=== PATIENT | male | born 1955 | race Caucasian/White ===

== ENCOUNTER 2024-06-01 18:13 | Inpatient (IN) ==
--- NOTE | 2024-06-01 19:16 | Emergency Department Note ---
Impression & Plan CHI (closed head injury), Contusion of face, Altered mental status ED Provider Note ED Provider Note NAME: BRADEN MCNULTY AGE:69 SEX: Male : 1955 ARRIVES VIA: Private vehicle INFORMANT: Brother ED PROVIDER(s): Jacque Birmingham DO CHIEF COMPLAINT: Concern for head injury, increased confusion HPI: This is a 69-year-old male brought in by his brother due to concern for increased confusion and obvious head/facial trauma. Patient cannot provide any adequate history here stating he does have bruises of his face but states it does not hurt. He denies falls or injuries. He will go off on tangents talking about trying to find his phone and then about laying in bed. Patient does have a prior history of mild cognitive impairment, brother at bedside tries to help with history. Patient denies any medication changes. He denies any use of anticoagulation. Brother states neighbors contacted him due to concern for abnormal behavior and increased confusion. Unknown last known well. PAST MEDICAL HISTORY:See Below PAST SURGICAL HISTORY:See Below FAMILY HISTORY:See Below SOCIAL HISTORY:See Below HOME MEDICATIONS:See Below ALLERGIES:See Below VITALS:See Below PHYSICAL EXAMINATION: GENERAL: alert, well appearing, well nourished, no distress, non-toxic HEAD: Obvious facial contusions noted to the left periorbital region and left zygomatic arch, dried blood noted to vertex and superior occipital region of the head, no obvious deformity to the skull, no bellamy signs, no raccoon eyes EYE EXAM: normal conjunctiva, PERRL and EOM's grossly intact OROPHARYNX: no exudate, no erythema, lips, buccal mucosa, and tongue normal and mucous membranes are moist NECK: supple, no nuchal rigidity, no adenopathy, non-tender, FROM LUNGS: Clear to auscultation. Normal chest wall mechanics, no w/r/r HEART: no murmurs, S1 normal and S2 normal CHEST WALL: no crepitus, no tenderness with palpation ABDOMEN: abdomen soft, non-tender, normo-active bowel sounds, no masses, no rebound or guarding. BACK: Back is symmetrical on inspection and there is no deformity, no midline tenderness, no CVA tenderness. No evidence of trauma or deformity. SKIN: no rashes, petechiae, orbruising UPPER EXTREMITIES: upper extremities are grossly normal. FROM, nml pulses b/l. No evidence of trauma or deformity. LOWER EXTREMITIES: No pitting edema. FROM, nml pulses b/l. No evidence of trauma or deformity. NEURO EXAM: Confused, cranial nerves II-XII grossly intact, normal speech, no facial droop,nogross weakness of arms, no gross weakness of legs. Gross sensation intact. No ataxia. Vital Signs: reviewed and remarkable Differential Diagnosis: CHI, ICH, CVA, fracture, ligamentous injury, spinal cord injury, subluxation, dislocation, as well as others were considered MEDICAL DECISION MAKING: This is a 69 yo male who presents to the ER with brother at bedside due to confusion and obvious trauma with unknown recent injuries/fall. Labs drawn and sent, IV established, EKG and xrays performed and interpreted at bedside, and patient placed on telemetry. He was sent for CT's additionally due to obvious facial trauma which patient is not able to explain. Patient confused and tangential at bedside. He could follow simple commands. He denied falls/injury however neightbors contacted brother due to concern as well. Labs and imaging reassuring. We discussed ddx. Brother does state he has a prior hx of etoh abuse. Brother concerned given confusion, obvious trauma, and patient lives alone. We discussed all results. Brother in agreement with plan for additional inpatient evaluation and mgmt. Case discussed with the hospitalist team for addtional evaluation and mgmt. Consultation(s): 2124: Discussed with Dr. Dana monsalve. He states no SDH. 2329: Discussed with Dr. Dowd, [facility] hospitalist team, for additional evaluation and management. ER Treatment Provided: See below 2250: Patient's brother updated again at bedside. In agreement with plan for additional inpatient evaluation. He states patient was scheduled to see neurology as an outpatient tomorrow. Diagnostics Interpreted By Me: -ECG: Normal sinus at 60, normal axis, normal intervals, no acute ST/T wave changes -Cardiac Monitoring: An order was placed for continuous cardiac monitoring. The monitor shows a rate of 66 with normal sinus rhythm. -Laboratory studies: As stated above and show below. -Imaging studies: X-ray Chest: A single view study of the chest was reviewed and was negative for cardiomegaly, focal infiltrate, effusion, pulmonary edema, or wide mediastinum. No rib fracture, no pneumothorax. X-ray pelvis: No obvious fracture or dislocation. Triage Nursing Note Reviewed Prior/Outside Records Reviewed Critical Care: Critical care of 39 min performed to assess and manage high likelihood of life- threatening AMS and trauma, involving labs and imaging performed with assessment to evaluate AMS and trauma diagnosis with frequent reassessment. This time includes bedside time, treatment discussions with patient/family/consultants, documentation time and excludes procedure time. Past Med/Surg History Problem List (Updated 06/02/24 @ 09:54 by Juan Dawn MD) Encephalopathy Hypertension Hypokalemia Elevated troponin History of alcohol abuse Altered mental status (Acute) Contusion of face (Acute) CHI (closed head injury) (Acute) Insomnia Fatigue Mild cognitive impairment Rash Obstructive sleep apnea Hypogonadism male Fatigue Pituitary adenoma Hypothyroidism Major neurocognitive disorder Social History Smoking Status: Never smoker Hx Alcohol Use: Yes Hx Substance Use: No Preferred Language: [place] Communication Ability: Impaired Social Media Marketing Analyst Required: No Beliefs That Will Affect Care: None Current Living Situation: Alone Feels Safe at Home: Yes Assistive Devices: CPAP, Glasses and Hearing Aid - Bilateral Allergies Allergies Allergy/AdvReac Type Severity Reaction Status Date / Time morphine Allergy Unknown Verified 05/20/24 14:45 Home Meds Home Medications Medication Instructions Recorded Confirmed latanoprost 0.005 % eye drops 1 drp ophthalmic (eye) HS 01/19/22 06/01/24 pantoprazole 40 mg tablet,delayed 40 mg PO DAILYBB 01/19/22 06/01/24 release omega 4-puj-vpk-fish oil 60 mg-90 1 cap PO BID 10/06/22 06/01/24 mg-500 mg capsule (Fish Oil) quetiapine 300 mg tablet (Seroquel) 150 mg PO HS 04/21/23 06/01/24 chlorthalidone 25 mg tablet 25 mg PO QAM 12/01/23 06/01/24 azelastine 137 mcg (0.1 %) nasal 2 spray intranasal BID 12/14/23 06/01/24 spray zolpidem 10 mg tablet 10 mg PO HS 05/20/24 06/01/24 atorvastatin 20 mg tablet 20 mg PO HS 06/01/24 06/01/24 fluticasone propionate 50 2 spray intranasal DAILY 06/01/24 06/01/24 mcg/actuation nasal spray,suspension ipratropium bromide 42 mcg (0.06 2 spray intranasal TID PRN 06/01/24 06/01/24 %) nasal spray Allergic Symptoms levothyroxine 50 mcg tablet 50 mcg PO DAILYBB 06/01/24 06/01/24 losartan 50 mg tablet 50 mg PO HS 06/01/24 06/01/24 trazodone 100 mg tablet 200 mg PO HS 06/01/24 06/01/24 Previous Rx's Medication Instructions Recorded syringe with needle 3 mL 25 x 5/8" #50 ea 04/21/23 (BD Eclipse Luer-Alba) modafinil 100 mg tablet 100 mg PO DAILY #30 tabs 05/16/24 Results & Data (ED) Vital Signs Vital Signs - 24 hr 06/01/24 18:32 06/01/24 22:00 Temperature 36.8 C Temperature Source Temporal Artery Scan Pulse Rate 69 Pulse Rate [Finger] 63 Pulse Rhythm [Finger] Regular Pulse Strength [Finger] Normal Respiratory Rate 18 20 Respiratory Effort / Characteristics Non-Labored Spontaneous Non-Labored Spontaneous Respiratory Depth Normal Normal Respiratory Pattern Regular Blood Pressure 142/81 H Blood Pressure [Right Arm] 136/75 Blood Pressure Mean 101 Blood Pressure Mean [Right Arm] 95 Blood Pressure Position Sitting Blood Pressure Position [Right Arm] Lying Pulse Oximetry 97 97 Oxygen Delivery Method Room Air Room Air Sepsis Recent Fever Within 48 Hours No Sepsis New/Unexplained Change in Mental Status No Sepsis Action Taken by Nursing No Action Required Laboratory Data 06/01/24 19:08 06/01/24 19:08 Lab Results 06/01/24 06/01/24 Range/Units 19:08 22:00 WBC 11.29 H (4.8-10.8) K/ul RBC 4.73 (4.70-6.10) M/uL Hgb 14.6 (14.0-18.0) g/dl Hct 40.0 L (42.0-52.0) % MCV 84.6 (80.0-100.0) fL MCH 30.9 (25.0-34.0) pg MCHC 36.5 H (32.0-36.0) g/dL RDW Std Deviation 38.9 (36.4-46.3) fL RDW Coeff of Elsie 12.6 (11.5-14.5) % Plt Count 288 (130-400) K/uL MPV 9.5 (9.4-12.4) fL Immature Gran % (Auto) 0.2 % Neut % (Auto) 71.0 % Lymph % (Auto) 18.2 % [place] % (Auto) 10.0 % Eos % (Auto) 0.3 % Baso % (Auto) 0.3 % Neut # (Auto) 8.02 H (1.40-6.50) K/uL Lymph # (Auto) 2.06 (1.20-3.40) K/uL [place] # (Auto) 1.13 H (0.11-0.59) K/uL Eos # (Auto) 0.03 (0.00-0.50) K/uL Baso # (Auto) 0.03 (0.00-0.20) K/uL Immature Gran # (Auto) 0.02 (0.01-0.20) K/uL ESR 15 (0-20) mm/hr PT 11.0 (9.0-12.0) Seconds INR 1.0 (0.9-1.1) Sodium 135 L (136-145) mmol/L Potassium 3.0 L (3.5-5.1) mmol/L Chloride 94 L (98-107) mmol/L Carbon Dioxide 32 (21-32) mmol/L Anion Gap 9 (3-11) BUN 19 (6-23) mg/dl Creatinine 1.01 (0.6-1.4) mg/dl Est Cr Clr Drug Dosing 65.8 ml/min Est GFR ( Amer) 87.6 ml/min Est GFR (Non-Af Amer) 75.5 ml/min BUN/Creatinine Ratio 18.8 (10-20) Glucose 115 H (70-99(Fasting)) mg/dl Calcium 10.2 (8.6-10.3) mg/dl Magnesium 2.3 (1.7-2.4) mg/dl Total Bilirubin 1.5 H (0.2-1.0) mg/dl AST 78 H (13-39) U/L ALT 34 (7-52) U/L Alkaline Phosphatase 59 (34-104) U/L Troponin I High Sens 66.8 H* (0-20) pg/ml Total Protein 7.5 (6.0-8.3) gm/dl Albumin 4.6 (3.4-5.0) gm/dl Globulin 2.9 (2.5-4.0) gm/dl Albumin/Globulin Ratio 1.6 (0.9-2) Lipase 10 L (11-82) U/L Vitamin B12 521 (180-914) pg/ml Folate > 22.30 (>5.38) ng/ml TSH 0.394 (0.300-4.500) uIu/ml Urine Color Yellow Urine Appearance Clear (Clear) Urine pH 6.5 (4.5-7.5) Ur Specific [place] 1.017 (1.000-1.030) Urine Protein Trace H (Negative) Urine Glucose (UA) Negative (Negative) Urine Ketones Trace H (Negative) Urine Blood Negative (Negative) Urine Nitrite Negative (Negative) Urine Bilirubin Negative (Negative) Urine Urobilinogen Negative (Negative) Ur Leukocyte Esterase Negative (Negative) Urine WBC (Auto) 0-5 (0-5) /hpf Urine RBC (Auto) 6-10 H (0-2) /hpf U Hyaline Cast (Auto) 0-2 (0-2) /lpf U Epithel Cells (Auto) 0-2 (0-2) /hpf Urine Bacteria (Auto) None Seen (None Seen) Ethyl Alcohol mg/dL < 10.0 (<10.0) mg/dl Lyme Disease Screen Positive H (Negative) Lyme Tier 2 IgG Confirm Positive H (Negative) Lyme Tier 2 IgM Confirm Negative (Negative) Administered Medications Atorvastatin Calcium (Atorvastatin 40 Mg Tab) 40 mg PO HS LACEY Stop: 07/02/24 20:59 Last Admin: 06/02/24 21:22 Dose: 40 mg Documented By: RHONA Azelastine HCl (Azelastine Hcl 0.1% Nasal 200 Sprays/27,400 Mcg Btl) 2 sprays JOSE BID LACEY Stop: 07/02/24 08:59 Last Admin: 06/03/24 07:24 Dose: 2 sprays Documented By: Admin: 06/02/24 21:23 Dose: 2 sprays Documented By: Admin: 06/02/24 08:14 Dose: 2 sprays Documented By: Fish Oil ([place]-3 (Purified Fish Oil) 1 Gm Cap) 1 gm PO BID LACEY Stop: 07/02/24 08:59 Last Admin: 06/03/24 07:23 Dose: 1 gm Documented By: Admin: 06/02/24 21:22 Dose: 1 gm Documented By: Admin: 06/02/24 08:15 Dose: 1 gm Documented By: Fluticasone Propionate (Fluticasone Propionate Na Spr 16 Gm Btl) 2 sprays JOSE DAILY LACEY Stop: 07/02/24 08:59 Last Admin: 06/03/24 07:24 Dose: 2 sprays Documented By: Admin: 06/02/24 08:14 Dose: 2 sprays Documented By: Thiamine HCl 100 mg/ Syringe 10 mls @ 2 mls/[facility] [place] Stop: 07/02/24 08:59 Last Admin: 06/03/24 07:24 Dose: 2 mls/min Documented By: Admin: 06/02/24 08:16 Dose: 2 mls/min Documented By: Folic Acid 1 mg/ Syringe 10 mls @ 5 mls/min IV QAM LACEY Stop: 07/02/24 08:59 Last Admin: 06/03/24 07:24 Dose: 5 mls/min Documented By: Admin: 06/02/24 08:15 Dose: 5 mls/min Documented By: Latanoprost (Latanoprost 0.005% Op Soln 2.5 Ml Btl) 1 drops OP HS LACEY Stop: 07/02/24 20:59 Last Admin: 06/02/24 21:32 Dose: 1 drops Documented By: RHONA Levothyroxine Sodium (Levothyroxine Sodium 50 Mcg Tablet) 50 mcg PO DAILYBB LACEY Stop: 07/02/24 06:29 Last Admin: 06/03/24 05:42 Dose: 50 mcg Documented By: Admin: 06/02/24 06:07 Dose: 50 mcg Documented By: ANAY Losartan Potassium (Losartan Potassium 50 Mg Tab) 50 mg PO HS LACEY Stop: 07/02/24 20:59 Last Admin: 06/02/24 21:22 Dose: 50 mg Documented By: RHONA Pantoprazole Sodium (Pantoprazole 40 Mg Tab) 40 mg PO DAILYBB LACEY Stop: 07/02/24 06:29 Last Admin: 06/03/24 05:42 Dose: 40 mg Documented By: Admin: 06/02/24 06:07 Dose: 40 mg Documented By: ANAY Quetiapine Fumarate (Quetiapine Fumarate 25 Mg Tablet) 50 mg PO [facility] Stop: 07/02/24 20:59 Last Admin: 06/02/24 21:23 Dose: 50 mg Documented By: RHONA Trazodone HCl (Trazodone Hcl 100 Mg Tab) 200 mg PO LACEY Stop: 07/02/24 20:59 Last Admin: 06/02/24 21:22 Dose: 200 mg Documented By: RHONA Discontinued Medications Sodium Chloride (Nss) 1,000 mls @ 250 mls/hr IV .Q4H LACEY Stop: 07/01/24 18:59 Last Admin: 06/02/24 03:46 Dose: Not Given Documented By: Infusion: 06/02/24 01:36 Dose: Infused Documented By: Infusion: 06/02/24 01:31 Dose: Infused Documented By: Admin: 06/01/24 20:20 Dose: 250 mls/hr Documented By: NEWTON Thiamine HCl 100 mg/ Syringe 10 mls @ 2 mls/min IV NOW STA Stop: 06/01/24 21:32 Last Admin: 06/01/24 22:10 Dose: 2 mls/min Documented By: NEWTON Thiamine HCl 400 mg/ Sodium (Chloride) 54 mls @ 210 mls/hr IV NOW STA Stop: 06/02/24 00:19 Last Infusion: 06/02/24 01:33 Dose: Infused Documented By: Admin: 06/02/24 01:07 Dose: 210 mls/hr Documented By: NEWTON Folic Acid 1 mg/ Syringe 10 mls @ 5 mls/min IV NOW STA Stop: 06/02/24 00:05 Last Admin: 06/02/24 01:08 Dose: 5 mls/min Documented By: NEWTON Potassium Chloride/Sodium Chloride (Normal Saline W/20 Meq Kcl) 20 meq in 1,000 mls @ 100 mls/hr IV .Q10H LACEY Stop: 06/02/24 19:44 Last Infusion: 06/03/24 02:39 Dose: Infused Documented By: Admin: 06/02/24 14:19 Dose: 100 mls/hr Documented By: Infusion: 06/02/24 11:07 Dose: Infused Documented By: Admin: 06/02/24 01:07 Dose: 100 mls/hr Documented By: ASIA Imaging Data Radiologist's Impression: Cervical Spine CT 06/01/24 19:00 Exam(s): CT C SPINE EXAM: CT Cervical Spine Without Intravenous Contrast CLINICAL HISTORY: Reason for exam: trauma. TECHNIQUE: Axial computed tomography images of the cervical spine without intravenous contrast. CTDI is 26.96 mGy and DLP is 745.15 mGy-cm. Automated exposure control was utilized for the study. A dose lowering technique was utilized adhering to the principles of ALARA. COMPARISON: No relevant prior studies available. FINDINGS: Vertebrae: Status post anterior fusion of C4, C5 and C6 with compression plate and screws in place. No evidence of surgical hardware complication. No acute fracture. Discs/spinal canal/neural foramina: No acute findings. No spinal canal stenosis. Soft tissues: Unremarkable. IMPRESSION: No evidence of acute cervical spine pathology. Electronically signed by: Ayla Cortez MD 06/01/24 21:[address] 06/01/24 19:00 Exam(s): CT HEAD Without Contrast EXAM: CT Head Without Intravenous Contrast CLINICAL HISTORY: Reason for exam: trauma. TECHNIQUE: Axial computed tomography images of the head/brain without intravenous contrast. CTDI is 34.62 mGy and DLP is 624.41 mGy-cm. Automated exposure control was utilized for the study. A dose lowering technique was utilized adhering to the principles of ALARA. COMPARISON: Prior brain MRI from May 20, 2023. FINDINGS: Study is limited secondary to motion artifact. Brain: Unremarkable. No hemorrhage. No significant white matter disease. No edema. Ventricles: Unremarkable. No ventriculomegaly. Bones/joints: Unremarkable. No acute fracture. Soft tissues: Unremarkable. Sinuses: Unremarkable as visualized. No acute sinusitis. Mastoid air cells: Unremarkable as visualized. No mastoid effusion. IMPRESSION: No evidence of acute intracranial pathology. Electronically signed by: Ayla Cortez MD 06/01/24 21:[address] 06/01/24 19:01 Exam(s): CT FACIAL Without Contrast EXAM: CT Head and Maxillofacial Without Intravenous Contrast CLINICAL HISTORY: Reason for exam: trauma. TECHNIQUE: Axial computed tomography images of the head/brain and face without intravenous contrast. CTDI is 34.62 mGy and DLP is 624.41 mGy-cm. Automated exposure control was utilized for the study. A dose lowering technique was utilized adhering to the principles of ALARA. COMPARISON: No relevant prior studies available. FINDINGS: This study is suboptimal secondary to motion artifact. Brain: Unremarkable. No hemorrhage. No significant white matter disease. No edema. Ventricles: Unremarkable. No ventriculomegaly. Bones/joints: No acute fracture. Soft tissues: Unremarkable. Sinuses: Chronic maxillary and ethmoid sinusitis. No acute sinusitis. Mastoid air cells: Unremarkable as visualized. No mastoid effusion. Orbits: Unremarkable as visualized. IMPRESSION: No evidence of acute facial bone pathology. Electronically signed by: Ayla Cortez MD 06/01/24 21:10 PM Discharge Plan Visit Data Chief Complaint: Head Injury, Minor Stated Complaint: FALL, FACE AND HEAD ED Provider: Jacque Birmingham Discharge Problem: CHI (closed head injury), Contusion of face, Altered mental status Patient Disposition: Admitted As Inpatient Discharge Instructions Interventions: ED Discharge Assessment Last Done: 06/02/24 02:18
[2024-06-01 19:30] LABS: Basophils # (auto) 0.03 K/uL (0.00-0.20); Basophils % (auto) 0.3 %; Eosinophils # (auto) 0.03 K/uL (0.00-0.50); Eosinophils % (auto) 0.3 %; Hemoglobin 14.6 g/dl (14.0-18.0); Immature Granulocytes # (auto) 0.02 K/uL (0.01-0.20); Immature Granulocytes % (auto) 0.2 %; Lymphocytes # (auto) 2.06 K/uL (1.20-3.40); Lymphocytes % (auto) 18.2 %; Mean Corpuscular Hemoglobin 30.9 pg (25.0-34.0); Mean Corpuscular Hgb Conc 36.5 g/dL (32.0-36.0); Mean Corpuscular Volume 84.6 fL (80.0-100.0); Mean Platelet Volume 9.5 fL (9.4-12.4); Monocytes # (auto) 1.13 K/uL (0.11-0.59); Neutrophils # (auto) 8.02 K/uL (1.40-6.50); Platelet Count 288 K/uL (130-400); RDW Coefficient of Variation 12.6 % (11.5-14.5); RDW Standard Deviation 38.9 fL (36.4-46.3); Red Blood Count 4.73 M/uL (4.70-6.10); White Blood Count 11.29 K/ul (4.8-10.8)
[2024-06-01 19:46] LABS: Albumin Globulin Ratio 1.6 (0.9-2); Albumin Level 4.6 gm/dl (3.4-5.0); BUN Creatinine Ratio 18.8 (10-20); Bilirubin,Total 1.5 mg/dl (0.2-1.0); Calcium 10.2 mg/dl (8.6-10.3); Creatinine Clr Calc Pharmacy 65.8 ml/min; Est GFR (African American) 87.6 ml/min; Est GFR (Non-African American) 75.5 ml/min; Globulin 2.9 gm/dl (2.5-4.0); Magnesium 2.3 mg/dl (1.7-2.4); Total Protein 7.5 gm/dl (6.0-8.3)
[2024-06-01 20:01] LABS: Thyroid Stimulating Hormone 0.394 uIu/ml (0.300-4.500)
[2024-06-01 20:15] LABS: Troponin I High Sensitivity 66.8 pg/ml (0-20)
[2024-06-01] MEDS: SODIUM CHLORIDE 0.9% 1,000 ML IV SCH (20:20)
--- NOTE | 2024-06-01 21:04 | CT Scan Report ---
Exam(s): CT HEAD Without Contrast EXAM: CT Head Without Intravenous Contrast CLINICAL HISTORY: Reason for exam: trauma. TECHNIQUE: Axial computed tomography images of the head/brain without intravenous contrast. CTDI is 34.62 mGy and DLP is 624.41 mGy-cm. Automated exposure control was utilized for the study. A dose lowering technique was utilized adhering to the principles of ALARA. COMPARISON: Prior brain MRI from May 20, 2023. FINDINGS: Study is limited secondary to motion artifact. Brain: Unremarkable. No hemorrhage. No significant white matter disease. No edema. Ventricles: Unremarkable. No ventriculomegaly. Bones/joints: Unremarkable. No acute fracture. Soft tissues: Unremarkable. Sinuses: Unremarkable as visualized. No acute sinusitis. Mastoid air cells: Unremarkable as visualized. No mastoid effusion. IMPRESSION: No evidence of acute intracranial pathology. Electronically signed by: Ayla Cortez MD 06/01/24 21:04 PM
--- NOTE | 2024-06-01 21:07 | CT Scan Report ---
Exam(s): CT C SPINE EXAM: CT Cervical Spine Without Intravenous Contrast CLINICAL HISTORY: Reason for exam: trauma. TECHNIQUE: Axial computed tomography images of the cervical spine without intravenous contrast. CTDI is 26.96 mGy and DLP is 745.15 mGy-cm. Automated exposure control was utilized for the study. A dose lowering technique was utilized adhering to the principles of ALARA. COMPARISON: No relevant prior studies available. FINDINGS: Vertebrae: Status post anterior fusion of C4, C5 and C6 with compression plate and screws in place. No evidence of surgical hardware complication. No acute fracture. Discs/spinal canal/neural foramina: No acute findings. No spinal canal stenosis. Soft tissues: Unremarkable. IMPRESSION: No evidence of acute cervical spine pathology. Electronically signed by: Ayla Cortez MD 06/01/24 21:06 PM
--- NOTE | 2024-06-01 21:11 | CT Scan Report ---
Exam(s): CT FACIAL Without Contrast EXAM: CT Head and Maxillofacial Without Intravenous Contrast CLINICAL HISTORY: Reason for exam: trauma. TECHNIQUE: Axial computed tomography images of the head/brain and face without intravenous contrast. CTDI is 34.62 mGy and DLP is 624.41 mGy-cm. Automated exposure control was utilized for the study. A dose lowering technique was utilized adhering to the principles of ALARA. COMPARISON: No relevant prior studies available. FINDINGS: This study is suboptimal secondary to motion artifact. Brain: Unremarkable. No hemorrhage. No significant white matter disease. No edema. Ventricles: Unremarkable. No ventriculomegaly. Bones/joints: No acute fracture. Soft tissues: Unremarkable. Sinuses: Chronic maxillary and ethmoid sinusitis. No acute sinusitis. Mastoid air cells: Unremarkable as visualized. No mastoid effusion. Orbits: Unremarkable as visualized. IMPRESSION: No evidence of acute facial bone pathology. Electronically signed by: Ayla Cortez MD 06/01/24 21:10 PM
[2024-06-01] MEDS: THIAMINE HCL 100 MG in SYRINGE 9 ML IV STA (22:10)
[2024-06-01 22:30] LABS: Appearance Urine Clear (Clear); Bacteria Urine Automated None Seen (None Seen); Bilirubin Urine Negative (Negative); Blood Urine Negative (Negative); Cast Urine Automated 0-2 /lpf (0-2); Color Urine Yellow; Epithelial Cell Urine Auto 0-2 /hpf (0-2); Glucose Urine UA Negative (Negative); Ketones Urine Trace (Negative); Leukocyte Esterase Urine Negative (Negative); Nitrite Urine Negative (Negative); Protein Urine Trace (Negative); Specific Gravity Urine 1.017 (1.000-1.030); Urobilinogen Urine Negative (Negative); WBC Urine Automated 0-5 /hpf (0-5); pH Urine 6.5 (4.5-7.5)
--- NOTE | 2024-06-02 00:04 | History & Physical Report ---
Date of Service June 02, 2024 Assessment & Plan (1) Altered mental status: (2) Contusion of face: (3) CHI (closed head injury): (4) Major neurocognitive disorder: (5) Hypothyroidism: (6) Obstructive sleep apnea: (7) History of alcohol abuse: (8) Elevated troponin: (9) Hypokalemia: (10) Hypertension: Plan Altered mental status/history of neurocognitive disorder/history of alcohol abuse- Patient has no recollection of how his wallet, glasses and other personal facts were outside found by his neighbors, who notified his brother. CT scan head negative CT scan cervical spine negative CT scan face negative Chest x-ray negative Pelvis x-ray negative MRI brain is negative Further admission for metabolic workup Question whether patient may have Warnicke's encephalopathy as an underlying process for his neurocognitive disorder For now we will hold modafinil, and zolpidem Continue trazodone at decreased dose of 100 mg at bedtime, and continue quetiapine at 150 mg at bedtime Will consult neurology Dr. Dawn, whom the patient has an outpatient appointment with for new patient evaluation later on in the day on 06/02 Order vitamin B12 and folate levels Order ESR, TAMIKA, tickborne studies Order EEG Elevated troponin/hypertension- Troponin 66.8 upon admission, with follow-up laboratories ordered and pending EKG without acute changes The patient will be admitted to telemetry for serial cardiac enzymes, serial EKG's, cardiac rhythm monitoring and a 2-D echocardiogram with Dopplers. History of alcohol abuse/probable Warnicke's encephalopathy- Give a total of thiamine 500 mg IV now, then 100 mg daily Give folic acid 1 mg IV now NSS + KCl 20 mill equivalents at 100 mL/h x 2 L Hypokalemia- Potassium 3.0 Placed on IV fluids as noted above, recheck laboratories in a.m. History of Present Illness Chief Complaint: The patient is brought into the emergency department by his brother, due to the patient's increased confusion, head and facial trauma, the patient's lack of memory for any recent events, and neighbor reports that the patient's glasses, wallet and other possessions were outside on the ground, without patient having any recollection of what happened. When asked why he has bruises on his face, he reports that it was from lying down on his face for too long. His brother reports that he has had some developing memory issues over the past weeks to months, however, this today is a more acute departure and worsening. The brother reports that the patient's PCP has been trying to adjust his medications, however, the patient had been referred to neurology, Dr. Dawn, and actually has an appointment with them on 06/02. Primary Care Provider: Dalton Golden The patient is a 69-year-old male with a past medical history including mild cognitive impairment, LJ, male hypogonadism, pituitary adenoma, hypothyroidism, major neurocognitive disorder, hyperlipidemia, hypertension, chronic rhinitis, anxiety and insomnia. The patient presents as noted above. He is not able to contribute to his HPI or review of systems, due to an acute worsening of his chronic neurocognitive disorder. Allergies Allergy/AdvReac Type Severity Reaction Status Date / Time morphine Allergy Unknown Verified 05/20/24 14:45 Home Medications Medication Instructions Recorded Confirmed Type latanoprost 0.005 % eye drops 1 drp ophthalmic (eye) HS 01/19/22 06/01/24 History pantoprazole 40 mg tablet,delayed 40 mg PO DAILYBB 01/19/22 06/01/24 History release omega 1-ura-gyl-fish oil 60 mg-90 1 cap PO BID 10/06/22 06/01/24 History mg-500 mg capsule (Fish Oil) quetiapine 300 mg tablet (Seroquel) 150 mg PO HS 04/21/23 06/01/24 History syringe with needle 3 mL 25 x 5/8" #50 ea 04/21/23 06/01/24 Rx (BD Eclipse Luer-Alba) chlorthalidone 25 mg tablet 25 mg PO QAM 12/01/23 06/01/24 History azelastine 137 mcg (0.1 %) nasal 2 spray intranasal BID 12/14/23 06/01/24 History spray modafinil 100 mg tablet 100 mg PO DAILY #30 tabs 05/16/24 06/01/24 Rx zolpidem 10 mg tablet 10 mg PO HS 05/20/24 06/01/24 History atorvastatin 20 mg tablet 20 mg PO HS 06/01/24 06/01/24 History fluticasone propionate 50 2 spray intranasal DAILY 06/01/24 06/01/24 History mcg/actuation nasal spray,suspension ipratropium bromide 42 mcg (0.06 2 spray intranasal TID PRN 06/01/24 06/01/24 History %) nasal spray Allergic Symptoms levothyroxine 50 mcg tablet 50 mcg PO DAILYBB 06/01/24 06/01/24 History losartan 50 mg tablet 50 mg PO HS 06/01/24 06/01/24 History trazodone 100 mg tablet 200 mg PO HS 06/01/24 06/01/24 History Past Med/Surg History Problem List (Updated 06/02/24 @ 05:26 by Bala Dowd MD) Hypertension Hypokalemia Elevated troponin History of alcohol abuse Altered mental status (Acute) Contusion of face (Acute) CHI (closed head injury) (Acute) Insomnia Fatigue Mild cognitive impairment Rash Obstructive sleep apnea Hypogonadism male Fatigue Pituitary adenoma Hypothyroidism Major neurocognitive disorder Social History Smoking Status: Never smoker Hx Alcohol Use: Yes Hx Substance Use: No Preferred Language: Kenyan Communication Ability: Impaired Wood Gouger Required: No Beliefs That Will Affect Care: None Current Living Situation: Alone Feels Safe at Home: Yes Safety Concerns: Feels Safe At This Time Assistive Devices: Glasses and Hearing Aid - Bilateral Review of Systems Review of Systems: As noted, the patient is not able to contribute significantly to his HPI or ROS due to an acute worsening of his chronic neurocognitive disorder, and information is supplied by the patient's brother, who is with him in the emergency department Physical Exam Physical Exam: The patient is awake, responds to questions with inappropriate answers due to confusion, well developed and well nourished, multiple facial bruises to the lips cheeks and forehead. Otherwise in no acute distress. HEENT--PERRL, EOMI, multiple facial bruises as noted Neck--supple. No JVD. No bruits. Thyroid normal, trachea midline, no adenopathy. Heart--normal S1 and S2. No murmurs, rubs or gallops. Lungs--clear bilaterally, no respiratory distress, no accessory muscle use. Abdomen--normal bowel sounds and soft. Nontender. Nondistended, no hernias or masses, no organomegaly. Extremities--No edema. Dermatologic--normal except for facial bruising is noted Neurologic--cranial nerves II through XII grossly intact. Rheumatologic--normal range of motion. Psychiatric--confusion Results & Data Results & Data Vital Signs (Past 12 Hours) Vital Signs Temp Pulse Pulse Resp BP BP Pulse Ox 06/01/24 22:00 63 20 136/75 97 06/01/24 18:32 36.8 C 69 18 142/81 H 97 O2 Del Method 06/01/24 22:00 Room Air 06/01/24 18:32 Room Air Laboratory Results Laboratory Results WBC 11.29 K/ul (4.8-10.8) H 06/01/24 19:08 RBC 4.73 M/uL (4.70-6.10) 06/01/24 19:08 Hgb 14.6 g/dl (14.0-18.0) 06/01/24 19:08 Hct 40.0 % (42.0-52.0) L 06/01/24 19:08 MCV 84.6 fL (80.0-100.0) 06/01/24 19:08 MCH 30.9 pg (25.0-34.0) 06/01/24 19:08 MCHC 36.5 g/dL (32.0-36.0) H 06/01/24 19:08 RDW Std Deviation 38.9 fL (36.4-46.3) 06/01/24 19:08 RDW Coeff of Elsie 12.6 % (11.5-14.5) 06/01/24 19:08 Plt Count 288 K/uL (130-400) 06/01/24 19:08 MPV 9.5 fL (9.4-12.4) 06/01/24 19:08 Immature Gran % (Auto) 0.2 % 06/01/24 19:08 Neut % (Auto) 71.0 % 06/01/24 19:08 Lymph % (Auto) 18.2 % 06/01/24 19:08 [place] % (Auto) 10.0 % 06/01/24 19:08 Eos % (Auto) 0.3 % 06/01/24 19:08 Baso % (Auto) 0.3 % 06/01/24 19:08 Neut # (Auto) 8.02 K/uL (1.40-6.50) H 06/01/24 19:08 Lymph # (Auto) 2.06 K/uL (1.20-3.40) 06/01/24 19:08 [place] # (Auto) 1.13 K/uL (0.11-0.59) H 06/01/24 19:08 Eos # (Auto) 0.03 K/uL (0.00-0.50) 06/01/24 19:08 Baso # (Auto) 0.03 K/uL (0.00-0.20) 06/01/24 19:08 Immature Gran # (Auto) 0.02 K/uL (0.01-0.20) 06/01/24 19:08 ESR 15 mm/hr (0-20) 06/01/24 19:08 PT 11.0 Seconds (9.0-12.0) 06/01/24 19:08 INR 1.0 (0.9-1.1) 06/01/24 19:08 Sodium 135 mmol/L (136-145) L 06/01/24 19:08 Potassium 3.0 mmol/L (3.5-5.1) L 06/01/24 19:08 Chloride 94 mmol/L (98-107) L 06/01/24 19:08 Carbon Dioxide 32 mmol/L (21-32) 06/01/24 19:08 Anion Gap 9 (3-11) 06/01/24 19:08 BUN 19 mg/dl (6-23) 06/01/24 19:08 Creatinine 1.01 mg/dl (0.6-1.4) 06/01/24 19:08 Est Cr Clr Drug Dosing 65.8 ml/min 06/01/24 19:08 Est GFR ( Amer) 87.6 ml/min 06/01/24 19:08 Est GFR (Non-Af Amer) 75.5 ml/min 06/01/24 19:08 BUN/Creatinine Ratio 18.8 (10-20) 06/01/24 19:08 Glucose 115 mg/dl (70-99(Fasting)) H 06/01/24 19:08 Calcium 10.2 mg/dl (8.6-10.3) 06/01/24 19:08 Magnesium 2.3 mg/dl (1.7-2.4) 06/01/24 19:08 Total Bilirubin 1.5 mg/dl (0.2-1.0) H 06/01/24 19:08 AST 78 U/L (13-39) H 06/01/24 19:08 ALT 34 U/L (7-52) 06/01/24 19:08 Alkaline Phosphatase 59 U/L (34-104) 06/01/24 19:08 Troponin I High Sens 61.5 pg/ml (0-20) H* 06/02/24 00:25 Total Protein 7.5 gm/dl (6.0-8.3) 06/01/24 19:08 Albumin 4.6 gm/dl (3.4-5.0) 06/01/24 19:08 Globulin 2.9 gm/dl (2.5-4.0) 06/01/24 19:08 Albumin/Globulin Ratio 1.6 (0.9-2) 06/01/24 19:08 Triglycerides 62 mg/dl (0-150) 06/02/24 00:25 Cholesterol 126 mg/dl (0-200) 06/02/24 00:25 LDL Cholesterol, Calc 56 mg/dl 06/02/24 00:25 VLDL Cholesterol, Calc 12 mg/dl (0-30) 06/02/24 00:25 HDL Cholesterol 58 mg/dl 06/02/24 00:25 Cholesterol/HDL Ratio 2.2 (0-5) 06/02/24 00:25 Lipase 10 U/L (11-82) L 06/01/24 19:08 Vitamin B12 521 pg/ml (180-914) 06/01/24 19:08 Folate > 22.30 ng/ml (>5.38) 06/01/24 19:08 TSH 0.394 uIu/ml (0.300-4.500) 06/01/24 19:08 Urine Color Yellow 06/01/24 22:00 Urine Appearance Clear (Clear) 06/01/24 22:00 Urine pH 6.5 (4.5-7.5) 06/01/24 22:00 Ur Specific [place] 1.017 (1.000-1.030) 06/01/24 22:00 Urine Protein Trace (Negative) H 06/01/24 22:00 Urine Glucose (UA) Negative (Negative) 06/01/24 22:00 Urine Ketones Trace (Negative) H 06/01/24 22:00 Urine Blood Negative (Negative) 06/01/24 22:00 Urine Nitrite Negative (Negative) 06/01/24 22:00 Urine Bilirubin Negative (Negative) 06/01/24 22:00 Urine Urobilinogen Negative (Negative) 06/01/24 22:00 Ur Leukocyte Esterase Negative (Negative) 06/01/24 22:00 Urine WBC (Auto) 0-5 /hpf (0-5) 06/01/24 22:00 Urine RBC (Auto) 6-10 /hpf (0-2) H 06/01/24 22:00 U Hyaline Cast (Auto) 0-2 /lpf (0-2) 06/01/24 22:00 U Epithel Cells (Auto) 0-2 /hpf (0-2) 06/01/24 22:00 Urine Bacteria (Auto) None Seen (None Seen) 06/01/24 22:00 Ethyl Alcohol mg/dL < 10.0 mg/dl (<10.0) 06/01/24 19:08 Anaplasma Smear See Comment 06/02/24 00:25 Babesia Smear See Comment 06/02/24 00:25 Lyme Disease Screen Positive (Negative) H 06/01/24 19:08 Lyme Tier 2 IgG Confirm Positive (Negative) H 06/01/24 19:08 Lyme Tier 2 IgM Confirm Negative (Negative) 06/01/24 19:[address] 06/01/24 19:00 Exam(s): CT C SPINE EXAM: CT Cervical Spine Without Intravenous Contrast CLINICAL HISTORY: Reason for exam: trauma. TECHNIQUE: Axial computed tomography images of the cervical spine without intravenous contrast. CTDI is 26.96 mGy and DLP is 745.15 mGy-cm. Automated exposure control was utilized for the study. A dose lowering technique was utilized adhering to the principles of ALARA. COMPARISON: No relevant prior studies available. FINDINGS: Vertebrae: Status post anterior fusion of C4, C5 and C6 with compression plate and screws in place. No evidence of surgical hardware complication. No acute fracture. Discs/spinal canal/neural foramina: No acute findings. No spinal canal stenosis. Soft tissues: Unremarkable. IMPRESSION: No evidence of acute cervical spine pathology. Electronically signed by: Ayla Cortez MD 06/01/24 21:[address] 06/01/24 19:00 Exam(s): CT HEAD Without Contrast EXAM: CT Head Without Intravenous Contrast CLINICAL HISTORY: Reason for exam: trauma. TECHNIQUE: Axial computed tomography images of the head/brain without intravenous contrast. CTDI is 34.62 mGy and DLP is 624.41 mGy-cm. Automated exposure control was utilized for the study. A dose lowering technique was utilized adhering to the principles of ALARA. COMPARISON: Prior brain MRI from May 20, 2023. FINDINGS: Study is limited secondary to motion artifact. Brain: Unremarkable. No hemorrhage. No significant white matter disease. No edema. Ventricles: Unremarkable. No ventriculomegaly. Bones/joints: Unremarkable. No acute fracture. Soft tissues: Unremarkable. Sinuses: Unremarkable as visualized. No acute sinusitis. Mastoid air cells: Unremarkable as visualized. No mastoid effusion. IMPRESSION: No evidence of acute intracranial pathology. Electronically signed by: Ayla Cortez MD 06/01/24 21:[address] 06/01/24 19:01 Exam(s): CT FACIAL Without Contrast EXAM: CT Head and Maxillofacial Without Intravenous Contrast CLINICAL HISTORY: Reason for exam: trauma. TECHNIQUE: Axial computed tomography images of the head/brain and face without intravenous contrast. CTDI is 34.62 mGy and DLP is 624.41 mGy-cm. Automated exposure control was utilized for the study. A dose lowering technique was utilized adhering to the principles of ALARA. COMPARISON: No relevant prior studies available. FINDINGS: This study is suboptimal secondary to motion artifact. Brain: Unremarkable. No hemorrhage. No significant white matter disease. No edema. Ventricles: Unremarkable. No ventriculomegaly. Bones/joints: No acute fracture. Soft tissues: Unremarkable. Sinuses: Chronic maxillary and ethmoid sinusitis. No acute sinusitis. Mastoid air cells: Unremarkable as visualized. No mastoid effusion. Orbits: Unremarkable as visualized. IMPRESSION: No evidence of acute facial bone pathology. Electronically signed by: Ayla Cortez MD 06/01/24 21:10 PM Brain MRI 06/02/24 00:17 Exam(s): MRI HEAD Without Contrast EXAM: MR Head Without Intravenous Contrast CLINICAL HISTORY: Reason for exam: confusion. TECHNIQUE: Magnetic resonance images of the head/brain without intravenous contrast in multiple planes. COMPARISON: Prior head CT from June 01, 2024. FINDINGS: Brain: Unremarkable. No mass. No hemorrhage. No acute infarct. The flow voids at the base of the brain are intact. Ventricles: Unremarkable. No ventriculomegaly. Bones/joints: Unremarkable. No acute fracture. Sinuses: Chronic maxillary, ethmoid and right frontal sinusitis. No acute sinusitis. Mastoid air cells: Unremarkable as visualized. No mastoid effusion. Orbits: Bilateral lens replacements. IMPRESSION: Negative MRI of the brain. Electronically signed by: Ayla Cortez MD 06/02/24 02:30 AM Code Status & VTE Plan Code Status Full code VTE Prophylaxis Plan VTE Prophylaxis will be ordered: Yes PG Care Time/CCT Total # of Minutes Spent Total Time Spent with Patient: Total time spent is greater than 50% in coordination of care (as documented) at patient's floor/unit and/or counseling patient: Coding Level of Care Code 30884 INT INP/OBS CARE 3/75MIN Diagnoses Altered mental status R41.82 Contusion of face S00.83XA CHI (closed head injury) S09.90XA Major neurocognitive disorder F03.90 Other specified hypothyroidism E03.8 Hypothyroidism type: other Obstructive sleep apnea G47.33 History of alcohol abuse F10.11 Elevated troponin R79.89 Hypokalemia E87.6 Hypertension I10 (5) Hypothyroidism Hypothyroidism type: other Qualified Code(s): E03.8 - Other specified hypothyroidism
[2024-06-02 00:53] LABS: Chol HDL Ratio 2.2 (0-5)
[2024-06-02 01:07] LABS: Folate (Folic Acid),Ser orPlas > 22.30 ng/ml (>5.38)
[2024-06-02] MEDS: NSS + 20MEQ KCL 20 MEQ/1,000 ML BAG IV SCH (01:07)
[2024-06-02] MEDS: THIAMINE HCL 400 MG in SODIUM CHLORIDE 0.9% 50 ML IV STA (01:07)
[2024-06-02 01:08] LABS: Vitamin B12 521 pg/ml (180-914)
[2024-06-02] MEDS: FOLIC ACID 1 MG in SYRINGE 9.8 ML IV STA (01:08)
[2024-06-02 01:09] LABS: Lyme Screen Rflx Confirmation Positive (Negative)
[2024-06-02 01:13] LABS: Troponin I High Sensitivity 61.5 pg/ml (0-20)
[2024-06-02 01:44] LABS: Lyme Ab IgM 2nd Tier Confirm Negative (Negative)
[2024-06-02] MEDS ORDERED: LORazepam 2 MG/1 ML VIAL IV PRN ×3 (02:18)
[2024-06-02] MEDS ORDERED: Ativan IV Alcohol Withdrawal--Active Protocol IV PRN (02:18)
--- NOTE | 2024-06-02 02:31 | Magnetic Resonance Report ---
Exam(s): MRI HEAD Without Contrast EXAM: MR Head Without Intravenous Contrast CLINICAL HISTORY: Reason for exam: confusion. TECHNIQUE: Magnetic resonance images of the head/brain without intravenous contrast in multiple planes. COMPARISON: Prior head CT from June 01, 2024. FINDINGS: Brain: Unremarkable. No mass. No hemorrhage. No acute infarct. The flow voids at the base of the brain are intact. Ventricles: Unremarkable. No ventriculomegaly. Bones/joints: Unremarkable. No acute fracture. Sinuses: Chronic maxillary, ethmoid and right frontal sinusitis. No acute sinusitis. Mastoid air cells: Unremarkable as visualized. No mastoid effusion. Orbits: Bilateral lens replacements. IMPRESSION: Negative MRI of the brain. Electronically signed by: Ayla Cortez MD 06/02/24 02:30 AM
[2024-06-02 02:34] LABS: Lyme Ab IgG 2nd Tier Confirm Positive (Negative)
--- OUTSIDE RECORDS SUMMARY | 2024-06-02 04:19 | External Medical Summary | Continuity of Care Document ---
Author Name Unknown Organization [place] [id number] Address [address] [place] [id number] Care Team Providers Care [employer] Worker Name Role Phone Golden Dalton Primary Care Physician [phone] [id number] Date(s): 05/26/24 - 05/26/24 [facility] [place] [id number] [address] [place] [id number] Encounter Diagnosis SLAC (scapholunate advanced collapse) wrist(Discharge Diagnosis) - 05/26/24 Discharge Disposition: Home or Self Care Attending Physician: MD Lee Kenneth F Referring Physician: MD Devon, Leno Ribeiro Allergies, Adverse Reactions, Alerts Substance Criticality Severity Reaction Reaction Severity Status morphine Unknown Active Immunizations Given and Recorded Vaccine Date Status Refusal Reason zoster vaccine, inactivated 12/09/23 Recorded zoster vaccine, inactivated 12/09/23 Recorded zoster vaccine, inactivated 10/05/23 Recorded SARS-CoV-2 (COVID-19) mRNA-1273 vaccine 07/14/23 R ecorded influenza virus vaccine, inactivated 07/14/23 Roberth rded Medications azelastine 137 mcg/inh (0.1%) nasal spray Start: 04/29/24 3:01:00 PM EDT, 2 spray, intranasal, bid, Disp# 1 each, Refills: 3, PRN: as needed for allergy symptoms, [id number] Start Date: 04/29/24 Status: Ordered chlorthalidone 25 mg oral tablet Start: 05/20/24 5:17:00 PM EDT, 1 tab, PO, qAM, Disp# 30 tab, Refills: 4, [id number] Start Date: 05/20/24 Status: Ordered Depo-Testosterone 100 mg/mL intramuscular solution Start: 08/06/23 9:54:00 AM EST, See Instructions, 0.8ml every 10 days Start Date: 08/06/23 Status: Ordered Efudex 2% topical solution Start: 08/06/23 10:01:00 AM EST, 1 appl, topical, bid, Disp# 10 mL, Refills: 1, To scalp BID for 4 weeks, Pharmacy: [facility] 1640 Start Date: 08/06/23 Status: Ordered Fish Oil Softgel 1000mg Lemon Flv 180+70 TAKE 2 CAPSULES BY MOUTH TWICE DAILY Start Date: 06/05/22 Status: Ordered fluticasone 50 mcg/inh nasal spray Start: 04/29/24 3:02:00 PM EDT, 2 spray, each nostril, Daily, Disp# 16 g, Refills: 3, Pharmacy: [facility] Start Date: 04/29/24 Status: Ordered ipratropium 42 mcg/inh (0.06%) nasal spray Start: 04/29/24 3:02:00 PM EDT, 2 spray, each nostril, tid, Disp# 1 each, Refills: 1, in each nostril, PRN: as needed for allergy symptoms, Pharmacy: [facility] 1640 Start Date: 04/29/24 Status: Ordered latanoprost 0.005% ophthalmic solution USE 1 DROP IN BOTH EYES AT BEDTIME Start Date: 06/05/22 Status: Ordered levothyroxine 50 mcg (0.05 mg) oral tablet Start: 06/05/22 1:20:00 PM EDT, 1 tab, PO, Daily Start Date: 06/05/22 Status: Ordered Lipitor 20 mg oral tablet Start: 05/04/24 7:58:00 AM EDT, 1 tab, PO, qhs, Disp# 30 tab, Refills: 3, Pharmacy: [facility] [id number] Start Date: 05/04/24 Stop Date: 09/01/24 Status: Ordered losartan 50 mg oral tablet Start: 04/11/24 12:51:00 PM EDT, 1 tab, PO, Daily, Disp# 90 tab, Refills: 0, Pharmacy: [facility] 1640 Start Date: 04/11/24 Status: Ordered pantoprazole 40 mg oral delayed release tablet Start: 04/22/24 4:34:00 PM EDT, 1 tab, PO, Daily, Disp# 90 tab, Refills: 0, Pharmacy: [facility] 1640 Start Date: 04/22/24 Status: Ordered ProAir HFA 90 mcg/inh inhalation aerosol Start: 05/13/24 8:26:00 AM EDT, 2 puff, inhaled, qid, Disp# 1 each, Note to Pharmacy: or equivalent medicine at a cheaper [facility], PRN: as needed for wheezing and cough, Pharmacy: [facility] 1639 Start Date: 05/13/24 Status: Ordered Proventil HFA 90 mcg/inh MDI Start: 05/17/24 7:59:00 AM EDT, 2 puff, inhaled, qid, Disp# 1 each, May switch to another form of same dose albuterol if this one is not covered by insurance, PRN: as needed for wheezing, Pharmacy: [place] [id number] Start Date: 05/17/24 Status: Ordered QUEtiapine 300 mg oral tablet Start: 04/29/24 8:32:00 AM EDT Start Date: 04/29/24 Status: Ordered Sentry Senior 500 mcg-300 mcg-250 mcg tablet TAKE 1 TABLET BY MOUTH ONCE DAILY Start Date: 06/05/22 Status: Ordered Singulair 10 mg oral tablet Start: 04/29/24 2:52:00 PM EDT, 1 tab, PO, qPM, Disp# 30 tab, Refills: 2, Pharmacy: [facility] 1639 Start Date: 04/29/24 Stop Date: 07/28/24 Status: Ordered tolnaftate 1% topical solution Start: 06/10/23 1:23:00 PM EDT, 1 appl, topical, bid, Disp# 30 mL, Refills: 1, To involved nails nightly, Pharmacy: [facility] 1639 Start Date: 06/10/23 Status: Ordered traZODone 50 mg oral tablet Start: 06/05/22 1:20:00 PM EDT, 1 tab, PO, qhs Start Date: 06/05/22 Status: Ordered Ventolin HFA 90 mcg/inh inhalation aerosol Start: 05/17/24 11:56:00 AM EDT, 2 puff, inhaled, qid, Disp# 1 each, as needed for cough, Pharmacy: [facility] 1640 Start Date: 05/17/24 Status: Ordered Vitamin B1 100 mg oral tablet TAKE 1 TABLET BY MOUTH ONCE DAILY Start Date: 06/05/22 Status: Ordered zolpidem 10 mg oral tablet Start: 04/29/24 8:32:00 AM EDT Start Date: 04/29/24 Status: Ordered Mental Status 05/26/24 Barriers to Learning one year None evide nt Mandatory Health Literacy Documentation Yes Health Literacy Communication Barriers N ever Primary Language Mongolian Problem List Condition Confirmation Course Effective Dates Status H ealth Status Informant Loss of memory Confirmed Active Glaucoma high risk Confirmed Active BPH (benign prostatic hyperplasia) Confirmed Active Sinusitis, chronic Confirmed Active Cough Confirmed Active Dementia with behavioral disturbance Confirmed Active Epidermoid cyst Confirmed Active Fatigue Confirmed Active Folliculitis Confirmed Active Chronic GERD Confirmed Active History of actinic keratoses Confirmed Active H/O alcohol abuse Confirmed Active HLD (hyperlipidemia) Confirmed Active HTN (hypertension) Confirmed Active Testosterone deficiency Confirmed Active Hypothyroid Confirmed Active IFG (impaired fasting glucose) Confirmed Active Urine frequency Confirmed Active Elevated LFTs Confirmed Active Loss of smell Confirmed Active MDD (major depressive disorder) Confirmed Active Anxiety and depression Confirmed Active Actinic keratoses Confirmed Active LJ (obstructive sleep apnea) Confirmed Active Onychomycosis Confirmed Active Left wrist pain Confirmed Active Pincer nail deformity Confirmed Active Colon polyps Confirmed Active Seborrheic keratoses Confirmed Active SCC (squamous cell carcinoma) Confirmed Active Leg swelling Confirmed Active TFCC (triangular fibrocartilage complex) tear Confirmed Active Diagnosis Diagnosis Type Effective Dates Health Status Cl inical Service Informant SLAC (scapholunate advanced collapse) wrist Discharge Diagnosis 05/26/24 Procedures Procedure Date Related Diagnosis Body Site Status Colonoscopy 1 04/14/23 Completed X-ray of left foot 2 08/24/20 Comp leted Plain X-ray of left shoulder 3 08/03/20 Completed Colonoscopy 4 09/27/19 Completed Colonoscopy 5 55 Completed History of cataract Compl eted History of knee surgery C ompleted None Completed Plain X-ray of left shoulder 6 Completed Tonsillectomy Completed 1Impression: The rectum, sigmoid colon, descending colon, splenic flexure, transverse colon, hepaticflexure, ascending colon, cecum and recto-sigmoid colon are normal. No specimens collected. Repeat: 5 years 2Impression: No acute bony abnormality 3Impression: No acute fracture 4Impression: Diverticulosis in the sigmoid colon and in the descending colon. One 6 mm polyp in the cecum, removed with a hot biopsy forceos. Resected and retrieved. One 14 mm polyp at the hepatic flexure, removed with a hot snare. Resected and retrieved. Erythematous mucosa in the ascending colon. Biopsied. 5Impression: The rectum, sigmoid colon, descending colon, splenic flexure, transverse colon, hepaticflexure, ascending colon, cecum and recto-sigmoid colon are normal. 6Impression: No acute fracture. Social History Social History Type Response Smoking Status Never smoked cigaret kirsten Sex Sex Representation Male (finding) Ortho Outpt Note * MD Rosa, Shelton Glez: PERFORM Event Display: Ortho Outpt Note Authored Date: [id number] Name:BRADEN MCNULTY Patient Number:[id number] :1955 Date of Service:05/26/2024 This patient is a 71-qrdp-tkwqkpb-hand-dominant male with several month history of left wrist pain. He recalls no specific trauma. Symptoms are relativelyintermittent. He has tried steroid injectionsand brace wear as well as activity modifications. Current range of motion is approximately 50% wrist extension compared to the opposite wrist. He has full wrist flexion. He has tenderness over the dorsalradial aspect of his wrist with soft tissuefullness. He has a positive Wyatt shift test. He has negative Tinel to percussion over the transverse carpal ligament. His hand is otherwise neurovascular intact. Plain film radiographs demonstrate scapholunate advanced collapse stageI-II. With widening of the scapholunate interval and forward flexion of the scaphoid. These findings were discussed with the patient. We discussedoperative and nonoperative management for scapholunate advanced collapse. At this point we will like to try formal hand therapy. We can discuss different types of splint wear,activity modification, potential for additional steroid injections. We did discuss potential surgical options should his symptoms advanced. At this point we are favoring scaphoidectomy and 4 corner fusion versus proximal row carpectomy. He will follow-up with me for further discussion if his symptoms warrant. Electronic Signature on File Electronically Reviewed/Signed by: Shelton Lee MD Author Signature Dt/Tm:05/26/2024 04:54 PM Division of Orthopaedics KFT Patient Care team information Care Team Personnel Name: MD Chico, Dalton Position: Physician - Family Med Member Role: Primary Care Provider Address: [address] Care Team Related Persons Name: ASHLY MCNULTY
[2024-06-02] MEDS: LEVOTHYROXINE SODIUM 50 MCG TABLET PO SCH (06:07)
[2024-06-02] MEDS: PANTOprazole 40 MG TAB PO SCH (06:07)
--- NOTE | 2024-06-02 07:10 | XRay Report ---
XR chest 1V portable HISTORY: 69 years-old Male trauma acute chest trauma COMPARISON: 04/29/2024 TECHNIQUE: AP view of the chest FINDINGS: Lung volumes are normal. Lungs are clear. There is no pneumothorax or pleural effusion. Cardiac size is normal. Mediastinal contours are normal. There is no evidence for pulmonary edema. IMPRESSION: No acute cardiopulmonary findings. ACT 112: Negative or not required by law. The above report was generated using voice recognition software. It may contain grammatical, syntax o r spelling errors. Electronically signed by: Kingsley Murphy M.D. 06/02/2024 7:08 AM
--- NOTE | 2024-06-02 07:23 | XRay Report ---
XR pelvis 1-2V routine CLINICAL HISTORY: Trauma. COMPARISON: None FINDINGS: Sacroiliac joints and symphysis pubis are intact. There are no fractures within the pelvis or hips. There are no osseous lesions. IMPRESSION: No fractures within the pelvis or hips. ACT 112: Negative or not required by law. Electronically signed by: Carlos Jansen M.D. 06/02/2024 7:21 AM
[2024-06-02] MEDS: FLUTICASONE PROPIONATE NA SPR 16 GM BTL NAE SCH (08:14)
[2024-06-02] MEDS: AZELASTINE HCL 0.1% NASAL 200 SPRAYS/27,400 MCG BTL NAE SCH (08:14)
[2024-06-02] MEDS: OMEGA-3 (PURIFIED FISH OIL) 1 GM CAP PO SCH (08:15)
[2024-06-02] MEDS: FOLIC ACID 1 MG in SYRINGE 9.8 ML IV SCH (08:15)
[2024-06-02] MEDS: THIAMINE HCL 100 MG in SYRINGE 9 ML IV SCH (08:16)
[2024-06-02 09:15] LABS: Estimated Average Glucose 120 mg/dl; Hemoglobin A1C 5.8 % (4.5-5.6)
--- NOTE | 2024-06-02 09:54 | Neurology Consultation ---
Date of Consultation June 02, 2024 Assessment & Plan (1) Encephalopathy: History of Present Illness Attending Physician: Musa Grey MD History of Present Illness pt this morning alert and cooperative. able to answer question well. had EEG, showing diffuse slowing episodically but no seizure activities. pt is known to me as outpt as i have seen him few months ago as new pt in neurology clinic. His brother who lives a block away from him came this morning and I talked his brother about this other prior hx and pt has long hx of being in/out of [facility] for paranoid and anxiety/depression and HI/SI. Pt is followed by Dr. Nichole (psychiatrist) who start him on ambien last month for his insomnia. pt also on seroquel 150 mg at night and trazodone 200mg at night. pt lives along and pt is apparently managing his med and his brother is not involved with his med. it is questionable wether or not pt is actually taking the med as directed or taking it too much. pt has known long hx of alcohol abuse and apparently dx with Alcohol dementia few years ago when he was hospitalized at [facility]. Pt has been driving but now his brother took away his dodson. Pt denies drinking but no way to confirm this and his brother reports he has in the past seen him drink few beer/wine. admission HPI: The patient is brought into the emergency department by his brother, due to the patient's increased confusion, head and facial trauma, the patient's lack of memory for any recent events, and neighbor reports that the patient's glasses, wallet and other possessions were outside on the ground, without patient having any recollection of what happened. When asked why he has bruises on his face, he reports that it was from lying down on his face for too long. His brother reports that he has had some developing memory issues over the past weeks to months, however, this today is a more acute departure and worsening. The brother reports that the patient's PCP has been trying to adjust his medications, however, the patient had been referred to neurology, Dr. Dawn, and actually has an appointment with them on 06/02. Primary Care Provider: Dalton Golden The patient is a 69-year-old male with a past medical history including mild cognitive impairment, LJ, male hypogonadism, pituitary adenoma, hypothyroidism, major neurocognitive disorder, hyperlipidemia, hypertension, chronic rhinitis, anxiety and insomnia. The patient presents as noted above. He is not able to contribute to his HPI or review of systems, due to an acute worsening of his chronic neurocognitive disorder. Allergies Allergy/AdvReac Type Severity Reaction Status Date / Time morphine Allergy Unknown Verified 05/20/24 14:45 Home Medications Medication Instructions Recorded Confirmed Type latanoprost 0.005 % eye drops 1 drp ophthalmic (eye) HS 01/19/22 06/01/24 History pantoprazole 40 mg tablet,delayed 40 mg PO DAILYBB 01/19/22 06/01/24 History release omega 3-rnk-spd-fish oil 60 mg-90 1 cap PO BID 10/06/22 06/01/24 History mg-500 mg capsule (Fish Oil) quetiapine 300 mg tablet (Seroquel) 150 mg PO HS 04/21/23 06/01/24 History syringe with needle 3 mL 25 x 5/8" #50 ea 04/21/23 06/01/24 Rx (BD Eclipse Luer-Alba) chlorthalidone 25 mg tablet 25 mg PO QAM 12/01/23 06/01/24 History azelastine 137 mcg (0.1 %) nasal 2 spray intranasal BID 12/14/23 06/01/24 History spray modafinil 100 mg tablet 100 mg PO DAILY #30 tabs 05/16/24 06/01/24 Rx zolpidem 10 mg tablet 10 mg PO HS 05/20/24 06/01/24 History atorvastatin 20 mg tablet 20 mg PO HS 06/01/24 06/01/24 History fluticasone propionate 50 2 spray intranasal DAILY 06/01/24 06/01/24 History mcg/actuation nasal spray,suspension ipratropium bromide 42 mcg (0.06 2 spray intranasal TID PRN 06/01/24 06/01/24 History %) nasal spray Allergic Symptoms levothyroxine 50 mcg tablet 50 mcg PO DAILYBB 06/01/24 06/01/24 History losartan 50 mg tablet 50 mg PO HS 06/01/24 06/01/24 History trazodone 100 mg tablet 200 mg PO HS 06/01/24 06/01/24 History Patient History Social History Smoking Status: Never smoker Hx Alcohol Use: Yes Hx Substance Use: No Preferred Language: Amharic Communication Ability: Impaired Sprinkler Helper Required: No Beliefs That Will Affect Care: None Current Living Situation: Alone Feels Safe at Home: Yes Safety Concerns: Feels Safe At This Time Assistive Devices: Glasses and Hearing Aid - Bilateral Exam (Neuro) Physical Exam: HEENT: normocephalic grossly Neuro: Mental: Alert but confused, not sure of month, knew 2023. not sure of the name of hospital. he knew his address and knew [facility]. , fluent speech with parapharasic errors and word finding difficulty, normal comprehension, no apraxia CN: PERRL, Full EOM, symmetric face, midline T/U/P, grossly full ROM neck Motor: No abnormal movements, normal tone, 5/5 t/o bilaterally Sens: intact to touch b/l grossly Coord: mild FNF dysmetria b/l upper limbs DTR: 2+ sym b/l Gait: intact grossly with some difficulty with tandem gait. Impression: 69 yo male with acute confusion likely due to several factors including metabolic disorder, med side effect (too much sedative meds), worsening of his Alcohol dementia with clinical appearance of having Wernicke's encephalopathy. His EEG showing diffuse slowing episodically suggestive of encephalopathy process. His psychiatric disorders likely contributing also. Also concern for if he is drinking again on/off and poor nutrition and med management. MRI brain unremarkable. Recommendations: -agree with thiamine supplement consider psych consult for his med management. consider reducing his seroquel to 50mg at night. correct electrolyte imbalance plenty of IV/oral hydration consider ordering carboydrate-deficient transferrin level for prior alcohol use. avoid using anticholinergic and antidopaminergic meds nutritional support care occupational therapy consult will follow again Chart reviewed I have spent more than 50% educating patient about potential diagnosis and neurological evaluation and coordinating care with patient's treatment team. Total time spent (including chart review and coordination of care): 60 min (this includes chart review). Results & Data Vital Signs (Past 12 Hours) Vital Signs Pulse Pulse Pulse Resp BP Pulse Ox Pulse Ox 06/02/24 07:22 74 06/02/24 07:00 76 17 137/73 94 06/02/24 06:00 66 19 127/78 97 06/02/24 04:22 62 16 109/59 L 93 06/02/24 02:43 63 06/02/24 02:35 56 L 20 126/75 98 06/02/24 02:18 94 06/01/24 22:00 63 20 136/75 97 O2 Del Method O2 Del Method 06/02/24 07:22 06/02/24 07:00 Room Air 06/02/24 06:00 Room Air 06/02/24 04:22 Room Air 06/02/24 02:43 06/02/24 02:35 Room Air 06/02/24 02:18 Room Air 06/01/24 22:00 Room Air PG Care Time/CCT Total # of Minutes Spent Total Time Spent with Patient: Total time spent is greater than 50% in coordination of care (as documented) at patient's floor/unit and/or counseling patient: Coding Level of Care Code 57158 IN/OBS CONSULT LVL 4,60M Diagnoses Wernicke encephalopathy E51.2 Encephalopathy type: Wernicke's (1) Encephalopathy Encephalopathy type: Wernicke's Qualified Code(s): E51.2 - Wernicke's encephalopathy
--- NOTE | 2024-06-02 11:20 | Electroencephalogram ---
EEG Procedure Note Date of Service June 02, 2024 Start / End Times Start Time: 843 End Time: 903 Referring Physician dianna wilson History confusion Home Medication List Medication Instructions Recorded Confirmed Type latanoprost 0.005 % eye drops 1 drp ophthalmic (eye) HS 01/19/22 06/01/24 History pantoprazole 40 mg tablet,delayed 40 mg PO DAILYBB 01/19/22 06/01/24 History release omega 7-dmx-ryo-fish oil 60 mg-90 1 cap PO BID 10/06/22 06/01/24 History mg-500 mg capsule (Fish Oil) quetiapine 300 mg tablet (Seroquel) 150 mg PO HS 04/21/23 06/01/24 History syringe with needle 3 mL 25 x 5/8" #50 ea 04/21/23 06/01/24 Rx (BD Eclipse Luer-Alba) chlorthalidone 25 mg tablet 25 mg PO QAM 12/01/23 06/01/24 History azelastine 137 mcg (0.1 %) nasal 2 spray intranasal BID 12/14/23 06/01/24 History spray modafinil 100 mg tablet 100 mg PO DAILY #30 tabs 05/16/24 06/01/24 Rx zolpidem 10 mg tablet 10 mg PO HS 05/20/24 06/01/24 History atorvastatin 20 mg tablet 20 mg PO HS 06/01/24 06/01/24 History fluticasone propionate 50 2 spray intranasal DAILY 06/01/24 06/01/24 History mcg/actuation nasal spray,suspension ipratropium bromide 42 mcg (0.06 2 spray intranasal TID PRN 06/01/24 06/01/24 History %) nasal spray Allergic Symptoms levothyroxine 50 mcg tablet 50 mcg PO DAILYBB 06/01/24 06/01/24 History losartan 50 mg tablet 50 mg PO HS 06/01/24 06/01/24 History trazodone 100 mg tablet 200 mg PO HS 06/01/24 06/01/24 History Inpatient Medication List Azelastine HCl (Azelastine Hcl 0.1% Nasal 200 Sprays/27,400 Mcg Btl) 2 sprays JOSE BID [facility] Stop: 07/02/24 08:59 Last Admin: 06/02/24 08:14 Dose: 2 sprays Documented By: MSG Fish Oil (Bison-3 (Purified Fish Oil) 1 Gm Cap) 1 gm PO BID LACEY Stop: 07/02/24 08:59 Last Admin: 06/02/24 08:15 Dose: 1 gm Documented By: Fluticasone Propionate (Fluticasone Propionate Na Spr 16 Gm Btl) 2 sprays JOSE DAILY [facility] Stop: 07/02/24 08:59 Last Admin: 06/02/24 08:14 Dose: 2 sprays Documented By: Potassium Chloride/Sodium Chloride (Normal Saline W/20 Meq Kcl) 20 meq in 1,000 mls @ 100 mls/hr IV .Q10H [facility] Stop: 06/02/24 19:44 Last Admin: 06/02/24 01:07 Dose: 100 mls/hr Documented By: NEWTON Thiamine HCl 100 mg/ Syringe 10 mls @ 2 [facility] Stop: 07/02/24 08:59 Last Admin: 06/02/24 08:16 Dose: 2 mls/min Documented By: Folic Acid 1 mg/ Syringe 10 mls @ 5 mls/min IV QAM [facility] Stop: 07/02/24 08:59 Last Admin: 06/02/24 08:15 Dose: 5 mls/min Documented By: Levothyroxine Sodium (Levothyroxine Sodium 50 Mcg Tablet) 50 mcg PO DAILYBB [facility] Stop: 07/02/24 06:29 Last Admin: 06/02/24 06:07 Dose: 50 mcg Documented By: ANAY Pantoprazole Sodium (Pantoprazole 40 Mg Tab) 40 mg PO DAILYBB [facility] Stop: 07/02/24 06:29 Last Admin: 06/02/24 06:07 Dose: 40 mg Documented By: ANAY Discontinued Medications Sodium Chloride (Nss) 1,000 mls @ 250 mls/hr IV .Q4H [facility] Stop: 07/01/24 18:59 Last Admin: 06/02/24 03:46 Dose: Not Given Documented By: Infusion: 06/02/24 01:36 Dose: Infused Documented By: Infusion: 06/02/24 01:31 Dose: Infused Documented By: Admin: 06/01/24 20:20 Dose: 250 mls/hr Documented By: NEWTON Thiamine HCl 100 mg/ Syringe 10 mls @ 2 mls/min IV NOW STA Stop: 06/01/24 21:32 Last Admin: 06/01/24 22:10 Dose: 2 mls/min Documented By: NEWTON Thiamine HCl 400 mg/ Sodium (Chloride) 54 mls @ 210 mls/hr IV NOW STA Stop: 06/02/24 00:19 Last Infusion: 06/02/24 01:33 Dose: Infused Documented By: Admin: 06/02/24 01:07 Dose: 210 mls/hr Documented By: NEWTON Folic Acid 1 mg/ Syringe 10 mls @ 5 mls/min IV NOW STA Stop: 06/02/24 00:05 Last Admin: 06/02/24 01:08 Dose: 5 mls/min Documented By: NEWTON Description This is a 21 electrode EEG with a single channel dedicated to limited EKG. The electrodes were placed in accordance with the International 10-20 system. Interpretation This is a 21 electrode EEG with a single channel dedicated to limited EKG. The electrodes were placed in accordance with the International 10-20 system. There is a posterior dominant rhythm of 6-8 Hz which is symmetrically distributed and attenuates with eye opening. There is a normal anterior to posterior organization. Photic stimulation: unremarkable Hyperventilation performed: ___ unremarkable; _x_ not performed. There is no focal slowing. No epileptiform abnormalities. Sleep stage: _x_ not achieved, ___drowsy state, ___ Stage II, ___ REM stage achieved. Interpretation Abnormal awake EEG due to episodic brief slowing consistent with encephalopathy diffuse cortical dysfunction. [facility] EEG Procedure Codes Indication for Procedure (1) Encephalopathy: Neurology Neurology: [id number] EEG include record awake & drowsy
--- NOTE | 2024-06-02 12:26 | XCELERA ---
[id number]
--- NOTE | 2024-06-02 14:27 | Electrocardiogram Report ---
Test Reason : Blood Pressure : */* mmHG Vent. Rate : 60 BPM Atrial Rate : 60 BPM P-R Int : 114 ms QRS Dur : 110 ms QT Int : 478 ms P-R-T Axes : 51 27 33 degrees QTcB Int : 478 ms Normal sinus rhythm Normal ECG When compared with ECG of 21-Jan-2022 10:06, QT has lengthened Confirmed by Thanh Garcia ([id number]) on 06/02/2024 2:27:28 PM Referred By: REFERRED SELF Confirmed By: Thanh Garcia
--- NOTE | 2024-06-02 16:33 | Hospitalist Progress Note ---
Date of Service June 02, 2024 Assessment & Plan (1) Altered mental status: Plan: Patient present with encephalopathy of undetermined significance, and imaging for cranial and vascular abnormalities are negative as well as imaging for concern for infectious disease are negative. Patient has had his medications of modafinil as zoLipidem held remains on trazodone and quetiapine at bedtime neurology consult Dr. Dawn recommends dosing reductions Pt with history of memory loss and mental illness, has been in [facility] unit as inpt in the past, will need Psychiatry eval and determination of copentency (2) Elevated troponin: Plan: Elevated troponin without significant trend we will assume this is demand ischemia at this time. No acute EKG changes on presentation Echocardiogram on presentation showed normal LV size and function no regional wall motion abnormalities no significant valvular abnormalities Troponins are 66-61-55-56. (3) History of alcohol abuse: Plan: Patient history of alcohol abuse with his placement risk for Warnicke's encephalopathy. He was given thiamine after banana bag in the emergency department. No acute signs of alcohol withdrawal at the present time (4) Obstructive sleep apnea: Plan: Patient follows with sleep clinic for which she takes his modafinil continue CPAP at night Typically 8 cm of water Plan Altered mental status/history of neurocognitive disorder/history of alcohol abuse- Patient has no recollection of how his wallet, glasses and other personal facts were outside found by his neighbors, who notified his brother. Reportedly patient has a POLST form on file and request to be DNR Hypokalemia- Potassium 3.0 Placed on IV fluids as noted above, recheck laboratories in a.m. Admission and Anticipated Discharge Date Admission Date: June 02, 2024 Subjective pt was seen in the ER, very forgetful but notes that he is, no focal complaints or issues no chest pain or shortness of breath Physical Exam Physical Exam: Pleasant and cooperative forgetful cardiac is regular lungs clear oriented x 1, non focal neurol exam Results & Data Results & Data Vital Signs (Past 12 Hours) Vital Signs Temp Pulse Pulse Pulse Resp BP Pulse Ox 06/02/24 14:56 97.7 F 88 20 162/89 H 98 06/02/24 12:41 61 97 06/02/24 10:48 71 17 128/81 94 06/02/24 07:22 74 06/02/24 07:00 76 17 137/73 94 06/02/24 06:00 66 19 127/78 97 O2 Del Method 06/02/24 14:56 Room Air 06/02/24 12:41 Room Air 06/02/24 10:48 Room Air 06/02/24 07:22 06/02/24 07:00 Room Air 06/02/24 06:00 Room Air Laboratory Results reviewed labs PG Care Time/CCT Total # of Minutes Spent Total Time Spent with Patient: Total time spent is greater than 50% in coordination of care (as documented) at patient's floor/unit and/or counseling patient: Coding Level of Care Code None Diagnoses Altered mental status R41.82 Elevated troponin R79.89 History of alcohol abuse F10.11 Obstructive sleep apnea G47.33
[2024-06-02] MEDS ORDERED: QUEtiapine FUMARATE 100 MG TABLET PO SCH (21:00)
[2024-06-02] MEDS: ATORVASTATIN 40 MG TAB PO SCH (21:22)
[2024-06-02] MEDS: traZODone HCL 100 MG TAB PO SCH (21:22)
[2024-06-02] MEDS: LOSARTAN POTASSIUM 50 MG TAB PO SCH (21:22)
[2024-06-02] MEDS: QUEtiapine FUMARATE 25 MG TABLET PO SCH (21:23)
[2024-06-02] MEDS: LATANOPROST 0.005% OP SOLN 2.5 ML BTL OP SCH (21:32)
--- NOTE | 2024-06-03 08:39 | Hospitalist Progress Note ---
Date of Service June 03, 2024 Assessment & Plan (1) Altered mental status: Plan: Patient present with encephalopathy of undetermined significance, and imaging for cranial and vascular abnormalities are negative as well as imaging for concern for infectious disease are negative. Patient has had his medications of modafinil as zoLipidem held remains on trazodone and quetiapine at bedtime neurology consult Dr. Dawn recommends dosing reductions Pt with history of memory loss and mental illness, has been in [facility] unit as inpt in the past, Psychiatry eval:At this time, in my opinion patient does not have decision making capacity to determine appropriate placement upon discharge given his acute confused state, poor orientation and inability to engage in discussion regarding placement. He would benefit from placement in a higher level of care. Concussion with unknown loss of consciousness (2) Elevated troponin: Plan: Elevated troponin without significant trend we will assume this is demand ischemia at this time. No acute EKG changes on presentation Echocardiogram on presentation showed normal LV size and function no regional wall motion abnormalities no significant valvular abnormalities Troponins are 66-61-55-56. (3) History of alcohol abuse: Plan: Patient history of alcohol abuse with his placement risk for Warnicke's encephalopathy. He was given thiamine after banana bag in the emergency department. No acute signs of alcohol withdrawal at the present time (4) Obstructive sleep apnea: Plan: Patient follows with sleep clinic for which she takes his modafinil continue CPAP at night Typically 8 cm of water Plan Altered mental status/history of neurocognitive disorder/history of alcohol abuse- Patient has no recollection of how his wallet, glasses and other personal facts were outside found by his neighbors, who notified his brother. Reportedly patient has a POLST form on file and request to be DNR Hypokalemia- replete Admission and Anticipated Discharge Date Admission Date: June 02, 2024 Subjective very forgetful but notes where he is, no focal complaints or issues accompanied by his bother no chest pain or shortness of breath Physical Exam 2 Physical Exam: Pleasant and cooperative, very forgetful and tangential cardiac is regular lungs clear oriented x 1, non focal neurol exam Results & Data Results & Data Vital Signs (Past 12 Hours) Vital Signs Temp Pulse Pulse Resp BP Pulse Ox O2 Del Method 06/03/24 08:10 97.5 F L 66 18 148/75 H 95 Room Air 09/13/24 08:07 79 06/03/24 07:55 Room Air 06/03/24 03:08 97.5 F L 55 L 18 153/72 H 96 Room Air 06/03/24 02:01 06/03/24 00:26 69 06/02/24 23:25 97.7 F 66 18 147/70 H 97 Room Air 06/02/24 23:00 73 24 95 06/02/24 21:53 Room Air O2 Del Method FiO2 06/03/24 08:10 06/03/24 08:07 06/03/24 07:55 06/03/24 03:08 06/03/24 02:01 Room Air 06/03/24 00:26 06/02/24 23:25 06/02/24 23:00 21 06/02/24 21:53 PG Care Time/CCT Total # of Minutes Spent Total Time Spent with Patient: Total time spent is greater than 50% in coordination of care (as documented) at patient's floor/unit and/or counseling patient: Coding Level of Care Code 66887 SUB INP/OBS CARE 2/35MIN Diagnoses Altered mental status R41.82 Elevated troponin R79.89 History of alcohol abuse F10.11 Obstructive sleep apnea G47.33
--- NOTE | 2024-06-03 09:56 | Neurology Progress Note ---
Date of Service June 03, 2024 Assessment & Plan (1) Wernickes encephalopathy: (2) Alcoholic dementia: Admission and Anticipated Discharge Date Admission Date: June 02, 2024 Subjective pt this morning alert but still confused and paranoid. pt with tangential thoughts and writing down on paper with odd statements. appears to be manic at times. Results & Data Vital Signs (Past 12 Hours) Vital Signs Temp Pulse Pulse Resp BP Pulse Ox O2 Del Method 06/03/24 08:10 36.4 C L 66 18 148/75 H 95 Room Air 06/03/24 08:07 79 06/03/24 07:55 Room Air 06/03/24 03:08 36.4 C L 55 L 18 153/72 H 96 Room Air 06/03/24 02:01 06/03/24 00:26 69 06/02/24 23:25 36.5 C 66 18 147/70 H 97 Room Air 06/02/24 23:00 73 24 95 06/02/24 21:53 Room Air O2 Del Method FiO2 06/03/24 08:10 06/03/24 08:07 06/03/24 07:55 06/03/24 03:08 06/03/24 02:01 Room Air 06/03/24 00:26 06/02/24 23:25 06/02/24 23:00 21 06/02/24 21:53 Exam (Neuro) Physical Exam: Neuro: Mental: Alert but confused, not sure of month, knew 2023. not sure of the name of hospital. he knew his address and knew President Chemo. , fluent speech with parapharasic errors and word finding difficulty, normal comprehension, pt keeping talking about tangential ideas and writing on a paper odd things and manic like behaviors. CN: PERRL, Full EOM, symmetric face, Motor: No abnormal movements, normal tone, 5/5 t/o bilaterally Impression: 69 yo male with acute confusion likely due to several factors including metabolic disorder, med side effect (too much sedative meds), worsening of his Alcohol dementia with clinical appearance of having Wernicke's encephalopathy. His EEG showing diffuse slowing episodically suggestive of encephalopathy process. His psychiatric disorders likely contributing also. Also concern for if he is drinking again on/off and poor nutrition and med management. MRI brain unremarkable. His behavior now showing more psychiatric manic like writing and mood. Recommendations: -continue thiamine supplement psych consult for potential other psychiatric diagnosis, e.g. schizoaffective disorder. plenty of IV/oral hydration avoid using anticholinergic and antidopaminergic meds continue supportive and nutritional care. he will need watermelon inspector placement and not safe to be by himself at home. no driving. Chart reviewed I have spent more than 50% educating patient about potential diagnosis and neurological evaluation and coordinating care with patient's treatment team. Total time spent (including chart review and coordination of care): 35 min (this includes chart review). PG Care Time/CCT Total # of Minutes Spent Total Time Spent with Patient: Total time spent is greater than 50% in coordination of care (as documented) at patient's floor/unit and/or counseling patient: Coding Level of Care Code 00174 SUB INP/OBS CARE 2/35MIN Diagnoses Wernickes encephalopathy E51.2 Moderate dementia associated with alcoholism, with other behavioral disturbance F10.27 Dementia severity: moderate Dementia behavioral or psychological symptom: with other behavioral disturbance (2) Alcoholic dementia Dementia severity: moderate Dementia behavioral or psychological symptom: with other behavioral disturbance Qualified Code(s): F10.27 - Alcohol dependence with alcohol-induced persisting dementia
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
[2024-06-03 16:42] LABS: BUN Creatinine Ratio 20.2 (10-20); Calcium 9.4 mg/dl (8.6-10.3); Creatinine Clr Calc Pharmacy 79.1 ml/min; Est GFR (African American) 103.5 ml/min; Est GFR (Non-African American) 89.3 ml/min; Magnesium 1.9 mg/dl (1.7-2.4); Potassium 3.5 mmol/L (3.5-5.1)
[2024-06-03] MEDS: POTASSIUM CHLORIDE / WTR 10 MEQ/100 ML PLCT IV SCH (23:06)
[2024-06-03] MEDS: MAGNESIUM SULFATE / D5W 1 GM/100 ML BAG IV ONE (23:06)
[2024-06-04] MEDS: FOLIC ACID 1 MG TAB PO SCH (07:16)
[2024-06-04] MEDS: THIAMINE HCL 100 MG TAB PO SCH (07:16)
[2024-06-04 08:25] LABS: BUN Creatinine Ratio 15.5 (10-20); Calcium 9.7 mg/dl (8.6-10.3); Creatinine Clr Calc Pharmacy 68.5 ml/min; Est GFR (African American) 91.9 ml/min; Est GFR (Non-African American) 79.3 ml/min; Magnesium 2.2 mg/dl (1.7-2.4); Potassium 3.8 mmol/L (3.5-5.1)
[2024-06-04 08:53] LABS: Anti Nuclear Antibody Screen NEGATIVE (NEGATIVE)
--- NOTE | 2024-06-04 09:33 | Neurology Progress Note ---
Date of Service June 04, 2024 Assessment & Plan (1) Wernickes encephalopathy: Admission and Anticipated Discharge Date Admission Date: June 02, 2024 Subjective pt this morning very much more calm and oriented and coherent. pt sitting in chair and able to tell me his list of questions. he knew my name soon as i walked in. Results & Data Vital Signs (Past 12 Hours) Vital Signs Temp Pulse Pulse Resp BP Pulse Ox O2 Del Method 06/04/24 08:10 36.6 C 65 20 135/82 96 Room Air 06/04/24 07:22 06/04/24 01:29 Room Air 06/04/24 01:08 85 06/03/24 23:46 36.5 C 84 17 131/78 94 Room Air O2 Del Method 06/04/24 08:10 06/04/24 07:22 Room Air 06/04/24 01:29 06/04/24 01:08 06/03/24 23:46 Exam (Neuro) Physical Exam: Neuro: Mental: Alert, knew the city and month. knew 2023. he knew his address and knew President Chemo. , fluent speech . normal comprehension, pt had list of question to ask to his doctors and asking appropriate medical questions. CN: PERRL, Full EOM, symmetric face, Motor: No abnormal movements, normal tone, 5/5 t/o bilaterally coor: intact Impression: 69 yo male with acute confusion likely due to several factors including metabolic disorder, med side effect (too much sedative meds), worsening of his Alcohol dementia with clinical appearance of having Wernicke's encephalopathy. His EEG showing diffuse slowing episodically suggestive of encephalopathy process. His psychiatric disorders likely contributing also. Also concern for if he is drinking again on/off and poor nutrition and med management. MRI brain unremarkable. He is showing much improved cognition. It appears his Wernicke's encephalopathy is improving and his alcohol dementia much stable since he has been sleeping well. Recommendations: psychiatry seen pt, no other new psychiatric diagnosis given at this point. plenty of hydration avoid using anticholinergic and antidopaminergic meds continue supportive and nutritional care. he will need extermination inspector placement and not safe to be by himself at home. no driving. not much else to add this point. he can have routine f/u with me when discharged. call again if new question. Chart reviewed I have spent more than 50% educating patient about potential diagnosis and neurological evaluation and coordinating care with patient's treatment team. Total time spent (including chart review and coordination of care): 35 min (this includes chart review). PG Care Time/CCT Total # of Minutes Spent Total Time Spent with Patient: Total time spent is greater than 50% in coordination of care (as documented) at patient's floor/unit and/or counseling patient: Coding Level of Care Code 53834 SUB INP/OBS CARE 2/35MIN Diagnoses Wernickes encephalopathy E51.2
--- NOTE | 2024-06-04 14:37 | Hospitalist Progress Note ---
Date of Service June 04, 2024 Assessment & Plan (1) Altered mental status: Plan: Patient present with encephalopathy of undetermined significance, and imaging for cranial and vascular abnormalities are negative as well as imaging for concern for infectious disease are negative. Patient has had his medications of modafinil as zoLipidem held remains on trazodone and quetiapine at bedtime neurology consult Dr. Dawn recommends dosing reductions Pt with history of memory loss and mental illness, has been in [facility] unit as inpt in the past, Psychiatry eval:At this time, in my opinion patient does not have decision making capacity to determine appropriate placement upon discharge given his acute confused state, poor orientation and inability to engage in discussion regarding placement. He would benefit from placement in a higher level of care. Concussion with unknown loss of consciousness (2) Elevated troponin: Plan: Elevated troponin without significant trend we will assume this is demand ischemia at this time. No acute EKG changes on presentation Echocardiogram on presentation showed normal LV size and function no regional wall motion abnormalities no significant valvular abnormalities Troponins are 66-61-55-56. (3) History of alcohol abuse: Plan: Patient history of alcohol abuse with his placement risk for Warnicke's encephalopathy. He was given thiamine after banana bag in the emergency department. No acute signs of alcohol withdrawal at the present time (4) Obstructive sleep apnea: Plan: Patient follows with sleep clinic for which she takes his modafinil continue CPAP at night Typically 8 cm of water Plan Altered mental status/history of neurocognitive disorder/history of alcohol abuse- Patient has no recollection of how his wallet, glasses and other personal facts were outside found by his neighbors, who notified his brother. Reportedly patient has a POLST form on file and request to be DNR Hypokalemia- replete Admission and Anticipated Discharge Date Admission Date: June 02, 2024 Subjective pt this morning very much more calm and oriented, continues with a list of questions. at times with pressured speech, at times needing redirecrted, cannot connect the dots so to speak when asking more complex abstract questions such as what did you do in [place] before you retired, he goes to speak of other jobs but never directly answers that question Physical Exam Physical Exam: Pleasant and cooperative, very forgetful and tangential cardiac is regular lungs clear oriented x 1, non focal neurol exam Results & Data Results & Data Vital Signs (Past 12 Hours) Vital Signs Temp Pulse Resp BP Pulse Ox O2 Del Method O2 Del Method 06/04/24 08:10 97.9 F 65 20 135/82 96 Room Air 06/04/24 07:22 Room Air Laboratory Results reviewed chemistry 7 reviewed magnesium PG Care Time/CCT Total # of Minutes Spent Total Time Spent with Patient: Total time spent is greater than 50% in coordination of care (as documented) at patient's floor/unit and/or counseling patient: Coding Level of Care Code 31207 SUB INP/OBS CARE 2/35MIN Diagnoses Altered mental status R41.82 Elevated troponin R79.89 History of alcohol abuse F10.11 Obstructive sleep apnea G47.33
[2024-06-05 08:57] LABS: Babesia microti DNA Not Detected (Not Detected)
[2024-06-05] MEDS: ACETAMINOPHEN 325 MG TAB PO PRN (09:02)
--- NOTE | 2024-06-05 13:22 | Psychiatric Progress Note ---
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 Psychiatry consulted for evaluation and decision making capacity about placement. Diagnostically appears delirium is improving, no evidence for acute nimo, suspect previous symptoms were aspect of hyperactive delirium. Denies any other psychiatric symptoms at this time, suspect there may be continue to be some fluctuations in orientation and/or behaviors as delirium resolves. Given unclear cause of delirium recommend not restarting zolpidem nor modafinil on discharge given concern that these could worsen confusion and increase susceptibility to recurrent hyperactive delirium. Overall, I spent a total of 45 minutes with this case including review of chart records, review of labwork, direct evaluation of the patient at bedside, counseling the patient, discussion of the patient with the Nurse and with the hospitalist provider, discussion with the psychiatric liason during clinical rounds and documentation in the electronic health record. 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 Psychiatry consulted for evaluation and decision making capacity about placement. Chief Complaint "I'm trying to get a shower". Subjective Subjective Patient was seen & assessed and interval progress reviewed. Today Star is A&O x4, reports his focus this morning is on taking a shower, observed appropriately asking for towels from the RN. Tells me he feels much better after his "mental crisis" that lead to his hospitalization. Describes his mental crisis as "I had no clue what I was doing, I wasn't aware of my surroundings". States he only had this happen once before when he lived in [place]. Denies any alcohol use since the "eclipse" in December and denies any other recent substance use. Reports some finger pain this morning which he attributes to his blood pressure being too low, chronic issues with insomnia and lack of taste since having COVID-19 but otherwise denies any other concerns. Physical Exam Psychiatric Orientation: alert, oriented x 3 and cooperative Apperance: appropriately dressed and appropriately groomed Eye Contact: good eye contact Motor Behavior: steady gait and station Speech: normal rate/rhythm/volume of speech Affect: euthymic affect Mood: no depressed mood, no anxious mood and no irritable mood Thought Process: goal directed thought process Thought Content: reality based without delusions Suicidal Thoughts: denies suicidal thoughts Homicidal Thoughts: denies homicidal thoughts Hallucinations: no auditory hallucinations and no visual hallucinations Insight: + limited insight Judgment: + limited judgement Vital Signs (Past 24 Hours) Last Vital Signs Temp 36.7 C 06/05/24 07:44 Pulse 86 06/05/24 07:44 Resp 16 06/05/24 07:44 BP 99/62 L 06/05/24 07:44 Pulse Ox 99 06/05/24 07:44 O2 Del Method Room Air 06/05/24 07:44 FiO2 21 06/02/24 23:00 Results & Data ([facility]) Laboratory Results Laboratory Results - last 24 hr 06/02/24 00:25 Babesia microti DNA PCR Not Detected Current Inpatient Medications Current Inpatient Medications: Current Inpatient Medications Acetaminophen (Acetaminophen 325 Mg Tab) 650 mg PO Q4H PRN PRN Reason: Pain or Fever Stop: 07/02/24 02:17 Last Admin: 06/05/24 09:02 Dose: 650 mg Atorvastatin Calcium (Atorvastatin 40 Mg Tab) 40 mg PO HS LACEY Stop: 07/02/24 20:59 Last Admin: 06/04/24 20:33 Dose: 40 mg Azelastine HCl (Azelastine Hcl 0.1% Nasal 200 Sprays/27,400 Mcg Btl) 2 sprays JOSE BID LACEY Stop: 07/02/24 08:59 Last Admin: 06/05/24 09:05 Dose: 2 sprays Fish Oil ([place]-3 (Purified Fish Oil) 1 Gm Cap) 1 gm PO BID LACEY Stop: 07/02/24 08:59 Last Admin: 06/05/24 09:04 Dose: 1 gm Fluticasone Propionate (Fluticasone Propionate Na Spr 16 Gm Btl) 2 sprays JOSE DAILY [facility] Stop: 07/02/24 08:59 Last Admin: 06/05/24 09:05 Dose: 2 sprays Folic Acid ([facility] 1 Mg Tab) [facility]; Protocol Stop: 07/04/24 08:59 Last Admin: 06/05/24 09:04 Dose: 1 mg Latanoprost (Latanoprost 0.005% Op Soln 2.5 Ml Btl) [address] [facility] Stop: 07/02/24 20:59 Last Admin: 06/04/24 20:30 Dose: 1 drops Levothyroxine Sodium (Levothyroxine Sodium 50 Mcg Tablet) 50 mcg [facility] Stop: 07/02/24 06:29 Last Admin: 06/05/24 05:29 Dose: 50 mcg Lorazepam (Lorazepam 2 Mg/1 Ml Vial) 1 mg IV UD PRN; Protocol PRN Reason: EtOH Withdrawal AWSS Score 6,7 Stop: 07/02/24 02:17 Lorazepam (Lorazepam 2 Mg/1 Ml Vial) 2 mg IV UD PRN; Protocol PRN Reason: EtOH Withdrawal AWSS Score 8,9 Stop: 07/02/24 02:17 Lorazepam (Lorazepam 2 Mg/1 Ml Vial) 3 mg IV ONCE PRN; Protocol PRN Reason: EtOH Withdrawal AWSS Score 10+ Losartan Potassium (Losartan Potassium 50 Mg Tab) [address] [facility] Stop: 07/02/24 20:59 Last Admin: 06/04/24 20:33 Dose: 50 mg Naphazoline HCl/Pheniramine Maleate (Naphazolin/Pheniramin Oph Soln 15 Ml Btl) 2 drops OP Q4H PRN PRN Reason: eye irritation Stop: 07/05/24 10:26 Pantoprazole Sodium (Pantoprazole 40 Mg Tab) 40 mg [facility] Stop: 07/02/24 06:29 Last Admin: 06/05/24 05:29 Dose: 40 mg Quetiapine Fumarate (Quetiapine Fumarate 25 Mg Tablet) [address] [facility] Stop: 07/02/24 20:59 Last Admin: 06/04/24 20:32 Dose: 50 mg Thiamine HCl (Thiamine Hcl 100 Mg Tab) [facility] [place]; Protocol Stop: 07/04/24 08:59 Last Admin: 06/05/24 09:04 Dose: 100 mg Trazodone HCl (Trazodone Hcl 100 Mg Tab) 200 mg PO HS LACEY Stop: 07/02/24 20:59 Last Admin: 06/04/24 20:31 Dose: 200 mg (2) Alcoholic dementia Dementia behavioral or psychological symptom: with other behavioral disturbance Dementia severity: moderate Qualified Code(s): F10.27 - Alcohol dependence with alcohol-induced persisting dementia
--- NOTE | 2024-06-05 16:25 | Hospitalist Progress Note ---
Date of Service June 05, 2024 Assessment & Plan (1) Altered mental status: Plan: Patient present with encephalopathy of undetermined significance, and imaging for cranial and vascular abnormalities are negative as well as imaging for concern for infectious disease are negative. Patient has had his medications of modafinil as zoLipidem held -psychiatry feels should not restart remains on trazodone and quetiapine at bedtime neurology consult Dr. Dawn recommends dosing reductions Pt with history of memory loss and mental illness, has been in [facility] unit as inpt in the past, Psychiatry eval:At this time, in my opinion patient does not have decision making capacity to determine appropriate placement upon discharge given his acute confused state, poor orientation and inability to engage in discussion regarding placement. He would benefit from placement in a higher level of care. Concussion with unknown loss of consciousness (2) Elevated troponin: Plan: Elevated troponin without significant trend we will assume this is demand ischemia at this time. No acute EKG changes on presentation Echocardiogram on presentation showed normal LV size and function no regional wall motion abnormalities no significant valvular abnormalities Troponins are 66-61-55-56. (3) History of alcohol abuse: Plan: Patient history of alcohol abuse with his placement risk for Warnicke's encephalopathy. He was given thiamine after banana bag in the emergency department. No acute signs of alcohol withdrawal at the present time (4) Obstructive sleep apnea: Plan: Patient follows with sleep clinic for which she takes his modafinil continue CPAP at night Typically 8 cm of water Plan Altered mental status/history of neurocognitive disorder/history of alcohol abuse- Patient has no recollection of how his wallet, glasses and other personal facts were outside found by his neighbors, who notified his brother. Reportedly patient has a POLST form on file and request to be DNR Hypokalemia- replete brother wants to try to have in home care givers and will look for case management advice Admission and Anticipated Discharge Date Admission Date: June 02, 2024 Subjective pt this morning very much more calm and oriented, continues with a list of questions. at times with pressured speech, at times needing redirecrted, cannot connect the dots so to speak when asking more complex abstract questions Brother corroborates that he has had difficult issues with keeping his medicines coordinated at home Physical Exam Physical Exam: Pleasant and cooperative, very forgetful and tangential cardiac is regular lungs clear oriented x 1, non focal neurol exam Results & Data Results & Data Vital Signs (Past 12 Hours) Vital Signs Temp Pulse Resp BP Pulse Ox O2 Del Method 06/05/24 15:02 97.7 F 75 16 132/88 100 Room Air 06/05/24 07:44 98.1 F 86 16 99/62 L 99 Room Air PG Care Time/CCT Total # of Minutes Spent Total Time Spent with Patient: Total time spent is greater than 50% in coordination of care (as documented) at patient's floor/unit and/or counseling patient: Coding Level of Care Code 44789 SUB INP/OBS CARE 2/35MIN Diagnoses Altered mental status R41.82 Elevated troponin R79.89 History of alcohol abuse F10.11 Obstructive sleep apnea G47.33
[2024-06-06 06:21] LABS: Hematocrit (blood only) 41.2 % (42.0-52.0); Hemoglobin 14.2 g/dl (14.0-18.0); Mean Corpuscular Hemoglobin 30.9 pg (25.0-34.0); Mean Corpuscular Hgb Conc 34.5 g/dL (32.0-36.0); Mean Corpuscular Volume 89.8 fL (80.0-100.0); Mean Platelet Volume 9.7 fL (9.4-12.4); Platelet Count 261 K/uL (130-400); RDW Coefficient of Variation 13.1 % (11.5-14.5); RDW Standard Deviation 42.8 fL (36.4-46.3); Red Blood Count 4.59 M/uL (4.70-6.10); White Blood Count 8.23 K/ul (4.8-10.8)
[2024-06-06 06:34] LABS: BUN Creatinine Ratio 23.6 (10-20); Calcium 9.8 mg/dl (8.6-10.3); Creatinine Clr Calc Pharmacy 62.7 ml/min; Est GFR (African American) 82.6 ml/min; Est GFR (Non-African American) 71.3 ml/min
[2024-06-06] MEDS: TESTOSTERONE CYPIONATE IM 200 MG/ML VIAL IM ONE (11:40)
--- NOTE | 2024-06-06 15:28 | Hospitalist Progress Note ---
Date of Service June 06, 2024 Assessment & Plan (1) Altered mental status: Plan: Patient present with encephalopathy of undetermined significance, and imaging for cranial and vascular abnormalities are negative as well as imaging for concern for infectious disease are negative. Patient has had his medications of modafinil as zoLipidem held -psychiatry feels should not restart remains on trazodone and quetiapine at bedtime neurology consult Dr. Dawn recommends dosing reductions Pt with history of memory loss and mental illness, has been in [facility] unit as inpt in the past, Psychiatry eval:At this time, in my opinion patient does not have decision making capacity to determine appropriate placement upon discharge given his acute confused state, poor orientation and inability to engage in discussion regarding placement. He would benefit from placement in a higher level of care. Concussion with unknown loss of consciousness (2) Elevated troponin: Plan: Elevated troponin without significant trend we will assume this is demand ischemia at this time. No acute EKG changes on presentation Echocardiogram on presentation showed normal LV size and function no regional wall motion abnormalities no significant valvular abnormalities Troponins are 66-61-55-56. (3) History of alcohol abuse: Plan: Patient history of alcohol abuse with his placement risk for Warnicke's encephalopathy. He was given thiamine after banana bag in the emergency department. No acute signs of alcohol withdrawal at the present time (4) Obstructive sleep apnea: Plan: Patient follows with sleep clinic for which she takes his modafinil continue CPAP at night Typically 8 cm of water Plan Altered mental status/history of neurocognitive disorder/history of alcohol abuse- Patient has no recollection of how his wallet, glasses and other personal facts were outside found by his neighbors, who notified his brother. Reportedly patient has a POLST form on file and request to be DNR Hypokalemia- replete ask for testosterone injections, usually has 80 mg a day brother wants to try to have in home care givers and will look for case management advice Admission and Anticipated Discharge Date Admission Date: June 02, 2024 Subjective pt this morning very much more calm and oriented, continues with a list of questions. at times with pressured speech, at times needing redirecrted, cannot connect the dots so to speak when asking more complex abstract questions Brother corroborates that he has had difficult issues with keeping his medicines coordinated at home Physical Exam Physical Exam: Pleasant and cooperative, very forgetful and tangential cardiac is regular lungs clear oriented x 1, non focal neurol exam Results & Data Results & Data Vital Signs (Past 12 Hours) Vital Signs Temp Pulse Resp BP Pulse Ox O2 Del Method 06/06/24 15:13 97.7 F 72 16 137/74 100 Room Air 06/06/24 08:38 97.3 F L 72 16 107/61 100 Room Air PG Care Time/CCT Total # of Minutes Spent Total Time Spent with Patient: Total time spent is greater than 50% in coordination of care (as documented) at patient's floor/unit and/or counseling patient: Coding Level of Care Code 93759 SUB INP/OBS CARE 2/35MIN Diagnoses Altered mental status R41.82 Elevated troponin R79.89 History of alcohol abuse F10.11 Obstructive sleep apnea G47.33
--- NOTE | 2024-06-07 15:21 | Hospitalist Progress Note ---
Date of Service June 07, 2024 Assessment & Plan (1) Altered mental status: Plan: Patient present with encephalopathy of undetermined significance with suspicion for Warnicke's encephalopathy and alcoholic dementia, and imaging for cranial and vascular abnormalities are negative as well as imaging for concern for infectious disease are negative. Patient has had his medications of modafinil as zoLipidem held -psychiatry feels should not restart Psychiatry has recommended continuing trazodone 200 mg p.o. nightly, quetiapine 50 mg nightly and to discontinue modafinil and Zolpidem Neurology Dr. Dawn saw the patient: Recommended avoiding using anticholinergic and antidopaminergic medications, continue supportive nutritional care, no driving and as per neurology he will need long-term placement as neurology does not feel he is safe to be by himself at home. As per neurology, EEG showing diffuse slowing episodically suggestive of encephalopathy process. (2) Elevated troponin: Plan: Elevated troponin without significant trend we will assume this is demand ischemia at this time. No acute EKG changes on presentation Echocardiogram on presentation showed normal LV size and function no regional wall motion abnormalities no significant valvular abnormalities Troponins are 66-61-55-56. (3) History of alcohol abuse: Plan: Patient history of alcohol abuse with his placement risk for Wernicke's encephalopathy. He was given thiamine after banana bag in the emergency department. No acute signs of alcohol withdrawal at the present time (4) Obstructive sleep apnea: Plan: Continue CPAP at bedtime Plan I spoke with patient's brother Hamilton ([phone]): Initially brother was planning on taking patient home with help from neighbors for 24-hour care but now brother feels that patient will not be safe at home and would like placement for him. And he is going to reach out to case management to discuss this Admission and Anticipated Discharge Date Admission Date: June 02, 2024 Subjective Patient seen and examined Ambulating without any issues Denies any headache, dizziness, chest pain, shortness of breath, nausea, vomiting, diarrhea, abdominal pain Review of Systems Review of Systems: As per HPI Physical Exam Physical Exam: General: No acute distress, speaking in full sentences Psych: Awake and oriented to place and person HEENT: Anicteric sclera, moist oral mucosa CVS: Regular rate and rhythm Lungs: Bilateral air entry, no wheezing noted Abdomen: Soft, nontender, no rebound, no guarding Ext: No lower extremity edema, no calf tenderness Neuro: No focal motor deficits noted Results & Data Results & Data Vital Signs (Past 12 Hours) Vital Signs Temp Pulse Resp BP Pulse Ox O2 Del Method 06/07/24 14:53 36.6 C 78 18 134/84 97 Room Air 06/07/24 07:01 36.5 C 81 18 108/70 97 Room Air PG Care Time/CCT Total # of Minutes Spent Total Time Spent with Patient: Total time spent is greater than 50% in coordination of care (as documented) at patient's floor/unit and/or counseling patient: Coding Level of Care Code 46925 SUB INP/OBS CARE 2/35MIN Diagnoses Altered mental status R41.82 Elevated troponin R79.89 History of alcohol abuse F10.11 Obstructive sleep apnea G47.33
[2024-06-07] MEDS: LOSARTAN POTASSIUM 25 MG TAB PO SCH (21:22)
[2024-06-08] MEDS: OLANZapine ZYDIS 5 MG ORALLY DIS. TAB PO STA (09:39)
--- NOTE | 2024-06-08 09:42 | Hospitalist Progress Note ---
Date of Service June 08, 2024 Assessment & Plan (1) Encephalopathy: (2) Alcoholic dementia: (3) History of alcohol abuse: (4) Hypertension: (5) Elevated troponin: (6) Hypothyroidism: (7) Obstructive sleep apnea: Plan 69-year-old male with past medical history of hypertension, hypothyroidism, cognitive impairment, LJ close brought to the ED by his brother for worsening confusion, head trauma and facial trauma. Patient's neighbor found patient's glasses, wallet and other possessions on the ground and patient had no recollection or memory of these events. #Acute encephalopathy #Suspected Wernicke's encephalopathy #Alcohol related dementia #History of alcohol use disorder Neurology and psychiatry saw the patient Neurology thinks patient has Wernicke's encephalopathy in setting of alcohol dementia TSH is 0.394 B12 is 521 As per neurology, patient does not have decision-making capacity I spoke with psychiatry today as patient was agitated: They will also evaluate patient for capacity and preliminary have asked to increase Seroquel to 150 mg p.o. nightly As per psychiatry recommendations, use Seroquel 25 mg p.o. twice daily as needed for anxiety/agitation and if patient has a behavioral emergency to use olanzapine 2.5 mg ODT or IM Neurology (Dr. Juan Dawn) has recommended avoiding using anticholinergic and antidopaminergic medications and to continue supportive nutritional care. As per neurology, he will need long-term placement and is not safe to be by himself at home and have advised against driving Neurology has recommended patient follow-up with them as outpatient with Dr. Juan Dawn Await psychiatry recommendations #Essential hypertension #Elevated troponin #Hyperlipidemia Elevated troponin suspected to be from demand ischemia with no chest pain or EKG changes on presentation Echocardiogram showed normal LV size and function and no regional wall motion abnormalities, no significant valvular abnormalities Continue losartan 50 mg p.o. nightly Continue atorvastatin Monitor vital signs #Hypothyroidism TSH is 0.394 Continue levothyroxine 50 mcg p.o. 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 As per nursing staff he has been tearful last night and again this morning Review of Systems Review of Systems: As per HPI Physical Exam 2 Physical Exam: General: Upset and agitated Psych: Awake and visibly agitated HEENT: Anicteric sclera, moist oral mucosa CVS: Regular rate and rhythm Lungs: Bilateral air entry, no wheezing noted Abdomen: Soft, nontender, no rebound, no guarding Ext: No lower extremity edema, no calf tenderness Results & Data Results & Data Vital Signs (Past 12 Hours) Vital Signs Temp Pulse Resp BP Pulse Ox O2 Del Method 06/08/24 08:05 36.8 C 106 H 20 158/79 H 99 Room Air PG Care Time/CCT Total # of Minutes Spent Total Time Spent with Patient: Total time spent is greater than 50% in coordination of care (as documented) at patient's floor/unit and/or counseling patient: Coding Level of Care Code 14786 SUB INP/OBS CARE 2MIN Diagnoses Wernicke encephalopathy E51.2 Encephalopathy type: Wernicke's Moderate dementia associated with alcoholism, with other behavioral disturbance F10.27 Dementia severity: moderate Dementia behavioral or psychological symptom: with other behavioral dist urbance History of alcohol abuse F10.11 Hypertension I10 Elevated troponin R79.89 Other specified hypothyroidism E03.8 Hypothyroidism type: other Obstructive sleep apnea G47.33 (1) Encephalopathy Encephalopathy type: Wernicke's Qualified Code(s): E51.2 - Wernicke's encephalopathy (2) Alcoholic dementia Dementia severity: moderate Dementia behavioral or psychological symptom: with other behavioral disturbance Qualified Code(s): F10.27 - Alcohol dependence with alcohol-induced persisting dementia (6) Hypothyroidism Hypothyroidism type: other Qualified Code(s): E03.8 - Other specified hypothyroidism
--- NOTE | 2024-06-08 14:15 | Psychiatric Progress Note ---
Date of Service June 08, 2024 Impression / Recommendations Impression 69 y/o man with h/o suspected alcohol induced dementia, alcohol dependence, LJ, HTN, Hypothyroidism presents with AMS in the context of recent fall and facial contusion. Psychiatry consulted for evaluation and decision making capacity about placement. Diagnostically clinical course notable for acute worsening today, could represent waxing and waning course of delirium vs lewy body type dementia vs alcohol-induced dementia vs highly atypical bipolar affective disorder (unlikely given symptom improvement over the weekend and dramatic and sudden change). Given poor sleep and increased irritability today, recommend increase of scheduled Seroquel and additional po prn options for when Star expresses increased anxiety and distress. Given unclear cause of symptoms and possible delirium recommend not restarting zolpidem nor modafinil. Will reattempt decision making capacity evaluation. Neurology feels he requires placement in a secure memory facility. Overall, I spent a total of 35 minutes with this case including review of chart records, review of labwork, discussion of the patient with the Nurse and with the hospitalist provider, review of collateral information from the family, discussion with the psychiatric liason during clinical rounds and documentation in the electronic health record. (1) Delirium: (2) Alcoholic dementia: (3) History of alcohol abuse: (4) Elevated troponin: (5) Obstructive sleep apnea: Plan -Continue Trazodone 200mg HS -Consider increase Quetiapine to 150mg HS -Can utilize Seroquel 25 mg BID po prn for anxiety/agitation -Discontinue prior to admission Zolpidem (has been held since admission) -Discontinue prior to admission Modafinil (has been held since admission) -Resume CPAP therapy -For acute behavioral emergency would use: Olanzapine 2.5mg ODT OR IM BID PRN for agitation (DO NOT exceed 10mg per 24 hours, check EKG if IM dose required, NEVER co-administer with IM or IV benzodiazepine). 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 Psychiatry consulted for evaluation and decision making capacity about placement. Subjective Subjective Patient was seen & assessed and interval progress reviewed. Overnight he was aw tk and ordering things on his computer and with extreme tearfulness at times and later becoming increasingly paranoid. Per RN this morning he was becoming irritable and making demands to speak with various providers and people and yelling at times. He recieved prn olanzapine ODT with limited benefit. Attempted to see Star but he was in the shower. His brother was present in the hallway and provided some collateral noting that initially they had planned to have Star return to his home with additional in- home support but on Thursday his confusion and behaviors worsened again and now they feel unable to manage him independently at home. He was sending threatening messages to acquaintances using his computer and focused on getting to see his dog. His brother who has POA, is looking into half-way facility options/secure memory units with case management. Physical Exam Vital Signs (Past 24 Hours) Last Vital Signs Temp 36.8 C 06/08/24 08:05 Pulse 106 H 06/08/24 08:05 Resp 20 06/08/24 08:05 BP 158/79 H 06/08/24 08:05 Pulse Ox 99 06/08/24 08:05 O2 Del Method Room Air 06/08/24 08:05 FiO2 21 06/02/24 23:00 Results & Data ([facility]) Current Inpatient Medications Current Inpatient Medications: Current Inpatient Medications Acetaminophen (Acetaminophen 325 Mg Tab) 650 mg PO Q4H PRN PRN Reason: Pain or Fever Stop: 07/02/24 02:17 Last Admin: 06/07/24 06:33 Dose: 650 mg Atorvastatin Calcium (Atorvastatin 40 Mg Tab) 40 mg PO HS LACEY Stop: 07/02/24 20:59 Last Admin: 06/07/24 21:23 Dose: 40 mg Azelastine HCl (Azelastine Hcl 0.1% Nasal 200 Sprays/27,400 Mcg Btl) 2 sprays JOSE BID LACEY Stop: 07/02/24 08:59 Last Admin: 06/08/24 08:34 Dose: 2 sprays Fish Oil ([place]-3 (Purified Fish Oil) 1 Gm Cap) 1 gm PO BID LACEY Stop: 07/02/24 08:59 Last Admin: 06/08/24 08:35 Dose: 1 gm Fluticasone Propionate (Fluticasone Propionate Na Spr 16 Gm Btl) 2 sprays JOSE DAILY LACEY Stop: 07/02/24 08:59 Last Admin: 06/08/24 08:35 Dose: 2 sprays Folic Acid (Folic Acid 1 Mg Tab) 1 mg PO [facility]; Protocol Stop: 07/04/24 08:59 Last Admin: 06/08/24 08:35 Dose: 1 mg Latanoprost (Latanoprost 0.005% Op Soln 2.5 Ml Btl) 1 drops OP [facility] Stop: 07/02/24 20:59 Last Admin: 06/07/24 21:24 Dose: 1 drops Levothyroxine Sodium (Levothyroxine Sodium 50 Mcg Tablet) [facility] Stop: 07/02/24 06:29 Last Admin: 06/08/24 06:12 Dose: 50 mcg Losartan Potassium (Losartan Potassium 25 Mg Tab) 25 mg PO [facility] Stop: 07/07/24 20:59 Last Admin: 06/07/24 21:22 Dose: 25 mg Naphazoline HCl/Pheniramine Maleate (Naphazolin/Pheniramin Oph Soln 15 Ml Btl) 2 drops OP Q4H PRN PRN Reason: eye irritation Stop: 07/05/24 10:26 Pantoprazole Sodium (Pantoprazole 40 Mg Tab) [facility] Stop: 07/02/24 06:29 Last Admin: 06/08/24 06:12 Dose: 40 mg Quetiapine Fumarate (Quetiapine Fumarate 25 Mg Tablet) 50 mg PO [facility] Stop: 07/02/24 20:59 Last Admin: 06/07/24 21:23 Dose: 50 mg Thiamine HCl (Thiamine Hcl 100 Mg Tab) 100 mg PO [facility]; Protocol Stop: 07/04/24 08:59 Last Admin: 06/08/24 08:36 Dose: 100 mg Trazodone HCl (Trazodone Hcl 100 Mg Tab) 200 mg PO [facility] Stop: 07/02/24 20:59 Last Admin: 06/07/24 21:23 Dose: 200 mg (2) Alcoholic dementia Dementia behavioral or psychological symptom: with other behavioral disturbance Dementia severity: moderate Qualified Code(s): F10.27 - Alcohol dependence with alcohol-induced persisting dementia
[2024-06-08] MEDS: QUEtiapine FUMARATE 25 MG TABLET PO SCH (22:12)
[2024-06-08] MEDS: LOSARTAN POTASSIUM 50 MG TAB PO SCH (22:13)
[2024-06-09] MEDS: NAPHAZOLIN/PHENIRAMIN OPH SOLN 15 ML BTL OP PRN (08:57)
--- NOTE | 2024-06-09 09:42 | Hospitalist Progress Note ---
Date of Service June 09, 2024 Assessment & Plan (1) Encephalopathy: (2) Alcoholic dementia: (3) History of alcohol abuse: (4) Hypertension: (5) Elevated troponin: (6) Hypothyroidism: (7) Obstructive sleep apnea: Plan 69-year-old male with past medical history of hypertension, hypothyroidism, cognitive impairment, LJ close brought to the ED by his brother for worsening confusion, head trauma and facial trauma. Patient's neighbor found patient's glasses, wallet and other possessions on the ground and patient had no recollection or memory of these events. #Acute encephalopathy #Suspected Wernicke's encephalopathy #Alcohol related dementia #History of alcohol use disorder Neurology and psychiatry saw the patient Neurology thinks patient has Wernicke's encephalopathy in setting of alcohol dementia TSH is 0.394 B12 is 521 As per neurology, patient does not have decision-making capacity Psychiatry recommendations reviewed Psychiatry is planning on doing a competency evaluation today As per psychiatry recommendations, Seroquel increased to 150 mg p.o. nightly yesterday As per psychiatry recommendations, use Seroquel 25 mg p.o. twice daily as needed for anxiety/agitation and if patient has a behavioral emergency to use olanzapine 2.5 mg ODT or IM Neurology (Dr. Juan Dawn) has recommended avoiding using anticholinergic and antidopaminergic medications and to continue supportive nutritional care. As per neurology, he will need long-term placement and is not safe to be by himself at home and have advised against driving Neurology has recommended patient follow-up with them as outpatient with Dr. Juan Dawn Check EKG for QTc monitoring Await psychiatry recommendations #Essential hypertension #Elevated troponin #Hyperlipidemia Elevated troponin suspected to be from demand ischemia with no chest pain or EKG changes on presentation Echocardiogram showed normal LV size and function and no regional wall motion abnormalities, no significant valvular abnormalities Continue losartan 50 mg p.o. nightly Continue atorvastatin Monitor vital signs #Hypothyroidism TSH is 0.394 Continue levothyroxine 50 mcg p.o. 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 Patient's brother Hamilton([phone]) updated on the phone Admission and Anticipated Discharge Date Admission Date: June 02, 2024 Subjective Patient seen and examined in room He is cooperative He has been going off on a tangent about going to the [employer] He is complaining of constipation, states last bowel movement 3 days ago Patient does report poor oral hydration and is acknowledging that he is not drinking enough fluids and is willing to try to increase his fluid intake orally He denies any chest pain or shortness of breath Review of Systems Review of Systems: As per HPI Physical Exam Physical Exam: General: Cooperative Psych: Awake and oriented to place and person HEENT: Anicteric sclera, moist oral mucosa CVS: Regular rate and rhythm Lungs: Bilateral air entry, no wheezing noted Abdomen: Soft, nontender, no rebound, no guarding Ext: No lower extremity edema, no calf tenderness Results & Data Results & Data Vital Signs (Past 12 Hours) Vital Signs Temp Pulse Resp BP Pulse Ox O2 Del Method O2 Del Method 06/09/24 07:57 37.1 C 102 H 16 118/80 98 Room Air 06/09/24 07:00 Room Air PG Care Time/CCT Total # of Minutes Spent Total Time Spent with Patient: Total time spent is greater than 50% in coordination of care (as documented) at patient's floor/unit and/or counseling patient: Coding Level of Care Code 25856 SUB INP/OBS CARE 2/35MIN Diagnoses Wernicke encephalopathy E51.2 Encephalopathy type: Wernicke's Moderate dementia associated with alcoholism, with other behavioral disturbance F10.27 Dementia behavioral or psychological symptom: with other behavioral dist urbance Dementia severity: moderate History of alcohol abuse F10.11 Hypertension I10 Elevated troponin R79.89 Other specified hypothyroidism E03.8 Hypothyroidism type: other Obstructive sleep apnea G47.33 (1) Encephalopathy Encephalopathy type: Wernicke's Qualified Code(s): E51.2 - Wernicke's encephalopathy (2) Alcoholic dementia Dementia behavioral or psychological symptom: with other behavioral disturbance Dementia severity: moderate Qualified Code(s): F10.27 - Alcohol dependence with alcohol-induced persisting dementia (6) Hypothyroidism Hypothyroidism type: other Qualified Code(s): E03.8 - Other specified hypothyroidism
[2024-06-09] MEDS: POLYETHYLENE (MIRALAX) 17 GM PACK PO SCH (11:55)
--- NOTE | 2024-06-09 13:48 | Psychiatric Progress Note ---
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 Psychiatry consulted for evaluation and decision making capacity about placement. A: Diagnostically remains unclear. Spent significant time reviewing chart and outpatient neuropsychological testing, scanned outpatient psychiatry notes, and outpatient neurology visits. Across these visits his memory challenges have fluctuated quite significantly (from hardly any deficits to fairly significant) and with more chronic delusions including grandiose beliefs about being in contact with the President and FBI involvement. Given that some of his delusions appear more chronic and no evidence for history of BPAD, psychosis, MDD with psychotic features predated memory issues the likelihood for his symptoms being due to primary psychiatric condition is highly unlikely, especially after diagnosis at discharge following 6 week inpatient psychiatric admission in 2021 was major neurocognitive disorder. Fluctuating course again seems more consistent with Lewy Body type picture but he denies any hallucinations vs atypical dementia process vs possibility this episode (which is striking similar to what occurred in 2021) may have been set off by alcohol use or other cause triggering delirium superimposed on current dementia process. Given ongoing delusions, mood lability and poor sleep and no evidence for EPS or other side effects encourage further titration of Seroquel as potential benefits are felt to outweigh risks. In terms of decision making capacity regarding disposition: At this time given his loosened associations, fluctuating orientation and disorganized behaviors he is not felt to have decision making capacity. In terms of decision making capacity it is foremost critical to emphasis that this assessment is task specific, dimensional and DOES NOT REPRESENT NOR CAN IT BE USED A MEANS OF ASSESSING GLOBAL LEGAL COMPETENCY OR NEED FOR GUARDIANSHIP. A LEGAL COMPETENCY ASSESSMENT IS SEPARATE, DISTINCT AND REQUIRES EXTENSIVE EVALUATION TYPICALLY TO INCLUDE FORMAL COGNITIVE ASSESSMENTS INCLUDING NEUROPSYCHOLOGICAL and IQ TESTING, DISCUSSION WITH LONGITUDINAL ASSOCIATES AND PROVIDERS WHO HAVE KNOWN A PATIENT OVER A PERIOD OF MONTHS OR YEARS, COMPREHENSIVE INTERVIEWS AND GENERALLY INVOLVEMENT OF SPECIALIZED FORENSIC PSYCHOLOGISTS OR PSYCHIATRISTS. Assessment of Decision-Making Capacity Criterion (X=present) Patient Task YES-to return home Communicates a choice Patient is able to clearly indicate preferred treatment option in a clear and consistent manner. NO Understands information provided Patient understands their condition and treatment options. NO cannot speak to options nor recent concerns. NO Appreciates consequences Patient shows appropriately nuanced appreciation for the risks & benefits associated with available treatment options, including no treatment. LACKING. NO Manipulates relevant information Patient able to rationally weigh risks & benefits, as well as offer reasons for their decision It is important to note that a patient's decision can be unwise as long as a rational process was used to arrive at it. Decision making capacity determinations are decision and time specific. He is lacking capacity with re spect to this particular decision-making task at this time. He is not able to articulate reasons for his decision and shows signs of cognitive impairment, delirium, and psychosis that are interfering with his ability to meaningfully understand information and appreciate the risks/benefits of different options. The patient's decision making capacity could change in the future given that t heir mental status and various other factors can certainly fluctuate over time. Overall, I spent a total of 60 minutes with this case including review of chart records, review of labwork, discussion of the patient with the Nurse and with the hospitalist provider, discussion with the psychiatric liason during clinical rounds and documentation in the electronic health record. (1) Delirium: (2) Alcoholic dementia: (3) History of alcohol abuse: (4) Elevated troponin: (5) Obstructive sleep apnea: (6) Delusions: (7) Paranoia: Plan -Continue Trazodone 200mg HS -Consider increase Quetiapine to 300mg HS -Can utilize Seroquel 25 mg BID po prn for anxiety/agitation -Discontinue prior to admission Zolpidem (has been held since admission) -Discontinue prior to admission Modafinil (has been held since admission) -Resume CPAP therapy -Attempting to get further collateral from his outpatient psychiatric provider but also able to review past outpatient notes that are in the chart -For acute behavioral emergency would use: Olanzapine 2.5mg ODT OR IM BID PRN for agitation (DO NOT exceed 10mg per 24 hours, check EKG if IM dose required, NEVER co-administer with IM or IV benzodiazepine). 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 Psychiatry consulted for evaluation and decision making capacity about placement. Chief Complaint "I'm assuming the FBI will be involved because I'm asking things that can change the nation". Subjective Subjective Patient was seen & assessed and interval progress reviewed. Irritability, paranoia about paper towels on his bed requiring documentation by the FBI, periods of restlessness per RN notes. He took the higher dose of Seroquel last night, still having difficulty sleeping. Today he is A&Ox4. He denies any side effects from higher dose of Seroquel, still struggling with sleep. He reports concerns that his brother is stealing his money. Believes he has "millions". Reports some of the evidence his brother has been stealing his money is because "my sister in law has cancer and only 30% renal function because my brother took her money". Acknowledges memory issues but doesn't feel he needs additional support, wants to live on his own. Wishes instead his neighbor could move in with him. Recalls sending his neighbor an email about his brother and wanted her to "rally" the neighbors which she did. He wants her to provide details of this to him when he visits today and to have his [id number] write it all down because "she takes good notes". Feels the FBI is involved due to "I'm asking things that can change a nation". Acknowledges hx alcohol use, primarily for anxiety and depression, but denies any recent excessive drinking or chance of withdrawal but today does report recent alcohol use of drinking about a can of beer per week. He denies any SI. Wishes he could drive to a concert in [place] next week. Says he can struggle with his memory of "forgetting where I place things" and this can make him frustrated. States he has a diagnosis of "Alzheimer's". Denies any history of BPAD, or past episodes of nimo even in his youth nor any psychiatric hospitalizations prior to 2021 for similar symptoms to this current episode. States he has struggled with sleep even while on medication, he did not find addition of Ambien prior to admission as offering an additional benefit. Denies any hallucinations. Physical Exam Psychiatric Orientation: alert, oriented x 3 and cooperative Apperance: appropriately dressed and appropriately groomed Eye Contact: good eye contact Motor Behavior: steady gait and station and no abnormal motor movements Speech: normal rate/rhythm/volume of speech Affect: + anxious affect, + tearful affect and + labile affect Mood: + depressed mood (due to discussion about not returning to independent living), + anxious mood and + irritable mood Thought Process: + tangential thought process and + looseness of associations Thought Content: + paranoid and + delusions (grandiose) Suicidal Thoughts: denies suicidal thoughts Homicidal Thoughts: denies homicidal thoughts Hallucinations: no auditory hallucinations and no visual hallucinations Insight: + limited insight Judgment: + limited judgement Vital Signs (Past 24 Hours) Last Vital Signs Temp 37.1 C 06/09/24 07:57 Pulse 102 H 06/09/24 07:57 Resp 16 06/09/24 07:57 BP 118/80 06/09/24 07:57 Pulse Ox 98 06/09/24 07:57 O2 Del Method Room Air 06/09/24 07:57 FiO2 21 06/02/24 23:00 Results & Data ([facility]) Current Inpatient Medications Current Inpatient Medications: Current Inpatient Medications Acetaminophen (Acetaminophen 325 Mg Tab) 650 mg PO Q4H PRN PRN Reason: Pain or Fever Stop: 07/02/24 02:17 Last Admin: 06/09/24 09:08 Dose: 650 mg Atorvastatin Calcium (Atorvastatin 40 Mg Tab) 40 mg PO HS LACEY Stop: 07/02/24 20:59 Last Admin: 06/08/24 21:58 Dose: 40 mg Azelastine HCl (Azelastine Hcl 0.1% Nasal 200 Sprays/27,400 Mcg Btl) 2 sprays JOSE BID LACEY Stop: 07/02/24 08:59 Last Admin: 06/09/24 08:58 Dose: 2 sprays Fish Oil ([place]-3 (Purified Fish Oil) 1 Gm Cap) 1 gm PO BID LACEY Stop: 07/02/24 08:59 Last Admin: 06/09/24 08:58 Dose: 1 gm Fluticasone Propionate (Fluticasone Propionate Na Spr 16 Gm Btl) 2 sprays JOSE DAILY [facility]ACEY Stop: 07/02/24 08:59 Last Admin: 06/09/24 08:57 Dose: 2 sprays Folic Acid (Folic Acid 1 Mg Tab) 1 mg PO QAM LACEY; Protocol Stop: 07/04/24 08:59 Last Admin: 06/09/24 08:59 Dose: 1 mg Latanoprost (Latanoprost 0.005% Op Soln 2.5 Ml Btl) 1 drops OP HS LACEY Stop: 07/02/24 20:59 Last Admin: 06/08/24 21:59 Dose: 1 drops Levothyroxine Sodium (Levothyroxine Sodium 50 Mcg Tablet) 50 mcg PO DAILYBB [facility] Stop: 07/02/24 06:29 Last Admin: 06/09/24 08:59 Dose: 50 mcg Losartan Potassium (Losartan Potassium 50 Mg Tab) 50 mg PO HS [facility] Stop: 07/08/24 20:59 Last Admin: 06/08/24 22:13 Dose: 50 mg Naphazoline HCl/Pheniramine Maleate (Naphazolin/Pheniramin Oph Soln 15 Ml Btl) 2 drops OP Q4H PRN PRN Reason: eye irritation Stop: 07/05/24 10:26 Last Admin: 06/09/24 08:57 Dose: 2 drops Pantoprazole Sodium (Pantoprazole 40 Mg Tab) 40 mg PO DAILYBB [facility] Stop: 07/02/24 06:29 Last Admin: 06/09/24 08:58 Dose: 40 mg Polyethylene Glycol (Polyethylene (Miralax) 17 Gm Pack) 17 gm PO DAILY [facility] Stop: 07/09/24 08:59 Last Admin: 06/09/24 11:55 Dose: 17 gm Quetiapine Fumarate (Quetiapine Fumarate 25 Mg Tablet) 150 mg PO [facility] Stop: 07/08/24 20:59 Last Admin: 06/08/24 22:12 Dose: 150 mg Quetiapine Fumarate (Quetiapine Fumarate 25 Mg Tablet) 25 mg PO BID PRN PRN Reason: Anxiety/Agitation Stop: 07/08/24 20:59 Sennosides (Senna 8.6 Mg Tab) 17.2 mg PO [facility] Stop: 07/09/24 20:59 Thiamine HCl (Thiamine Hcl 100 Mg Tab) 100 mg PO [facility]; Protocol Stop: 07/04/24 08:59 Last Admin: 06/09/24 08:58 Dose: 100 mg Trazodone HCl (Trazodone Hcl 100 Mg Tab) 200 mg PO [facility] Stop: 07/02/24 20:59 Last Admin: 06/08/24 22:02 Dose: 200 mg (2) Alcoholic dementia Dementia behavioral or psychological symptom: with other behavioral disturbance Dementia severity: moderate Qualified Code(s): F10.27 - Alcohol dependence with alcohol-induced persisting dementia
[2024-06-09] MEDS: SENNA 8.6 MG TAB PO SCH (21:14)
[2024-06-09] MEDS: QUEtiapine FUMARATE 300 MG TABLET PO SCH (21:14)
[2024-06-10 06:49] LABS: Basophils # (auto) 0.05 K/uL (0.00-0.20); Basophils % (auto) 0.8 %; Eosinophils # (auto) 0.33 K/uL (0.00-0.50); Eosinophils % (auto) 5.1 %; Hemoglobin 12.4 g/dl (14.0-18.0); Immature Granulocytes # (auto) 0.02 K/uL (0.01-0.20); Immature Granulocytes % (auto) 0.3 %; Lymphocytes # (auto) 2.16 K/uL (1.20-3.40); Lymphocytes % (auto) 33.5 %; Mean Corpuscular Hemoglobin 31.2 pg (25.0-34.0); Mean Corpuscular Hgb Conc 35.4 g/dL (32.0-36.0); Mean Corpuscular Volume 88.2 fL (80.0-100.0); Mean Platelet Volume 9.8 fL (9.4-12.4); Monocytes # (auto) 0.66 K/uL (0.11-0.59); Monocytes % (auto) 10.2 %; Neutrophils # (auto) 3.22 K/uL (1.40-6.50); Neutrophils % (auto) 50.1 %; Platelet Count 242 K/uL (130-400); RDW Coefficient of Variation 13.2 % (11.5-14.5); RDW Standard Deviation 43.3 fL (36.4-46.3); Red Blood Count 3.97 M/uL (4.70-6.10); White Blood Count 6.44 K/ul (4.8-10.8)
[2024-06-10 06:53] LABS: Albumin Globulin Ratio 1.7 (0.9-2); Albumin Level 3.6 gm/dl (3.4-5.0); Bilirubin,Total 0.6 mg/dl (0.2-1.0); Calcium 9.2 mg/dl (8.6-10.3); Creatinine Clr Calc Pharmacy 74.1 ml/min; Est GFR (African American) 99.3 ml/min; Est GFR (Non-African American) 85.7 ml/min; Globulin 2.1 gm/dl (2.5-4.0); Magnesium 1.9 mg/dl (1.7-2.4); Potassium 3.9 mmol/L (3.5-5.1); Total Protein 5.7 gm/dl (6.0-8.3)
--- NOTE | 2024-06-10 11:44 | Hospitalist Progress Note ---
Date of Service June 10, 2024 Assessment & Plan (1) Encephalopathy: (2) Alcoholic dementia: (3) History of alcohol abuse: (4) Hypertension: (5) Elevated troponin: (6) Hypothyroidism: (7) Obstructive sleep apnea: Plan 69-year-old male with past medical history of hypertension, hypothyroidism, cognitive impairment, LJ close brought to the ED by his brother for worsening confusion, head trauma and facial trauma. Patient's neighbor found patient's glasses, wallet and other possessions on the ground and patient had no recollection or memory of these events. #Acute encephalopathy #Suspected Wernicke's encephalopathy #Alcohol related dementia #History of alcohol use disorder Neurology and psychiatry saw the patient Neurology thinks patient has Wernicke's encephalopathy in setting of alcohol dementia TSH is 0.394 B12 is 521 As per neurology, patient does not have decision-making capacity Psychiatry recommendations reviewed Psychiatry saw the patient on 06/09/2024 I did not feel he has decisional making capacity As per psychiatry recommendations, Seroquel increased to 300 mg p.o. nightly As per psychiatry recommendations, use Seroquel 25 mg p.o. twice daily as needed for anxiety/agitation and if patient has a behavioral emergency to use olanzapine 2.5 mg ODT or IM Neurology (Dr. Juan Dawn) has recommended avoiding using anticholinergic and antidopaminergic medications and to continue supportive nutritional care. As per neurology, he will need long-term placement and is not safe to be by himself at home and have advised against driving Neurology has recommended patient follow-up with them as outpatient with Dr. Juan Dawn QTcb is 449 #Essential hypertension #Elevated troponin #Hyperlipidemia Elevated troponin suspected to be from demand ischemia with no chest pain or EKG changes on presentation Echocardiogram showed normal LV size and function and no regional wall motion abnormalities, no significant valvular abnormalities Continue losartan 50 mg p.o. nightly Continue atorvastatin Monitor vital signs #Hypothyroidism TSH is 0.394 Continue levothyroxine 50 mcg p.o. daily #Sleep apnea CPAP at bedtime CODE STATUS: DNR/DNI DVT prophylaxis: Patient is ambulatory Patient will need long-term placement: manager strategic working with family and awaiting evaluation from [place]: Patient is medically stable for discharge when bed available Patient's brother Hamilton ([phone]) updated on the phone Admission and Anticipated Discharge Date Admission Date: June 02, 2024 Subjective Patient seen and examined Patient states he slept much better last night He took MiraLAX and then had loose stool Overall appetite and hydration have improved He is inquiring about long COVID He wants to meet with the case management assistant He denies any chest pain or shortness of breath Denies any nausea, vomiting or abdominal pain Review of Systems Review of Systems: As per HPI Physical Exam Physical Exam: General: Cooperative Psych: Awake and oriented to place and person HEENT: Anicteric sclera, moist oral mucosa CVS: Regular rate and rhythm Lungs: Bilateral air entry, no wheezing noted Abdomen: Soft, nontender, no rebound, no guarding Ext: No lower extremity edema, no calf tenderness Results & Data Results & Data Vital Signs (Past 12 Hours) Vital Signs Temp Pulse Resp BP Pulse Ox O2 Del Method 06/10/24 07:17 36.7 C 87 17 107/68 98 Room Air Laboratory Results Laboratory Results - last 24 hr 06/10/24 05:34 WBC 6.44 RBC 3.97 L Hgb 12.4 L Hct 35.0 L MCV 88.2 MCH 31.2 MCHC 35.4 RDW Std Deviation 43.3 RDW Coeff of Elsie 13.2 Plt Count 242 MPV 9.8 Immature Gran % (Auto) 0.3 Neut % (Auto) 50.1 Lymph % (Auto) 33.5 [place] % (Auto) 10.2 Eos % (Auto) 5.1 Baso % (Auto) 0.8 Neut # (Auto) 3.22 Lymph # (Auto) 2.16 [place] # (Auto) 0.66 H Eos # (Auto) 0.33 Baso # (Auto) 0.05 Immature Gran # (Auto) 0.02 Sodium 139 Potassium 3.9 Chloride 106 Carbon Dioxide 28 Anion Gap 5 BUN 20 Creatinine 0.91 Est Cr Clr Drug Dosing 74.1 Est GFR ( Amer) 99.3 Est GFR (Non-Af Amer) 85.7 BUN/Creatinine Ratio 22.0 H Glucose 98 Calcium 9.2 Magnesium 1.9 Total Bilirubin 0.6 AST 27 ALT 34 Alkaline Phosphatase 45 Total Protein 5.7 L Albumin 3.6 Globulin 2.1 L Albumin/Globulin Ratio 1.7 PG Care Time/CCT Total # of Minutes Spent Total Time Spent with Patient: Total time spent is greater than 50% in coordination of care (as documented) at patient's floor/unit and/or counseling patient: Coding Level of Care Code 00061 SUB INP/OBS CARE Diagnoses Wernicke encephalopathy E51.2 Encephalopathy type: Wernicke's Moderate dementia associated with alcoholism, with other behavioral disturbance F10.27 Dementia behavioral or psychological symptom: with other behavioral disturbance Dementia severity: moderate History of alcohol abuse F10.11 Hypertension I10 Elevated troponin R79.89 Other specified hypothyroidism E03.8 Hypothyroidism type: other Obstructive sleep apnea G47.33 (1) Encephalopathy Encephalopathy type: Wernicke's Qualified Code(s): E51.2 - Wernicke's encephalopathy (2) Alcoholic dementia Dementia behavioral or psychological symptom: with other behavioral disturbance Dementia severity: moderate Qualified Code(s): F10.27 - Alcohol dependence with alcohol-induced persisting dementia (6) Hypothyroidism Hypothyroidism type: other Qualified Code(s): E03.8 - Other specified hypothyroidism
[2024-06-10] MEDS ORDERED: POLYETHYLENE (MIRALAX) 17 GM PACK PO PRN (11:48)
--- NOTE | 2024-06-10 12:17 | Electrocardiogram Report ---
Test Reason : Blood Pressure : */* mmHG Vent. Rate : 80 BPM Atrial Rate : 80 BPM P-R Int : 126 ms QRS Dur : 94 ms QT Int : 390 ms P-R-T Axes : 54 1 28 degrees QTcB Int : 449 ms Normal sinus rhythm Normal ECG When compared with ECG of 01-Jun-2024 19:36, No significant change was found Confirmed by Yony Rosas ([id number]) on 06/10/2024 12:16:56 PM Referred By: REFERRED SELF Confirmed By: Yony Rosas
[2024-06-11] MEDS: QUEtiapine FUMARATE 25 MG TABLET PO PRN (03:28)
[2024-06-11] MEDS: BENZOCAINE 20% (ORAJEL) 11.9 GM TUBE MT PRN (10:42)
--- NOTE | 2024-06-11 12:02 | Hospitalist Progress Note ---
Date of Service June 11, 2024 Assessment & Plan (1) Encephalopathy: (2) Alcoholic dementia: (3) History of alcohol abuse: (4) Hypertension: (5) Elevated troponin: (6) Hypothyroidism: (7) Obstructive sleep apnea: Plan 69-year-old male with past medical history of hypertension, hypothyroidism, cognitive impairment, LJ close brought to the ED by his brother for worsening confusion, head trauma and facial trauma. Patient's neighbor found patient's glasses, wallet and other possessions on the ground and patient had no recollection or memory of these events. #Acute encephalopathy #Suspected Wernicke's encephalopathy #Alcohol related dementia #History of alcohol use disorder Outpatient psychiatrist is Dr. Raman Neurology and psychiatry saw the patient Neurology thinks patient has Wernicke's encephalopathy in setting of alcohol dementia TSH is 0.394 B12 is 521 As per neurology, patient does not have decision-making capacity Psychiatry recommendations reviewed Psychiatry saw the patient on 06/09/2024 and did not feel he has decisional m aking capacity As per psychiatry recommendations, continue Seroquel 300 mg p.o. nightly As per psychiatry recommendations, use Seroquel 25 mg p.o. twice daily as needed for anxiety/agitation and if patient has a behavioral emergency to use olanzapine 2.5 mg ODT or IM Neurology (Dr. Juan Dawn) has recommended avoiding using anticholinergic and antidopaminergic medications and to continue supportive nutritional care. As per neurology, he will need long-term placement and is not safe to be by himself at home and have advised against driving Neurology has recommended patient follow-up with them as outpatient with Dr. Juan Dawn QTcb is 449 Patient will need follow-up with neurology as outpatient and also with his own psychiatrist as outpatient #Essential hypertension #Elevated troponin #Hyperlipidemia Elevated troponin suspected to be from demand ischemia with no chest pain or EKG changes on presentation Echocardiogram showed normal LV size and function and no regional wall motion abnormalities, no significant valvular abnormalities Continue losartan 50 mg p.o. nightly Continue atorvastatin Monitor vital signs #Hypothyroidism TSH is 0.394 Continue levothyroxine 50 mcg p.o. 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 with family and awaiting evaluation from [place]: Patient is medically stable for discharge when bed available Patient's brother Hamilton ([phone]) updated on the phone yesterday, no new updates today Admission and Anticipated Discharge Date Admission Date: June 02, 2024 Subjective Patient resting comfortably, ambulating in the room without any issues He is smiling and cooperative and states he feels good today He denies any chest pain, shortness of breath, nausea, vomiting, diarrhea or abdominal pain Tolerating oral diet without any issues Patient had questions about seeing dermatology and ENT as outpatient: Advised to follow-up with his PCP Review of Systems Review of Systems: As per HPI Physical Exam Physical Exam: General: Cooperative Psych: Awake and oriented to place and person HEENT: Anicteric sclera, moist oral mucosa CVS: Regular rate and rhythm Lungs: Bilateral air entry, no wheezing noted Abdomen: Soft, nontender, no rebound, no guarding Ext: No lower extremity edema, no calf tenderness Results & Data Results & Data Vital Signs (Past 12 Hours) Vital Signs Temp Pulse Resp BP Pulse Ox O2 Del Method 06/11/24 06:57 36.6 C 80 16 110/70 99 Room Air PG Care Time/CCT Total # of Minutes Spent Total Time Spent with Patient: Total time spent is greater than 50% in coordination of care (as documented) at patient's floor/unit and/or counseling patient: Coding Level of Care Code 09536 SUB INP/OBS CARE 10/15MIN Diagnoses Wernicke encephalopathy E51.2 Encephalopathy type: Wernicke's Moderate dementia associated with alcoholism, with other behavioral disturbance F10.27 Dementia behavioral or psychological symptom: with other behavioral distur bance Dementia severity: moderate History of alcohol abuse F10.11 Hypertension I10 Elevated troponin R79.89 Other specified hypothyroidism E03.8 Hypothyroidism type: other Obstructive sleep apnea G47.33 (1) Encephalopathy Encephalopathy type: Wernicke's Qualified Code(s): E51.2 - Wernicke's encephalopathy (2) Alcoholic dementia Dementia behavioral or psychological symptom: with other behavioral disturbance Dementia severity: moderate Qualified Code(s): F10.27 - Alcohol dependence with alcohol-induced persisting dementia (6) Hypothyroidism Hypothyroidism type: other Qualified Code(s): E03.8 - Other specified hypothyroidism
--- NOTE | 2024-06-12 13:24 | Hospitalist Progress Note ---
Date of Service June 12, 2024 Assessment & Plan (1) Encephalopathy: (2) Alcoholic dementia: (3) History of alcohol abuse: (4) Hypertension: (5) Elevated troponin: (6) Hypothyroidism: (7) Obstructive sleep apnea: Plan 69-year-old male with past medical history of hypertension, hypothyroidism, cognitive impairment, LJ close brought to the ED by his brother for worsening confusion, head trauma and facial trauma. Patient's neighbor found patient's glasses, wallet and other possessions on the ground and patient had no recollection or memory of these events. #Acute encephalopathy #Suspected Wernicke's encephalopathy #Alcohol related dementia #History of alcohol use disorder Outpatient psychiatrist is Dr. Raman Neurology and psychiatry saw the patient Neurology thinks patient has Wernicke's encephalopathy in setting of alcohol dementia TSH is 0.394 B12 is 521 As per neurology, patient does not have decision-making capacity Psychiatry recommendations reviewed Psychiatry saw the patient on 06/09/2024 and did not feel he has decisional m aking capacity As per psychiatry recommendations, continue Seroquel 300 mg p.o. nightly As per psychiatry recommendations, use Seroquel 25 mg p.o. twice daily as needed for anxiety/agitation and if patient has a behavioral emergency to use olanzapine 2.5 mg ODT or IM Neurology (Dr. Juan Dawn) has recommended avoiding using anticholinergic and antidopaminergic medications and to continue supportive nutritional care. As per neurology, he will need long-term placement and is not safe to be by himself at home and have advised against driving Neurology has recommended patient follow-up with them as outpatient with Dr. Juan Dawn QTcb is 449 Patient will need follow-up with neurology as outpatient and also with his own psychiatrist Dr. Raman as outpatient on discharge #Essential hypertension #Elevated troponin #Hyperlipidemia Elevated troponin suspected to be from demand ischemia with no chest pain or EKG changes on presentation Echocardiogram showed normal LV size and function and no regional wall motion abnormalities, no significant valvular abnormalities Continue losartan 50 mg p.o. nightly Continue atorvastatin Heart healthy diet per patient request Monitor vital signs #Hypothyroidism TSH is 0.394 Continue levothyroxine 50 mcg p.o. daily #Sleep apnea CPAP at bedtime CODE STATUS: DNR/DNI DVT prophylaxis: Patient is ambulatory PT reconsulted per patient request Patient will need long-term placement: [facility] working with family and awaiting evaluation from [facility]: Patient is medically stable for discharge when bed available Patient's brother Hamilton ([phone]) updated at bedside Admission and Anticipated Discharge Date Admission Date: June 02, 2024 Subjective Patient seen and examined Patient's brother Hamilton at bedside Patient denies any chest pain or shortness of breath He wants to be placed on a heart healthy diet He has questions about sleep study and have advised him to see his PCP for outpatient sleep study Patient is requesting physical therapy Review of Systems Review of Systems: As per HPI Physical Exam Physical Exam: General: Cooperative Psych: Awake and oriented to place and person HEENT: Anicteric sclera, moist oral mucosa CVS: Regular rate and rhythm Lungs: Bilateral air entry, no wheezing noted Abdomen: Soft, nontender, no rebound, no guarding Ext: No lower extremity edema, no calf tenderness PG Care Time/CCT Total # of Minutes Spent Total Time Spent with Patient: Total time spent is greater than 50% in coordination of care (as documented) at patient's floor/unit and/or counseling patient: Coding Level of Care Code 46887 SUB INP/OBS CARE 10/15MIN Diagnoses Wernicke encephalopathy E51.2 Encephalopathy type: Wernicke's Moderate dementia associated with alcoholism, with other behavioral disturbance F10.27 Dementia behavioral or psychological symptom: with other behavioral disturbance Dementia severity: moderate History of alcohol abuse F10.11 Hypertension I10 Elevated troponin R79.89 Other specified hypothyroidism E03.8 Hypothyroidism type: other Obstructive sleep apnea G47.33 (1) Encephalopathy Encephalopathy type: Wernicke's Qualified Code(s): E51.2 - Wernicke's encephalopathy (2) Alcoholic dementia Dementia behavioral or psychological symptom: with other behavioral disturbance Dementia severity: moderate Qualified Code(s): F10.27 - Alcohol dependence with alcohol-induced persisting dementia (6) Hypothyroidism Hypothyroidism type: other Qualified Code(s): E03.8 - Other specified hypothyroidism
--- NOTE | 2024-06-13 13:03 | Hospitalist Progress Note ---
Date of Service June 13, 2024 Assessment & Plan (1) Encephalopathy: Plan: Warnicke's encephalopathy suspected per neurology. He does have a history of alcoholism. Continue supportive care. Appreciate psychiatry consultation and recommendations also (2) Alcoholic dementia: Plan: Supportive care. Warnicke's encephalopathy suspected by neurology. (3) History of alcohol abuse: Plan: Alcohol intake cessation is highly recommended (4) Hypertension: Plan: Stable. Continue current medical management (5) Elevated troponin: Plan: No evidence of acute coronary syndrome. (6) Hypothyroidism: Plan: Stable. Continue current thyroid replacement therapy Plan Supportive care. Placement is pending. Admission and Anticipated Discharge Date Admission Date: June 02, 2024 Subjective The patient is awake and alert and ambulating in the room at the time of my examination. His brother is at the bedside and request that psychiatry reevaluate him today, June 13. This has been requested. Warnicke's encephalopathy is suspected Review of Systems 2 Review of Systems: The patient is unable to answer reliably any questions regarding review of systems at this time Physical Exam 2 Physical Exam: General-alert and oriented x1, no fever. HEENT-head atraumatic and normocephalic, pupils equal and reactive to light, extraocular muscles intact Neck-no lymphadenopathy or thyromegaly, trachea midline Chest-clear to auscultation. No rales, wheezing or rhonchi Cardiac-regular rate and rhythm, normal S1 and S2 Abdomen-normal bowel sounds, no hepatosplenomegaly Extremities-no cyanosis, clubbing, or edema Neuro-cranial nerves II through XII intact, motor and sensory function within normal limits, strength symmetrical, no focal deficits Psych- the patient is alert and talkative although not making any sense. Results & Data Results & Data Vital Signs (Past 12 Hours) Vital Signs Temp Pulse Resp BP Pulse Ox O2 Del Method 06/13/24 07:44 36.8 C 75 18 130/79 99 Room Air Laboratory Results 06/10/24 05:34 06/10/24 05:34 PG Care Time/CCT Total # of Minutes Spent Total Time Spent with Patient: Total time spent is greater than 50% in coordination of care (as documented) at patient's floor/unit and/or counseling patient: Coding Level of Care Code 80175 SUB INP/OBS CARE 3/50MIN Diagnoses Wernicke encephalopathy E51.2 Encephalopathy type: Wernicke's Moderate dementia associated with alcoholism, with other behavioral disturbance F10.27 Dementia severity: moderate Dementia behavioral or psychological symptom: with other behavioral disturbance History of alcohol abuse F10.11 Hypertension I10 Elevated troponin R79.89 Other specified hypothyroidism E03.8 Hypothyroidism type: other (1) Encephalopathy Encephalopathy type: Wernicke's Qualified Code(s): E51.2 - Wernicke's encephalopathy (2) Alcoholic dementia Dementia severity: moderate Dementia behavioral or psychological symptom: w ith other behavioral disturbance Qualified Code(s): F10.27 - Alcohol dependence with alcohol-induced persisting dementia (6) Hypothyroidism Hypothyroidism type: other Qualified Code(s): E03.8 - Other specified hypothyroidism
[2024-06-13] MEDS: OMEGA-3 (PURIFIED FISH OIL) 1 GM CAP PO SCH (20:23)
--- NOTE | 2024-06-14 08:17 | Hospitalist Progress Note ---
Date of Service June 14, 2024 Assessment & Plan (1) Altered mental status: Plan: Patient present with encephalopathy suspected to be toxic encephalopthy from medicine mismanagement due to his memory imparement. imaging for cranial and vascular abnormalities are negative as well as imaging for concern for infectious disease are negative. Patient has had his medications of modafinil as zoLipidem held -psychiatry feels should not restart remains on trazodone and quetiapine at bedtime neurology consult Dr. Dawn recommends dosing reductions Pt with history of memory loss and mental illness, has been in [facility] unit as inpt in the past, Psychiatry eval:, in my opinion patient does not have decision making capacity to determine appropriate placement upon discharge given his acute confused state, poor orientation and inability to engage in discussion regarding placement. He would benefit from placement in a higher level of care. Concussion with unknown loss of consciousness (2) Elevated troponin: Plan: Elevated troponin without significant trend we will assume this is demand ischemia at this time. No acute EKG changes on presentation Echocardiogram on presentation showed normal LV size and function no regional wall motion abnormalities no significant valvular abnormalities Troponins are 66-61-55-56. (3) History of alcohol abuse: Plan: Patient history of alcohol abuse with his placement risk for Warnicke's encephalopathy. He was given thiamine after banana bag in the emergency department. No acute signs of alcohol withdrawal at the present time (4) Obstructive sleep apnea: Plan: Patient follows with sleep clinic for which she takes his modafinil continue CPAP at night Typically 8 cm of water Plan Altered mental status/history of neurocognitive disorder/history of alcohol abuse- Patient has no recollection of how his wallet, glasses and other personal facts were outside found by his neighbors, who notified his brother. Reportedly patient has a POLST form on file and request to be DNR Hypokalemia- replete ask for testosterone injections, usually has 80 mg once a month brother wants to try to have in home care givers and will look for case management advice Admission and Anticipated Discharge Date Admission Date: June 02, 2024 Subjective The patient is awake and alert and ambulating in the room at the time of my examination. pt has multiple questions regarding his disposition no physical complaints Physical Exam Physical Exam: Pleasant and cooperative, very forgetful and tangential cardiac is regular lungs clear oriented x 1, non focal neurol exam Results & Data Results & Data Vital Signs (Past 12 Hours) Vital Signs Temp Pulse Resp BP BP Pulse Ox O2 Del Method 06/14/24 07:58 97.3 F L 72 18 126/78 100 Room Air 06/13/24 20:20 97.9 F 80 16 133/81 98 Room Air PG Care Time/CCT Total # of Minutes Spent Total Time Spent with Patient: Total time spent is greater than 50% in coordination of care (as documented) at patient's floor/unit and/or counseling patient: Coding Level of Care Code 36330 SUB INP/OBS CARE 2/35MIN Diagnoses Altered mental status R41.82 Elevated troponin R79.89 History of alcohol abuse F10.11 Obstructive sleep apnea G47.33
[2024-06-15] MEDS ORDERED: NYSTATIN POWDER 15GM BTL EXT PRN (08:04)
--- NOTE | 2024-06-15 15:31 | Psychiatric Progress Note ---
Date of Service June 15, 2024 Impression / Recommendations Impression 69 y/o man with h/o suspected alcohol induced dementia, alcohol dependence, LJ, HTN, Hypothyroidism presents with AMS in the context of recent fall and facial contusion. Psychiatry consulted for evaluation and decision making capacity about placement. A: Patient presents on-going persecutory delusions and there is some concern he may act on these thoughts. Reports recent insomnia, auditory hallucinations. C oncern for patient's safety with independent or semi independent living situation and may benefit from admission to geriatric psychiatry for further management and appropriate disposition. Collateral gathered from family and recommend inpatient geriatric psychiatry; pt is agreeable with this plan as well. Overall, I spent a total of 30 minutes with this case including review of chart records, review of labwork, gathering collateral, discussion with the psychiatric liason during clinical rounds and documentation in the electronic health record. (1) Delusions: (2) Paranoia: (3) Alcoholic dementia: (4) History of alcohol abuse: (5) Elevated troponin: (6) Obstructive sleep apnea: Plan -Continue current psychiatric regimen -Inpatient geriatric psychiatry referral Interval History Identifying Information 69 y/o man with h/o suspected alcohol induced dementia, alcohol dependence, LJ, HTN, Hypothyroidism presents with AMS in the context of recent fall and facial contusion. Psychiatry consulted for evaluation and decision making capacity about placement. Chief Complaint "Break out of [facility]" Subjective Subjective Patient reports intention to send note to his outpatient geriatric psychiatrist expressing his needs. He reports wanting to go home. Says that [place] will not take him. He is open to geriatric psychiatry inpatient to progress. He provide he reports 6 hours sleep last night. Reports 2 days ago he did not sleep for 48 hours and at that time was hearing voices. He reports feeling safe here and denies current auditory visualizations. He reports fear that the FBI has electronics including phone laptop and USB sticks. Reports these were taken by FBI agents and local officers are involved. When asked about more details he briefly got upset and then reports that the FBI came with a jet on the runway in case he had to take him. Said they also took a DNA sample. Denies SI. He reports occasional alcohol intake at home of 1-2 beers max a day and many sober days. Called patient's brother and POA (Hamilton [phone])- went to voicemail Called patient's sister in law (Cookie) - Past past [facility] transition unit for 6 weeks and happy with care he recieved. Were able to improve his condition. Was im memory care in [place] in a month and then back to assisted living. More delusional than at baseline. Family prefers inpatient [facility]. Physical Exam Mental Examination Appearance: Well Groomed Eye Contact: Maintains Eye Contact Motor Behavior: Restless Speech: Rambling Mood: Euthymic Affect: Congruent Thought Process: Circumstantial Thought Content: Intact and Preoccupation ("FBI stole his electronics") Hallucinations: Auditory (recent) Insight: Poor Judgement: Poor Vital Signs (Past 24 Hours) Last Vital Signs Temp 36.4 C L 06/15/24 14:22 Pulse 75 06/15/24 14:22 Resp 18 06/15/24 14:22 BP 135/74 06/15/24 14:22 Pulse Ox 97 06/15/24 14:22 O2 Del Method Room Air 06/15/24 14:22 FiO2 21 06/02/24 23:00 Results & Data ([facility]) Current Inpatient Medications Current Inpatient Medications: Current Inpatient Medications Acetaminophen (Acetaminophen 325 Mg Tab) 650 mg PO Q4H PRN PRN Reason: Pain or Fever Stop: 07/02/24 02:17 Last Admin: 06/15/24 10:46 Dose: 650 mg Atorvastatin Calcium (Atorvastatin 40 Mg Tab) 40 mg PO HS LACEY Stop: 07/02/24 20:59 Last Admin: 06/14/24 20:04 Dose: 40 mg Azelastine HCl (Azelastine Hcl 0.1% Nasal 200 Sprays/27,400 Mcg Btl) 2 sprays JOES BID LACEY Stop: 07/02/24 08:59 Last Admin: 06/15/24 09:14 Dose: 2 sprays Benzocaine (Benzocaine 20% (Orajel) 11.9 Gm Tube) 1 appln MT QID PRN PRN Reason: oral ulcers Stop: 07/11/24 09:07 Last Admin: 06/11/24 10:42 Dose: 1 appln Fish Oil ([place]-3 (Purified Fish Oil) 1 Gm Cap) 1 cap PO BID LACEY Stop: 07/13/24 20:59 Last Admin: 06/15/24 09:15 Dose: 1 cap Fluticasone Propionate (Fluticasone Propionate Na Spr 16 Gm Btl) 2 sprays JOSE DAILY [facility] Stop: 07/02/24 08:59 Last Admin: 06/15/24 09:14 Dose: 2 sprays Folic Acid (Folic Acid 1 Mg Tab) [facility] Stop: 07/04/24 08:59 Last Admin: 06/15/24 09:15 Dose: 1 mg Latanoprost (Latanoprost 0.005% Op Soln 2.5 Ml Btl) 1 drops OP [facility] Stop: 07/02/24 20:59 Last Admin: 06/14/24 20:05 Dose: 1 drops Levothyroxine Sodium (Levothyroxine Sodium 50 Mcg Tablet) [facility] Stop: 07/02/24 06:29 Last Admin: 06/15/24 05:26 Dose: 50 mcg Losartan Potassium (Losartan Potassium 50 Mg Tab) 50 mg PO [facility] Stop: 07/08/24 20:59 Last Admin: 06/14/24 20:04 Dose: Not Given Naphazoline HCl/Pheniramine Maleate (Naphazolin/Pheniramin Oph Soln 15 Ml Btl) 2 drops OP Q4H PRN PRN Reason: eye irritation Stop: 07/05/24 10:26 Last Admin: 06/09/24 08:57 Dose: 2 drops Nystatin (Nystatin Powder 15gm Btl) 1 appln EXT BID PRN PRN Reason: intertrigo Stop: 07/15/24 08:03 Pantoprazole Sodium (Pantoprazole 40 Mg Tab) [facility] Stop: 07/02/24 06:29 Last Admin: 06/15/24 05:26 Dose: 40 mg Polyethylene Glycol (Polyethylene (Miralax) 17 Gm Pack) 17 gm PO DAILY PRN PRN Reason: Constipation Stop: 07/10/24 11:47 Quetiapine Fumarate (Quetiapine Fumarate 25 Mg Tablet) 25 mg PO BID PRN PRN Reason: Anxiety/Agitation Stop: 07/08/24 20:59 Last Admin: 06/15/24 04:23 Dose: 25 mg Quetiapine Fumarate (Quetiapine Fumarate 300 Mg Tablet) 300 mg PO [facility] Stop: 07/09/24 20:59 Last Admin: 06/14/24 20:04 Dose: 300 mg Thiamine HCl (Thiamine Hcl 100 Mg Tab) 100 mg PO QAM LACEY; Protocol Stop: 07/04/24 08:59 Last Admin: 06/15/24 09:15 Dose: 100 mg Trazodone HCl (Trazodone Hcl 100 Mg Tab) 200 mg PO HS LACEY Stop: 07/02/24 20:59 Last Admin: 06/14/24 20:04 Dose: 200 mg (3) Alcoholic dementia Dementia severity: moderate Dementia behavioral or psychological symptom: with other behavioral disturbance Qualified Code(s): F10.27 - Alcohol dependence with alcohol-induced persisting dementia
--- NOTE | 2024-06-15 16:32 | Hospitalist Progress Note ---
Date of Service June 15, 2024 Assessment & Plan (1) Altered mental status: Plan: Patient present with encephalopathy suspected to be toxic encephalopthy from medicine mismanagement due to his memory imparement. imaging for cranial and vascular abnormalities are negative as well as imaging for concern for infectious disease are negative. Patient has had his medications of modafinil as zoLipidem held -psychiatry feels should not restart remains on trazodone and quetiapine at bedtime neurology consult Dr. Dawn recommends dosing reductions Pt with history of memory loss and mental illness, has been in [facility] health unit as inpt in the past, Psychiatry eval:, in my opinion patient does not have decision making capacity to determine appropriate placement upon discharge given his acute confused state, poor orientation and inability to engage in discussion regarding placement. He would benefit from placement in a higher level of care. psychiatry re eval 06/15: Patient presents on-going persecutory delusions and there is some concern he may act on these thoughts. Reports recent insomnia, auditory hallucinations. Concern for patient's safety with independent or semi independent living situation and may benefit from admission to geriatric psy chiatry for further management and appropriate disposition. Collateral gathered from family and recommend inpatient geriatric psychiatry; pt is agreeable with this plan as well. Concussion with unknown loss of consciousness (2) Elevated troponin: Plan: Elevated troponin without significant trend we will assume this is demand ischemia at this time. No acute EKG changes on presentation Echocardiogram on presentation showed normal LV size and function no regional wall motion abnormalities no significant valvular abnormalities Troponins are 66-61-55-56. (3) History of alcohol abuse: Plan: Patient history of alcohol abuse with his placement risk for Warnicke's encephalopathy. He was given thiamine after banana bag in the emergency department. No acute signs of alcohol withdrawal at the present time (4) Obstructive sleep apnea: Plan: Patient follows with sleep clinic for which she takes his modafinil continue CPAP at night Typically 8 cm of water Plan Reportedly patient has a POLST form on file and request to be DNR ask for testosterone injections, usually has 80 mg once a month Admission and Anticipated Discharge Date Admission Date: June 02, 2024 Subjective The patient is awake and alert and ambulating in the room at the time of my examination. pt has multiple questions regarding his disposition no physical complaints Physical Exam Physical Exam: Pleasant and cooperative, very forgetful and tangential cardiac is regular lungs clear oriented x 1, non focal neurol exam Results & Data Results & Data Vital Signs (Past 12 Hours) Vital Signs Temp Pulse Resp BP Pulse Ox O2 Del Method 06/15/24 14:22 97.5 F L 75 18 135/74 97 Room Air 06/15/24 07:01 97.3 F L 67 18 114/71 100 Room Air PG Care Time/CCT Total # of Minutes Spent Total Time Spent with Patient: Total time spent is greater than 50% in coordination of care (as documented) at patient's floor/unit and/or counseling patient: Coding Level of Care Code 20587 SUB INP/OBS CARE 2/35MIN Diagnoses Altered mental status R41.82 Elevated troponin R79.89 History of alcohol abuse F10.11 Obstructive sleep apnea G47.33
[2024-06-15] MEDS: MELATONIN 3 MG TAB PO ONE (20:11)
--- NOTE | 2024-06-16 17:27 | Hospitalist Progress Note ---
Date of Service June 16, 2024 Assessment & Plan (1) Altered mental status: Plan: Patient present with encephalopathy suspected to be toxic encephalopathy from medicine mismanagement due to his memory imparement. imaging for cranial and vascular abnormalities are negative as well as imaging for concern for infectious disease are negative. Patient has had his medications of modafinil as zolpidem held -psychiatry feels should not restart remains on trazodone and quetiapine at bedtime neurology consult Dr. Dawn recommends dosing reductions Pt with history of memory loss and mental illness, has been in Behavioral health unit as inpt in the past, Psychiatry eval:, in my opinion patient does not have decision making capacity to determine appropriate placement upon discharge given his acute confused state, poor orientation and inability to engage in discussion regarding placement. He would benefit from placement in a higher level of care. psychiatry re eval 06/15: Patient presents on-going persecutory delusions and there is some concern he may act on these thoughts. Reports recent insomnia, auditory hallucinations. Concern for patient's safety with independent or semi independent living situation and may benefit from admission to geriatric psyc hiatry for further management and appropriate disposition. Collateral gathered from family and recommend inpatient geriatric psychiatry; pt is agreeable with this plan as well. so far has been refused by 2 [facility] facilities Concussion with unknown loss of consciousness (2) Elevated troponin: Plan: Elevated troponin without significant trend we will assume this is demand ischemia at this time. No acute EKG changes on presentation Echocardiogram on presentation showed normal LV size and function no regional wall motion abnormalities no significant valvular abnormalities Troponins are 66-61-55-56. (3) History of alcohol abuse: Plan: Patient history of alcohol abuse with his placement risk for Warnicke's encephalopathy. He was given thiamine after banana bag in the emergency department. No acute signs of alcohol withdrawal at the present time (4) Obstructive sleep apnea: Plan: Patient follows with sleep clinic for which she takes his modafinil continue CPAP at night Typically 8 cm of water Plan Reportedly patient has a POLST form on file and request to be DNR ask for testosterone injections, usually has 80 mg once a month Admission and Anticipated Discharge Date Admission Date: June 02, 2024 Subjective The patient is awake and alert and ambulating in the room at the time of my examination. pt has multiple questions regarding his disposition no physical complaints Physical Exam Physical Exam: Pleasant and cooperative, very forgetful and tangential cardiac is regular lungs clear oriented x 1, non focal neurol exam Results & Data Results & Data Vital Signs (Past 12 Hours) Vital Signs Temp Pulse Resp BP BP Pulse Ox O2 Del Method 06/16/24 14:51 97.7 F 70 18 135/76 97 Room Air 06/16/24 07:38 97.5 F L 79 18 116/74 99 Room Air PG Care Time/CCT Total # of Minutes Spent Total Time Spent with Patient: Total time spent is greater than 50% in coordination of care (as documented) at patient's floor/unit and/or counseling patient: Coding Level of Care Code 90095 SUB INP/OBS CARE 10/15MIN Diagnoses Altered mental status R41.82 Elevated troponin R79.89 History of alcohol abuse F10.11 Obstructive sleep apnea G47.33
[2024-06-16] MEDS: DICLOFENAC SOD 1% GEL 100 GM TUBE EXT PRN (19:39)
[2024-06-17] MEDS: COUGH DROP (SUGAR FREE) LOZ 24 LOZ/1 BOX BUCCAL ONE (02:33)
[2024-06-17] MEDS: MELATONIN 3 MG TAB PO PRN (02:33)
--- NOTE | 2024-06-17 13:33 | Hospitalist Progress Note ---
Date of Service June 17, 2024 Assessment & Plan (1) Alcoholic dementia: (2) History of alcohol abuse: (3) Hypertension: (4) Wernickes encephalopathy: (5) Hypothyroidism: (6) Obstructive sleep apnea: Plan 69-year-old male with past medical history of hypertension, hypothyroidism, cognitive impairment, LJ close brought to the ED by his brother for worsening confusion, head trauma and facial trauma. Patient's neighbor found patient's glasses, wallet and other possessions on the ground and patient had no recollection or memory of these events. #Acute encephalopathy #Suspected Wernicke's encephalopathy #Alcohol related dementia #History of alcohol use disorder Outpatient psychiatrist is Dr. Raman Neurology and psychiatry saw the patient Neurology thinks patient has Wernicke's encephalopathy in setting of alcohol dementia TSH is 0.394 B12 is 521 As per neurology, patient does not have decision-making capacity Psychiatry recommendations reviewed Psychiatry saw the patient on 06/09/2024 and did not feel he has decisional making capacity As per psychiatry recommendations, continue Seroquel 300 mg p.o. nightly As per psychiatry recommendations, use Seroquel 25 mg p.o. twice daily as needed for anxiety/agitation and if patient has a behavioral emergency to use olanzapine 2.5 mg ODT or IM Neurology (Dr. Juan Dawn) has recommended avoiding using anticholinergic and antidopaminergic medications and to continue supportive nutritional care. As per neurology, he will need long-term placement and is not safe to be by himself at home and have advised against driving Neurology has recommended patient follow-up with them as outpatient with Dr. Juan Dawn [facility] Psychiatrist (Dr. Ashish Fuentes) saw the patient in follow-up on 06/15/2024 and recommended he would benefit from admission to geriatric psychiatry for further management. Subsequently behavioral health unit followed up with patient and he no longer meets criteria for geriatric psychiatry and discharge planning to [facility] is being pursued by case planner Patient will need follow-up with neurology as outpatient and also with his own psychiatrist Dr. Raman as outpatient on discharge #Essential hypertension #Elevated troponin #Hyperlipidemia Elevated troponin suspected to be from demand ischemia with no chest pain or EKG changes on presentation Echocardiogram showed normal LV size and function and no regional wall motion abnormalities, no significant valvular abnormalities Continue losartan 50 mg p.o. nightly Continue atorvastatin Monitor vital signs #Hypothyroidism TSH is 0.394 Continue levothyroxine 50 mcg p.o. daily #Sleep apnea CPAP at bedtime CODE STATUS: DNR/DNI DVT prophylaxis: Patient is ambulatory Patient is medically stable for discharge to [facility] when bed available Admission and Anticipated Discharge Date Admission Date: June 02, 2024 Subjective Patient seen and examined Smiling, offers no new complaints Awaiting placement Review of Systems Review of Systems: As per HPI Physical Exam Physical Exam: General: Cooperative Psych: Awake and oriented to place and person HEENT: Anicteric sclera, moist oral mucosa CVS: Regular rate and rhythm Lungs: Bilateral air entry, no wheezing noted Abdomen: Soft, nontender, no rebound, no guarding Ext: No lower extremity edema, no calf tenderness Results & Data Results & Data Vital Signs (Past 12 Hours) Vital Signs Temp Pulse Resp BP Pulse Ox O2 Del Method 06/17/24 08:57 77 120/65 06/17/24 08:46 36.5 C 70 18 114/66 99 Room Air PG Care Time/CCT Total # of Minutes Spent Total Time Spent with Patient: Total time spent is greater than 50% in coordination of care (as documented) at patient's floor/unit and/or counseling patient: Coding Level of Care Code 91630 SUB INP/OBS CARE 10/15MIN Diagnoses Moderate dementia associated with alcoholism, with other behavioral disturbance F10.27 Dementia severity: moderate Dementia behavioral or psychological symptom: with other behavioral disturbance History of alcohol abuse F10.11 Hypertension I10 Wernickes encephalopathy E51.2 Other specified hypothyroidism E03.8 Hypothyroidism type: other Obstructive sleep apnea G47.33 (1) Alcoholic dementia Dementia severity: moderate Dementia behavioral or psychological symptom: with other behavioral disturbance Qualified Code(s): F10.27 - Alcohol dependence with alcohol-induced persisting dementia (5) Hypothyroidism Hypothyroidism type: other Qualified Code(s): E03.8 - Other specified hypothyroidism
--- NOTE | 2024-06-18 12:38 | Hospitalist Progress Note ---
Date of Service June 18, 2024 Assessment & Plan (1) Alcoholic dementia: (2) History of alcohol abuse: (3) Hypertension: (4) Wernickes encephalopathy: (5) Hypothyroidism: (6) Obstructive sleep apnea: Plan 69-year-old male with past medical history of hypertension, hypothyroidism, cognitive impairment, LJ close brought to the ED by his brother for worsening confusion, head trauma and facial trauma. Patient's neighbor found patient's glasses, wallet and other possessions on the ground and patient had no recollection or memory of these events. #Acute encephalopathy #Suspected Wernicke's encephalopathy #Alcohol related dementia #History of alcohol use disorder Outpatient psychiatrist is Dr. Raman Neurology and psychiatry saw the patient Neurology thinks patient has Wernicke's encephalopathy in setting of alcohol dementia TSH is 0.394 B12 is 521 As per neurology, patient does not have decision-making capacity Psychiatry recommendations reviewed Psychiatry saw the patient on 06/09/2024 and did not feel he has decisional making capacity As per psychiatry recommendations, continue Seroquel 300 mg p.o. nightly As per psychiatry recommendations, use Seroquel 25 mg p.o. twice daily as needed for anxiety/agitation and if patient has a behavioral emergency to use olanzapine 2.5 mg ODT or IM Neurology (Dr. Juan Dawn) has recommended avoiding using anticholinergic and antidopaminergic medications and to continue supportive nutritional care. As per neurology, he will need long-term placement and is not safe to be by himself at home and have advised against driving Neurology has recommended patient follow-up with them as outpatient with Dr. Juan Dawn [facility] is [facility] Psychiatrist (Dr. Ashish Fuentes) saw the patient in follow-up on 06/15/2024 and recommended he would benefit from admission to geriatric psychiatry for further management. Subsequently behavioral health unit followed up with patient and he no longer meets criteria for geriatric psychiatry and discharge planning to [facility] is being pursued by pillowcase cutter Patient will need follow-up with neurology as outpatient and also with his own psychiatrist Dr. Raman as outpatient on discharge #Essential hypertension #Elevated troponin #Hyperlipidemia Elevated troponin suspected to be from demand ischemia with no chest pain or EKG changes on presentation Echocardiogram showed normal LV size and function and no regional wall motion abnormalities, no significant valvular abnormalities Continue losartan 50 mg p.o. nightly Continue atorvastatin Monitor vital signs #Hypothyroidism TSH is 0.394 Continue levothyroxine 50 mcg p.o. daily #Sleep apnea CPAP at bedtime CODE STATUS: DNR/DNI DVT prophylaxis: Patient is ambulatory Patient is medically stable for discharge to [facility] when bed available Admission and Anticipated Discharge Date Admission Date: June 02, 2024 Subjective Patient seen and examined Patient resting comfortably He had questions about regular coffee versus decaf coffee Denies any new complaints He ate all of his lunch today without any issues Review of Systems Review of Systems: As per HPI Physical Exam Physical Exam: General: Cooperative Psych: Awake and oriented to place and person HEENT: Anicteric sclera, moist oral mucosa CVS: Regular rate and rhythm Lungs: Bilateral air entry, no wheezing noted Abdomen: Soft, nontender, no rebound, no guarding Ext: No lower extremity edema, no calf tenderness Results & Data Results & Data Vital Signs (Past 12 Hours) Vital Signs Temp Pulse Resp BP Pulse Ox O2 Del Method 06/18/24 07:40 36.4 C L 63 18 129/71 99 Room Air PG Care Time/CCT Total # of Minutes Spent Total Time Spent with Patient: Total time spent is greater than 50% in coordination of care (as documented) at patient's floor/unit and/or counseling patient: Coding Level of Care Code 32112 SUB INP/OBS CARE /MIN Diagnoses Moderate dementia associated with alcoholism, with other behavioral disturbance F10.27 Dementia behavioral or psychological symptom: with other behavioral disturbance Dementia severity: moderate History of alcohol abuse F10.11 Hypertension I10 Wernickes encephalopathy E51.2 Other specified hypothyroidism E03.8 Hypothyroidism type: other Obstructive sleep apnea G47.33 (1) Alcoholic dementia Dementia behavioral or psychological symptom: with other behavioral disturbance Dementia severity: moderate Qualified Code(s): F10.27 - Alcohol dependence with alcohol-induced persisting dementia (5) Hypothyroidism Hypothyroidism type: other Qualified Code(s): E03.8 - Other specified hypothyroidism
--- NOTE | 2024-06-19 12:21 | Hospitalist Progress Note ---
Date of Service June 19, 2024 Assessment & Plan (1) Alcoholic dementia: (2) History of alcohol abuse: (3) Hypertension: (4) Wernickes encephalopathy: (5) Hypothyroidism: (6) Obstructive sleep apnea: Plan 69-year-old male with past medical history of hypertension, hypothyroidism, cognitive impairment, LJ close brought to the ED by his brother for worsening confusion, head trauma and facial trauma. Patient's neighbor found patient's glasses, wallet and other possessions on the ground and patient had no recollection or memory of these events. #Acute encephalopathy #Suspected Wernicke's encephalopathy #Alcohol related dementia #History of alcohol use disorder Outpatient psychiatrist is Dr. Raman Neurology and psychiatry saw the patient Neurology thinks patient has Wernicke's encephalopathy in setting of alcohol dementia TSH is 0.394 B12 is 521 As per neurology, patient does not have decision-making capacity Psychiatry recommendations reviewed Psychiatry saw the patient on 06/09/2024 and did not feel he has decisional making capacity As per psychiatry recommendations, continue Seroquel 300 mg p.o. nightly As per psychiatry recommendations, use Seroquel 25 mg p.o. twice daily as needed for anxiety/agitation and if patient has a behavioral emergency to use olanzapine 2.5 mg ODT or IM Neurology (Dr. Juan Dawn) has recommended avoiding using anticholinergic and antidopaminergic medications and to continue supportive nutritional care. As per neurology, he will need long-term placement and is not safe to be by himself at home and have advised against driving Neurology has recommended patient follow-up with them as outpatient with Dr. Juan Dawn [facility] is [facility] Psychiatrist (Dr. Ashish Fuentes) saw the patient in follow-up on 06/15/2024 and recommended he would benefit from admission to geriatric psychiatry for further management. Subsequently behavioral health unit followed up with patient and he no longer meets criteria for geriatric psychiatry and discharge planning to [facility] is being pursued by case management coordinator Patient will need follow-up with neurology as outpatient and also with his own psychiatrist Dr. Raman as outpatient on discharge #Essential hypertension #Elevated troponin #Hyperlipidemia Elevated troponin suspected to be from demand ischemia with no chest pain or EKG changes on presentation Echocardiogram showed normal LV size and function and no regional wall motion abnormalities, no significant valvular abnormalities Continue losartan 50 mg p.o. nightly Continue atorvastatin Monitor vital signs #Hypothyroidism TSH is 0.394 Continue levothyroxine 50 mcg p.o. daily #Sleep apnea CPAP at bedtime CODE STATUS: DNR/DNI DVT prophylaxis: Patient is ambulatory Patient is medically stable for discharge to [facility] when bed available Admission and Anticipated Discharge Date Admission Date: June 02, 2024 Subjective Patient seen and examined He is walking around in the room He is inquiring about exercise and I told him he can walk around and he is agreeable to getting exercise that way He denies any other new complaints He is smiling and cooperative and tolerating oral diet without any issues Review of Systems Review of Systems: As per HPI Physical Exam Physical Exam: General: Cooperative Psych: Awake and oriented to place and person HEENT: Anicteric sclera, moist oral mucosa CVS: Regular rate and rhythm Lungs: Bilateral air entry, no wheezing noted Abdomen: Soft, nontender, no rebound, no guarding Ext: No lower extremity edema, no calf tenderness Results & Data Results & Data Vital Signs (Past 12 Hours) Vital Signs Temp Pulse Resp BP Pulse Ox O2 Del Method 06/19/24 07:14 36.4 C L 81 16 115/76 97 Room Air PG Care Time/CCT Total # of Minutes Spent Total Time Spent with Patient: Total time spent is greater than 50% in coordination of care (as documented) at patient's floor/unit and/or counseling patient: Coding Level of Care Code 25826 SUB INP/OBS CARE /MIN Diagnoses Moderate dementia associated with alcoholism, with other behavioral disturbance F10.27 Dementia behavioral or psychological symptom: with other behavioral disturbance Dementia severity: moderate History of alcohol abuse F10.11 Hypertension I10 Wernickes encephalopathy E51.2 Other specified hypothyroidism E03.8 Hypothyroidism type: other Obstructive sleep apnea G47.33 (1) Alcoholic dementia Dementia behavioral or psychological symptom: with other behavioral disturbance Dementia severity: moderate Qualified Code(s): F10.27 - Alcohol dependence with alcohol-induced persisting dementia (5) Hypothyroidism Hypothyroidism type: other Qualified Code(s): E03.8 - Other specified hypothyroidism
[2024-06-19] MEDS: HYDROCORTISONE 1% CRM 30 GM TUBE EXT PRN (20:30)
--- NOTE | 2024-06-20 13:31 | Hospitalist Progress Note ---
Date of Service June 20, 2024 Assessment & Plan (1) Alcoholic dementia: (2) History of alcohol abuse: (3) Hypertension: (4) Wernickes encephalopathy: (5) Hypothyroidism: (6) Obstructive sleep apnea: Plan 69-year-old male with past medical history of hypertension, hypothyroidism, cognitive impairment, LJ close brought to the ED by his brother for worsening confusion, head trauma and facial trauma. Patient's neighbor found patient's glasses, wallet and other possessions on the ground and patient had no recollection or memory of these events. #Acute encephalopathy #Suspected Wernicke's encephalopathy #Alcohol related dementia #History of alcohol use disorder Outpatient psychiatrist is Dr. Raman Neurology and psychiatry saw the patient Neurology thinks patient has Wernicke's encephalopathy in setting of alcohol dementia TSH is 0.394 B12 is 521 As per neurology, patient does not have decision-making capacity Psychiatry recommendations reviewed Psychiatry saw the patient on 06/09/2024 and did not feel he has decisional making capacity As per psychiatry recommendations, continue Seroquel 300 mg p.o. nightly As per psychiatry recommendations, use Seroquel 25 mg p.o. twice daily as needed for anxiety/agitation and if patient has a behavioral emergency to use olanzapine 2.5 mg ODT or IM Neurology (Dr. Juan Dawn) has recommended avoiding using anticholinergic and antidopaminergic medications and to continue supportive nutritional care. As per neurology, he will need long-term placement and is not safe to be by himself at home and have advised against driving Neurology has recommended patient follow-up with them as outpatient with Dr. Juan Dawn [facility] is [facility] Psychiatrist (Dr. Ashish Fuentes) saw the patient in follow-up on 06/15/2024 and recommended he would benefit from admission to geriatric psychiatry for further management. Subsequently behavioral health unit followed up with patient and he no longer meets criteria for geriatric psychiatry and discharge planning to [facility] is being pursued by spring encaser Patient will need follow-up with neurology as outpatient and also with his own psychiatrist Dr. Raman as outpatient on discharge #Essential hypertension #Elevated troponin #Hyperlipidemia Elevated troponin suspected to be from demand ischemia with no chest pain or EKG changes on presentation Echocardiogram showed normal LV size and function and no regional wall motion abnormalities, no significant valvular abnormalities Continue losartan 50 mg p.o. nightly Continue atorvastatin Monitor vital signs #Hypothyroidism TSH is 0.394 Continue levothyroxine 50 mcg p.o. daily #Sleep apnea CPAP at bedtime CODE STATUS: DNR/DNI DVT prophylaxis: Patient is ambulatory Patient is medically stable for discharge to [facility] when bed available: He met with liaison from [facility] today Admission and Anticipated Discharge Date Admission Date: June 02, 2024 Subjective Patient seen and examined Resting comfortably, sitting in a chair and talking to the liaison from [facility] Deepak Overall feels better He had questions about whether he could eat peanuts: Patient states he has no allergies and they are unsalted peanuts Review of Systems Review of Systems: As per HPI Physical Exam Physical Exam: General: Cooperative Psych: Awake and oriented to place and person HEENT: Anicteric sclera, moist oral mucosa CVS: Regular rate and rhythm Lungs: Bilateral air entry, no wheezing noted Abdomen: Soft, nontender, no rebound, no guarding Ext: No lower extremity edema, no calf tenderness Results & Data Results & Data Vital Signs (Past 12 Hours) Vital Signs Temp Pulse Resp BP Pulse Ox O2 Del Method 06/20/24 07:38 36.3 C L 61 18 123/78 99 Room Air PG Care Time/CCT Total # of Minutes Spent Total Time Spent with Patient: Total time spent is greater than 50% in coordination of care (as documented) at patient's floor/unit and/or counseling patient: Coding Level of Care Code 27960 SUB INP/OBS CARE 10/15MIN Diagnoses Moderate dementia associated with alcoholism, with other behavioral disturbance F10.27 Dementia behavioral or psychological symptom: with other behavioral disturbance Dementia severity: moderate History of alcohol abuse F10.11 Hypertension I10 Wernickes encephalopathy E51.2 Other specified hypothyroidism E03.8 Hypothyroidism type: other Obstructive sleep apnea G47.33 (1) Alcoholic dementia Dementia behavioral or psychological symptom: with other behavioral disturbance Dementia severity: moderate Qualified Code(s): F10.27 - Alcohol dependence with alcohol-induced persisting dementia (5) Hypothyroidism Hypothyroidism type: other Qualified Code(s): E03.8 - Other specified hypothyroidism
[2024-06-20] MEDS: hydrOXYzine HCl 25 MG TAB PO STA (18:20)
[2024-06-20] MEDS: OLANZAPINE 2.5 MG TAB PO STA (23:26)
--- NOTE | 2024-06-21 14:45 | Hospitalist Progress Note ---
Date of Service June 21, 2024 Assessment & Plan (1) Alcoholic dementia: (2) History of alcohol abuse: (3) Hypertension: (4) Wernickes encephalopathy: (5) Hypothyroidism: (6) Obstructive sleep apnea: Plan 69-year-old male with past medical history of hypertension, hypothyroidism, cognitive impairment, LJ close brought to the ED by his brother for worsening confusion, head trauma and facial trauma. Patient's neighbor found patient's glasses, wallet and other possessions on the ground and patient had no recollection or memory of these events. #Acute encephalopathy #Suspected Wernicke's encephalopathy #Alcohol related dementia #History of alcohol use disorder Outpatient psychiatrist is Dr. Raman Neurology and psychiatry saw the patient Neurology thinks patient has Wernicke's encephalopathy in setting of alcohol dementia TSH is 0.394 B12 is 521 As per neurology, patient does not have decision-making capacity Psychiatry recommendations reviewed Psychiatry saw the patient on 06/09/2024 and did not feel he has decisional making capacity As per psychiatry recommendations, continue Seroquel 300 mg p.o. nightly As per psychiatry recommendations, use Seroquel 25 mg p.o. twice daily as needed for anxiety/agitation and if patient has a behavioral emergency to use olanzapine 2.5 mg ODT or IM Neurology (Dr. Juan Dawn) has recommended avoiding using anticholinergic and antidopaminergic medications and to continue supportive nutritional care. As per neurology, he will need long-term placement and is not safe to be by himself at home and have advised against driving Neurology has recommended patient follow-up with them as outpatient with Dr. Juan Dawn [facility] Psychiatrist (Dr. Ashish Fuentes) saw the patient in follow-up on 06/15/2024 and recommended he would benefit from admission to geriatric psychiatry for further management. Subsequently behavioral health unit followed up with patient and he no longer meets criteria for geriatric psychiatry and discharge planning to [facility] is being pursued by case operator Patient will need follow-up with neurology as outpatient and also with his own psychiatrist Dr. Raman as outpatient on discharge #Essential hypertension #Elevated troponin #Hyperlipidemia Elevated troponin suspected to be from demand ischemia with no chest pain or EKG changes on presentation Echocardiogram showed normal LV size and function and no regional wall motion abnormalities, no significant valvular abnormalities Continue losartan 50 mg p.o. nightly Continue atorvastatin Monitor vital signs #Hypothyroidism TSH is 0.394 Continue levothyroxine 50 mcg p.o. daily #Sleep apnea CPAP at bedtime CODE STATUS: DNR/DNI DVT prophylaxis: Patient is ambulatory Patient is medically stable for discharge to [facility] celebration [place] when bed available: Likely , 06/23/2024 based on case management notes Admission and Anticipated Discharge Date Admission Date: June 02, 2024 Subjective Patient seen and examined Resting comfortably He is complaining of dry mouth and states lozenges help He has a whole bag of lozenges He is anxious and feels his brother stealing from him and apparently called the police He feels much better from an anxiety perspective today Review of Systems Review of Systems: As per HPI Physical Exam Physical Exam: General: Cooperative Psych: Awake and oriented to place and person HEENT: Anicteric sclera, moist oral mucosa CVS: Regular rate and rhythm Lungs: Bilateral air entry, no wheezing noted Abdomen: Soft, nontender, no rebound, no guarding Ext: No lower extremity edema, no calf tenderness Results & Data Results & Data Vital Signs (Past 12 Hours) Vital Signs Temp Pulse Resp BP Pulse Ox O2 Del Method 06/21/24 07:25 37.0 C 68 16 119/71 98 Room Air PG Care Time/CCT Total # of Minutes Spent Total Time Spent with Patient: Total time spent is greater than 50% in coordination of care (as documented) at patient's floor/unit and/or counseling patient: Coding Level of Care Code 11834 SUB INP/OBS CARE 10/15MIN Diagnoses Moderate dementia associated with alcoholism, with other behavioral disturbance F10.27 Dementia behavioral or psychological symptom: with other behavioral disturbance Dementia severity: moderate History of alcohol abuse F10.11 Hypertension I10 Wernickes encephalopathy E51.2 Other specified hypothyroidism E03.8 Hypothyroidism type: other Obstructive sleep apnea G47.33 (1) Alcoholic dementia Dementia behavioral or psychological symptom: with other behavioral disturbance Dementia severity: moderate Qualified Code(s): F10.27 - Alcohol dependence with alcohol-induced persisting dementia (5) Hypothyroidism Hypothyroidism type: other Qualified Code(s): E03.8 - Other specified hypothyroidism
[2024-06-22 06:33] LABS: Basophils # (auto) 0.04 K/uL (0.00-0.20); Basophils % (auto) 0.7 %; Eosinophils # (auto) 0.26 K/uL (0.00-0.50); Eosinophils % (auto) 4.7 %; Hemoglobin 14.7 g/dl (14.0-18.0); Immature Granulocytes # (auto) 0.02 K/uL (0.01-0.20); Immature Granulocytes % (auto) 0.4 %; Lymphocytes # (auto) 1.64 K/uL (1.20-3.40); Lymphocytes % (auto) 29.5 %; Mean Corpuscular Hemoglobin 30.8 pg (25.0-34.0); Mean Corpuscular Hgb Conc 34.2 g/dL (32.0-36.0); Mean Corpuscular Volume 90.1 fL (80.0-100.0); Mean Platelet Volume 9.4 fL (9.4-12.4); Monocytes # (auto) 0.48 K/uL (0.11-0.59); Monocytes % (auto) 8.6 %; Neutrophils # (auto) 3.11 K/uL (1.40-6.50); Neutrophils % (auto) 56.1 %; Platelet Count 268 K/uL (130-400); RDW Coefficient of Variation 13.9 % (11.5-14.5); RDW Standard Deviation 46.3 fL (36.4-46.3); Red Blood Count 4.77 M/uL (4.70-6.10); White Blood Count 5.55 K/ul (4.8-10.8)
[2024-06-22 06:45] LABS: Albumin Globulin Ratio 1.6 (0.9-2); Albumin Level 4.6 gm/dl (3.4-5.0); BUN Creatinine Ratio 26.1 (10-20); Calcium 9.8 mg/dl (8.6-10.3); Creatinine Clr Calc Pharmacy 58.7 ml/min; Est GFR (African American) 74.8 ml/min; Est GFR (Non-African American) 64.6 ml/min; Globulin 2.8 gm/dl (2.5-4.0); Total Protein 7.4 gm/dl (6.0-8.3)
[2024-06-22 08:05] VITALS: RESP 16
[2024-06-22] MEDS: FEXOFENADINE HCL 180 MG TAB PO SCH (18:33)
[2024-06-22] MEDS: NAPHAZOLIN/PHENIRAMIN OPH SOLN 15 ML BTL OPB SCH (18:34)
[2024-06-23] MEDS: diphenhydrAMINE 50 MG/ML VIAL IV STA (00:28)
[2024-06-23] MEDS: diphenhydrAMINE Capsule 25 MG CAP PO ONE (01:09)
[2024-06-23] MEDS: SODIUM CHLORIDE 0.65% NA SOLN 45 ML (OCEAN) PRN (01:12)
--- NOTE | 2024-06-23 02:22 | Hospitalist Progress Note ---
Date of Service June 22, 2024 Assessment & Plan (1) Alcoholic dementia: Plan: Outpatient psychiatrist is Dr. Raman Neurology and psychiatry saw the patient multiple times during the prolonged hospitalization Neurology thinks patient has Wernicke's encephalopathy in setting of alcohol dementia As per neurology, patient does not have decision-making capacity TSH is 0.394 B12 is 521 Psychiatry saw the patient on 06/09/2024 and did not feel he has decisional making capacity Continue Seroquel 300 mg p.o. nightly Seroquel 25 mg p.o. twice daily as needed for anxiety/agitation and if patient has a behavioral emergency to use olanzapine 2.5 mg ODT or IM Neurology (Dr. Juan Dawn) has recommended avoiding using anticholinergic and antidopaminergic medications and to continue supportive nutritional care As per neurology, he will need long-term placement and is not safe to be by himself at home and have advised against driving Patient will need follow-up with [facility] neurology as outpatient and also with his own psychiatrist Dr. Raman (2) History of alcohol abuse: (3) Hypertension: Plan: cont losartan daily BPs largely controlled (4) Wernickes encephalopathy: Plan: suspected cont thiamine 100mg daily (5) Hypothyroidism: Plan: TSH is 0.394 in 05/2024 Continue levothyroxine 50 mcg p.o. daily (6) Obstructive sleep apnea: Plan: Cont CPAP Has home unit at bedtime (7) Chronic sinusitis: Plan: MRI brain in early May 2024 with chronic maxillary, ethmoid and right frontal sinusitis but no acute sinusitis He is already on flonase as well as azelastine Add brenden 180mg daily Add saline spray prn (8) Blurry vision: Plan: Suspect allergic conjunctivitis Both eyes irritated today Schedule naphazoline/pheniramine 2 drops each eye QID scheduled for a day or two BSG was 101 Nothing to suggest retinal detachment, vitreous hemorrhage, etc. 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 blurry vision for much of the afternoon; b/l. No double vision, no visual disturbance, no flashes of light, no visual field cuts. His glasses are about 1 year old. He does have mild eye irritation b/l in the setting of severe chronic allergies and nasal congestion. 2. he asks why he won't be allowed to drive after getting out of the hospital. 3. he asks why he isn't allowed to have his personal computer and his cell phone. He states "my brother told me that the FBI have these things." 4. he asks if he can go home first before going to [place] [facility] "so I can get things." per staff he is walking in the hallways, eating well, drinking well BSG was 101 during the visit Review of Systems Review of Systems: HENT - nasal congestion pulm - no chest congestion or dyspnea GI - no abd pain or n/v cv - no chest pain Physical Exam Physical Exam: gen - sitting in chair comfortably, NAD eyes - conjunctival injection b/l with allergic shiners b/l neck - no JVD heart - RRR, s1 s2, no murmur lungs - CTA B/l abd - soft NT ND BS+ ext - no edema, pulses 2+ b/l Results & Data Results & Data Vital Signs (Past 12 Hours) Vital Signs Temp Pulse Resp BP Pulse Ox O2 Del Method 06/22/24 20:22 36.7 C 73 16 116/75 99 Room Air 06/22/24 20:20 Nasal Cannula 06/22/24 14:59 36.3 C L 76 16 148/78 H 98 Room Air Laboratory Results Laboratory Results 06/22/24 06/22/24 06:06 16:56 WBC 5.55 RBC 4.77 Hgb 14.7 Hct 43.0 MCV 90.1 MCH 30.8 MCHC 34.2 RDW Std Deviation 46.3 RDW Coeff of Elsie 13.9 Plt Count 268 MPV 9.4 Immature Gran % (Auto) 0.4 Neut % (Auto) 56.1 Lymph % (Auto) 29.5 [place] % (Auto) 8.6 Eos % (Auto) 4.7 Baso % (Auto) 0.7 Neut # (Auto) 3.11 Lymph # (Auto) 1.64 [place] # (Auto) 0.48 Eos # (Auto) 0.26 Baso # (Auto) 0.04 Immature Gran # (Auto) 0.02 Sodium 138 Potassium 4.0 Chloride 103 Carbon Dioxide 29 Anion Gap 6 BUN 30 H Creatinine 1.15 Est Cr Clr Drug Dosing 58.7 Est GFR ( Amer) 74.8 Est GFR (Non-Af Amer) 64.6 BUN/Creatinine Ratio 26.1 H Glucose 97 POC Glucose 101 H Calcium 9.8 Magnesium 2.0 Total Bilirubin 1.0 AST 20 ALT 30 Alkaline Phosphatase 59 Total Protein 7.4 Albumin 4.6 Globulin 2.8 Albumin/Globulin Ratio 1.6 PG Care Time/CCT Total # of Minutes Spent Total Time Spent with Patient: Total time spent is greater than 50% in coordination of care (as documented) at patient's floor/unit and/or counseling patient: Coding Level of Care Code 13749 SUB INP/OBS CARE 3/50MIN Diagnoses Moderate dementia associated with alcoholism, with other behavioral disturbance F10.27 Dementia severity: moderate Dementia behavioral or psychological symptom: with other behavioral disturbance History of alcohol abuse F10.11 Hypertension I10 Wernickes encephalopathy E51.2 Other specified hypothyroidism E03.8 Hypothyroidism type: other Obstructive sleep apnea G47.33 Chronic sinusitis J32.9 Blurry vision H53.8 (1) Alcoholic dementia Dementia severity: moderate Dementia behavioral or psychological symptom: with other behavioral disturbance Qualified Code(s): F10.27 - Alcohol dependence with alcohol-induced persisting dementia (5) Hypothyroidism Hypothyroidism type: other Qualified Code(s): E03.8 - Other specified hypothyroidism
[2024-06-23 07:11] VITALS: BP 130/74; PULSE 71; TEMP 97.5; O2SAT 98
--- NOTE | 2024-06-23 10:36 | Discharge Summary ---
Discharge Summary Date of Service June 23, 2024 Principal Dx & Hospital Course #1 = Principal Diagnosis (1) Alcoholic dementia: Outpatient psychiatrist is Dr. Raman Neurology and psychiatry saw the patient multiple times during the prolonged hospitalization Neurology thinks patient has Wernicke's encephalopathy in setting of alcohol dementia As per neurology, patient does not have decision-making capacity TSH is 0.394 B12 is 521 Psychiatry saw the patient on 06/09/2024 and did not feel he has decisional making capacity Continue Seroquel 300 mg p.o. nightly Seroquel 25 mg p.o. twice daily as needed for anxiety/agitation and if patient has a behavioral emergency to use olanzapine 2.5 mg ODT or IM Neurology (Dr. Juan Dawn) has recommended avoiding using anticholinergic and antidopaminergic medications and to continue supportive nutritional care As per neurology, he will need long-term placement and is not safe to be by himself at home and have advised against driving Patient will need follow-up with [facility] neurology as outpatient and also with his own psychiatrist Dr. Raman (2) History of alcohol abuse: (3) Hypertension: cont losartan daily BPs largely controlled (4) Wernickes encephalopathy: suspected cont thiamine 100mg daily (5) Hypothyroidism: TSH is 0.394 in 05/2024 Continue levothyroxine 50 mcg p.o. daily (6) Obstructive sleep apnea: Cont CPAP Has home unit at bedtime (7) Chronic sinusitis: MRI brain in early May 2024 with chronic maxillary, ethmoid and right frontal sinusitis but no acute sinusitis He is already on flonase as well as azelastine Add brenden 180mg daily Add saline spray prn (8) Blurry vision: Suspect allergic conjunctivitis Both eyes irritated today Schedule naphazoline/pheniramine 2 drops each eye QID scheduled for a day or two BSG was 101 Nothing to suggest retinal detachment, vitreous hemorrhage, etc. 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 The patient presents as noted above. He is not able to contribute to his HPI or review of systems, due to an acute worsening of his chronic neurocognitive disorder. Discharge Plan Discharge Items Patient Disposition: Personal Jail Reason For Visit: CONFUSION, S/P FALL, MEMORY LOSS Discharge Diagnosis: dementia with paranoid features toxic encephalopathy resolved Activity: Per Instructions section Non-emergency contact: Primary Care Provider Call non-emergency contact if: you have any medication questions, your symptoms worsen and you have a fever Follow-up/Referrals: Lan Cesar MD [Outside Practitioners] - Dalton Golden [Primary Care Provider] - Juan Dawn MD [Physician] - Diet: Heart Healthy Addtl Attending Provider Instructions: please follow medication recommendations from [facility] Plan is to continue Seroquel 300 mg p.o. nightly Seroquel 25 mg p.o. daily as needed for anxiety/agitation and if patient has a behavioral emergency to use olanzapine 2.5 mg ODT or IM. will defer the latter to the PCP. As per neurology, he will need long-term placement and is not safe to be by himself at home and have advised against driving Patient will need follow-up with [facility] neurology as outpatient and also with his own psychiatrist Dr. Lamine Beaulieuration Deepak, 06/23/24 patient requesting a change in his PCP from [facility] to [facility] Pending Studies at Discharge: No Stand-Alone Forms: My [facility], Smoking Cessation Skilled Items Patient informed of condition?: Yes DNR: Yes Discharge Level of Care: Other Communicable Disease: No Discharge Prognosis: Stable Lines: None Urinary Catheter: No Medications and DC Order Prescriptions: New quetiapine 25 mg Tablet 25 mg PO DAILY PRN (Reason: anxiety) Qty: 30 0RF Saline Mist 0.65 % Aerosol,[place] 2 spray NA Q1H PRN (Reason: nasal congestion) Qty: 44 0RF folic acid 1 mg Tablet 1 mg PO QAM Qty: 30 0RF thiamine HCl (vitamin B1) 100 mg Tablet 100 mg PO QAM Qty: 30 0RF fexofenadine [Allergy Relief (fexofenadine)] 180 mg Tablet 180 mg PO QAM Qty: 30 0RF Continued omega 5-hxz-lhp-fish oil [Fish Oil] 60-90-500 mg capsule 1 cap PO BID (DME) BD Eclipse Luer-Alba 3 mL 25 x 5/8" syringe See Rx Instructions .ROUTE .MEDSUPPLY Qty: 50 0RF Rx Instructions: use once weekly with testosterone azelastine 137 mcg (0.1 %) aerosol,spray 2 spray intranasal BID Rx Instructions: administer into each nostril latanoprost 0.005 % Drops 1 drp ophthalmic (eye) HS Rx Instructions: INSTILL ONE DROP TO BOTH EYES AT BEDTIME FOR GLAUCOMA pantoprazole 40 mg Tablet,Delayed Release (Dr/Ec) 40 mg PO DAILYBB atorvastatin 20 mg tablet 20 mg PO HS losartan 50 mg tablet 50 mg PO HS levothyroxine 50 mcg tablet 50 mcg PO DAILYBB fluticasone propionate 50 mcg/actuation spray,suspension 2 spray INTRANASAL DAILY trazodone 100 mg tablet 200 mg PO HS Changed quetiapine [Seroquel] 300 mg tablet 300 mg PO HS Qty: 0 0RF Rx Instructions: 1/2 tablet Discontinued chlorthalidone 25 mg tablet 25 mg PO QAM ipratropium bromide 42 mcg (0.06 %) spray,non-aerosol 2 spray INTRANASAL TID PRN (Reason: Allergic Symptoms) Discharge Orders: Discharge Order (Routine); Ordered 06/23/24 Ordered By: Long Rashid Admission Data Admit Date/Time: 06/02/24 00:04 Attending Provider: Long Rashid Admit Provider: Bala Dowd Primary Care Provider: Dalton Golden Other Providers: Bala Dowd; Juan Dawn; Ashish Fuentes; [facility]; [facility],Home Healthcare; [facility],Referral Center; Charlotte Velazquez; Jigar Martínez; Daryl Gomez Jr; Paloma Mckenzie; [facility] Stay Data Consultations 06/01/24 23:02 ED Decision to Admit Stat 06/02/24 00:04 Consult Neurology Routine 06/03/24 08:01 Consult Psychiatry Routine 06/08/24 07:59 Consult Psychiatry Routine Diagnostic Imagining Performed 06/01/24 19:00 CT cervical spine wo con Stat CT head/brain wo con Stat 06/01/24 19:01 CT facial bones wo con Stat 06/02/24 00:17 MR brain wo con Stat Pending Results Patient Have Any Pending Studies at Discharge: No Discharge Instructions Given to Patient (Per Discharging Provider) please follow medication recommendations from [facility] Plan is to continue Seroquel 300 mg p.o. nightly Seroquel 25 mg p.o. daily as needed for anxiety/agitation and if patient has a behavioral emergency to use olanzapine 2.5 mg ODT or IM. will defer the latter to the PCP. As per neurology, he will need long-term placement and is not safe to be by himself at home and have advised against driving Patient will need follow-up with [facility] neurology as outpatient and also with his own psychiatrist Dr. Lamine Howardebramichelle [place], 06/23/24 patient requesting a change in his PCP from [facility] to [facility] Med Coding Diagnoses Moderate dementia associated with alcoholism, with other behavioral disturbance F10.27 Dementia severity: moderate Dementia behavioral or psychological symptom: with other behavioral disturbance History of alcohol abuse F10.11 Hypertension I10 Wernickes encephalopathy E51.2 Other specified hypothyroidism E03.8 Hypothyroidism type: other Obstructive sleep apnea G47.33 Chronic sinusitis J32.9 Blurry vision H53.8
== END 2024-06-23 11:22 | disposition home or self-care (01) | DRG 640 ==
LOC: ED 18:13 → EDINP 06-02 00:04 → SUATTDRO 06-02 00:04 → 2S 06-02 02:18 → 3E 06-04 15:27

== ENCOUNTER 2025-03-26 10:30 | Inpatient (IN) ==
[2025-03-26 11:23] LABS: Hematocrit (blood only) 39.0 % (42.0-52.0); Hemoglobin 13.9 g/dl (14.0-18.0); Immature Granulocytes # (auto) 0.01 K/uL (0.01-0.20); Immature Granulocytes % (auto) 0.2 %; Mean Corpuscular Hemoglobin 32.4 pg (25.0-34.0); Mean Corpuscular Volume 90.9 fL (80.0-100.0); Platelet Count 214 K/uL (130-400); RDW Standard Deviation 46.2 fL (36.4-46.3); Red Blood Count 4.29 M/uL (4.70-6.10); White Blood Count 5.15 K/ul (4.8-10.8)
[2025-03-26 11:39] LABS: Alanine Aminotransferase 26.0 U/L (7-52); Albumin Globulin Ratio 1.6 (0.9-2); Alkaline Phosphatase 49.0 U/L (34-104); Anion Gap 6.0 (3-11); Bilirubin,Total 1.3 mg/dl (0.2-1.0); Blood Urea Nitrogen 18.0 mg/dl (6-23); Calcium 9.7 mg/dl (8.6-10.3); Carbon Dioxide 28.0 mmol/L (21-32); Chloride 102.0 mmol/L (98-107); Creatinine Clr Calc Pharmacy 53.1 ml/min; Globulin 2.6 gm/dl (2.5-4.0); Glucose 126.0 mg/dl (70-99(Fasting)); Magnesium 1.9 mg/dl (1.7-2.4); Potassium 4.0 mmol/L (3.5-5.1); Sodium 136.0 mmol/L (136-145); Total Protein 6.7 gm/dl (6.0-8.3)
--- NOTE | 2025-03-26 11:43 | Emergency Department Note ---
Impression & Plan Acute CVA (cerebrovascular accident), Blurred vision ED Provider Note HISTORY OF PRESENT ILLNESS: Patient is a 70-year-old male presenting with blurry vision. Patient reports that he had floaters in his eye recently and he saw his eye doctor and there were no abnormalities. He describes his floaters as flashes of lights. He reports that his floaters in his eye improved. However, today he woke up and had the floaters again for half of his field of vision on the right eye and part of his field of vision on the left. He states that the floaters then went away at around 10 AM and when he was trying to read he started to notice that his vision was very blurry. He reports that the blurry vision is present with both eyes open and does not correct when 1 eye is closed. He denies any head injury or chiropractic manipulation of his neck. He is not on any anticoagulation or antiplatelet therapy. He wears corrective glasses. He denies any headache. Denies any numbness, tingling or weakness in his extremities. He does report that his vision seems blurry. He states that he is able to read things, but it is more difficult because his entire visual field is blurry. ROS: as above PHYSICAL EXAM: Constitutional: Patient appears in no acute distress. HENT: Head: Normocephalic and atraumatic. Eyes: EOMI, PERRL Mouth/Throat: Mucous membranes moist. Neck: Trachea midline. Neck supple. Cardiovascular: RRR, No murmurs, rubs or gallops. Intact distal pulses. Pulmonary/Chest: No respiratory distress. Breath sounds clear and equal bilaterally. No wheezes or rales. Abdominal: Abdomen soft, no tenderness, rebound or guarding. Musculoskeletal: No edema, tenderness or deformity noted. Skin: Warm and dry. No rash, erythema, pallor or cyanosis Psychiatric: Appropriate mood and affect for situation. Neurological: Alert and keenly responsive. Facies symmetric. Able to raise eyebrows, close eyes, smile, puff mouth, stick out tongue, move tongue left and right and raise palate symmetrically. Able to shrug shoulders. PERRLA. SILT to forehead below eye and at jawline. Can hear soft noise bilaterally. Strength 5/5 in bilateral upper and lower extremities. SILT throughout bilateral upper and lower extremities. MDM: - Vitals signs stable. - History obtained via patient. History as above. - Chronic conditions affecting care: Anxiety/depression; HLD - Differential diagnoses include, but are not limited to: CVA; acute intracranial hemorrhage; acute angle-closure glaucoma; hypoglycemia - Order placed for continuous cardiac monitoring. At this time, monitor showed rate of 61 bpm with normal sinus rhythm, per my interpretation. - External medical records reviewed. Primary care visit note dated11/2024 was reviewed. Patient was seen for his annual visit. 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 He currently follows with neurology. He has been sober since February 2024. - EKG image interpreted by myself showed normal sinus rhythm. Rate 63 bpm. QT 418. No acute ischemic changes. - Laboratory workup interpreted by myself showed normal WBC; normal PT/INR; stable electrolytes; elevated total bilirubin (1.3); normal troponin; slight hyperglycemia (glucose 126) with normal anion gap - CT head wo contrast negative for acute intracranial pathology. - CTA head showed occlusion of the distal right TAX COLLECTION COORDINATOR branch (P3/P4). - CTA neck showed moderate atherosclerotic plaque within the bilateral internal carotid arteries resulting in 30% stenosis of the left ICA. - Difficulties in putting down an exact last known well, as patient states he woke up today and noticed floaters in his vision. Blurry vision he states started around 10 AM, but may have started sooner than that. As such, he is not a candidate for TNK. His CT imaging does not show any evidence of large vessel occlusion to warrant transfer for thrombectomy. Patient given 81 mg of aspirin and 300 mg of Plavix. Will admit for further stroke workup. - Discussed case with telestroke neurologist, Dr. Chirinos, from [facility] at 13:41.he was in agreement that this is concerning for potential wake-up stroke, given that the patient woke up with visual symptoms that just got worse in terms of going from floaters to blurry vision. He is in agreement that that the patient is not a TNK candidate. He recommends the patient be started on a baby aspirin and 300 mg of Plavix. Recommends admission for MRI and echocardiogram and further stroke workup. He will write a note to place in the patient's chart. - Discussion was had with disease case manager rn about patient's case and need for admission - Hospitalist consulted for admission - [facility]. I have personally spent 61 minutes of critical care time in the direct management of this patient. This includes bedside care, interpretation of diagnostic studies, and testing, discussion with consultants, patient, and family members, and other required patient management activities. This 61 minutes is in excess of all separately billable procedures. ASSESSMENT AND PLAN: Diagnosis: Acute CVA; blurred vision Plan: Admit Past Med/Surg History Problem List (Updated 03/26/25 @ 13:45 by Jovana Keller MD) Blurred vision (Acute) Acute CVA (cerebrovascular accident) (Acute) Nocturnal hypoxemia Anxiety and depression Dyslipidemia Alcohol related disease or syndrome Blurry vision Chronic sinusitis Paranoia Delusions Insomnia Mild cognitive impairment Hypogonadism male Fatigue Pituitary adenoma Medical History (Updated 03/26/25 @ 13:45 by Jovana Keller MD) Delirium Alcoholic dementia Wernickes encephalopathy Hypertension Elevated troponin History of alcohol abuse CHI (closed head injury) Obstructive sleep apnea Hypothyroidism Major neurocognitive disorder Surgical History (Updated 01/19/25 @ 08:26 by Montse Carlson PA-C) History of colonoscopy 03/25/2023, repeat due in 5 years S/P knee surgery R knee S/P carpal tunnel release bilateral S/P cataract surgery Family History Mother Dementia Father Lymphatic leukemia Denies family history of Ovarian cancer Prostate cancer Myocardial infarction Breast cancer Colorectal cancer Social History Smoking Status: Never smoker Second Hand Exposure: No; Do You Dip or Chew Tobacco: No; Hx Alcohol Use: No (hx of alcoholism) Hx Substance Use: No Preferred Language: [place] Communication Ability: Impaired 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 Beliefs That Will Affect Care: None marital status: Current Living Situation: Alone current occupational status: retired Feels Safe at Home: Yes Childhood Exposure to Second-Hand Smoke: No Diet: regular Dental Care, Regularly: Yes Physical Activity Frequency: Daily Seatbelt Use: always Sunscreen Use: Yes Assistive Devices: CPAP, Glasses and Hearing Aid - Bilateral Allergies Allergies Allergy/AdvReac Type Severity Reaction Status Date / Time morphine Allergy Unknown Verified 01/17/25 13:57 Home Meds Home Medications Medication Instructions Recorded Confirmed acetaminophen 325 mg capsule 650 mg PO Q6H PRN Pain 09/01/24 03/26/25 naproxen 375 mg tablet 375 mg PO BID PRN knee pain 09/01/24 03/26/25 pseudoephedrine HCl 60 mg tablet 120 mg PO Q12H PRN Congestion 10/06/24 03/26/25 (Sudogest) suvorexant 10 mg tablet (Belsomra) 10 mg PO HS PRN Sleep 10/06/24 03/26/25 diclofenac sodium 1 % topical gel 2 g topical QID PRN Pain 01/09/25 03/26/25 (Arthritis Pain (diclofenac)) guaifenesin 400 mg tablet 400 mg PO Q4H PRN Cough 01/09/25 03/26/25 quetiapine 300 mg tablet (Seroquel) 450 mg PO DAILY 01/11/25 03/26/25 cetirizine 10 mg tablet 10 mg PO DAILY 03/26/25 03/26/25 ipratropium bromide 42 mcg (0.06 2 spray intranasal DAILY 03/26/25 03/26/25 %) nasal spray latanoprost 0.005 % eye drops 1 drp ophthalmic (eye) HS 03/26/25 03/26/25 omega 9-pjt-[id number]-fish oil 60 mg-90 1 cap PO DAILY 03/26/25 03/26/25 mg-500 mg capsule (Fish Oil) Previous Rx's Medication Instructions Recorded folic acid 1 mg tablet 1 mg PO QAM #30 tabs 06/23/24 thiamine HCl (vitamin B1) 100 mg 100 mg PO QAM #30 tabs 06/23/24 tablet trazodone 100 mg tablet 200 mg (2 x 100 mg) PO HS #30 tabs 06/23/24 atorvastatin 20 mg tablet 20 mg PO HS #90 tabs 11/14/24 fluticasone propionate 50 2 spray intranasal DAILY #16 grams 11/14/24 mcg/actuation nasal spray,suspension levothyroxine 50 mcg tablet 50 mcg PO DAILYBB #90 tabs 11/14/24 losartan 50 mg tablet 50 mg PO HS #90 tabs 11/14/24 pantoprazole 40 mg tablet,delayed 40 mg PO DAILYBB #90 tabs 11/14/24 release azelastine 137 mcg (0.1 %) nasal 2 spray intranasal BID #30 mL 02/17/25 spray Results & Data (ED) Vital Signs Vital Signs - 24 hr 03/26/25 10:37 03/26/25 11:14 03/26/25 12:00 Temperature 36.5 C Temperature Source Temporal Artery Scan Pulse Rate 72 Pulse Rate [Finger] 72 60 Respiratory Rate 14 18 18 Respiratory Effort / Characteristics Non-Labored Spontaneous Non-Labored Spontaneous Respiratory Depth Normal Normal Respiratory Pattern Regular Regular Blood Pressure 119/76 Blood Pressure [Right Arm] 134/87 132/72 Blood Pressure Mean 90 Blood Pressure Mean [Right Arm] 102 92 Pulse Oximetry 98 94 97 Oxygen Delivery Method Room Air Room Air Room Air Sepsis New/Unexplained Change in Mental Status No Sepsis Action Taken by Nursing No Action Required 03/26/25 13:00 Temperature Temperature Source Pulse Rate Pulse Rate [Finger] 61 Respiratory Rate 18 Respiratory Effort / Characteristics Non-Labored Spontaneous Respiratory Depth Normal Respiratory Pattern Regular Blood Pressure Blood Pressure [Right Arm] 145/83 H Blood Pressure Mean Blood Pressure Mean [Right Arm] 103 Pulse Oximetry 96 Oxygen Delivery Method Room Air Sepsis New/Unexplained Change in Mental Status Sepsis Action Taken by Nursing Laboratory Data 03/26/25 11:07 03/26/25 11:07 Lab Results 03/26/25 Range/Units 11:07 WBC 5.15 (4.8-10.8) K/ul RBC 4.29 L (4.70-6.10) M/uL Hgb 13.9 L (14.0-18.0) g/dl Hct 39.0 L (42.0-52.0) % MCV 90.9 (80.0-100.0) fL MCH 32.4 (25.0-34.0) pg MCHC 35.6 (32.0-36.0) g/dL RDW Std Deviation 46.2 (36.4-46.3) fL RDW Coeff of Elsie 13.8 (11.5-14.5) % Plt Count 214 (130-400) K/uL MPV 9.7 (9.4-12.4) fL Immature Gran % (Auto) 0.2 % Neut % (Auto) 56.1 % Lymph % (Auto) 27.8 % [place] % (Auto) 9.9 % Eos % (Auto) 5.0 % Baso % (Auto) 1.0 % Neut # (Auto) 2.89 (1.40-6.50) K/uL Lymph # (Auto) 1.43 (1.20-3.40) K/uL [place] # (Auto) 0.51 (0.11-0.59) K/uL Eos # (Auto) 0.26 (0.00-0.50) K/uL Baso # (Auto) 0.05 (0.00-0.20) K/uL Immature Gran # (Auto) 0.01 (0.01-0.20) K/uL PT 10.9 (9.0-12.0) Seconds INR 1.0 (0.9-1.1) APTT 24 (21-31) Seconds PTT Ratio 0.9 Sodium 136 (136-145) mmol/L Potassium 4.0 (3.5-5.1) mmol/L Chloride 102 (98-107) mmol/L Carbon Dioxide 28 (21-32) mmol/L Anion Gap 6 (3-11) BUN 18 (6-23) mg/dl Creatinine 1.21 (0.6-1.4) mg/dl Est Cr Clr Drug Dosing 53.1 ml/min eGFR 64.41 BUN/Creatinine Ratio 14.9 (10-20) Glucose 126 H (70-99(Fasting)) mg/dl Calcium 9.7 (8.6-10.3) mg/dl Magnesium 1.9 (1.7-2.4) mg/dl Total Bilirubin 1.3 H (0.2-1.0) mg/dl AST 23 (13-39) U/L ALT 26 (7-52) U/L Alkaline Phosphatase 49 (34-104) U/L Troponin I High Sens 3.2 (0-20) pg/ml Total Protein 6.7 (6.0-8.3) gm/dl Albumin 4.1 (3.4-5.0) gm/dl Globulin 2.6 (2.5-4.0) gm/dl Albumin/Globulin Ratio 1.6 (0.9-2) Administered Medications Discontinued Medications Aspirin (Aspirin Chew 324 Mg) 81 mg PO NOW STA Stop: 03/26/25 13:09 Last Admin: 03/26/25 13:14 Dose: Not Given Documented By: LAKESHIA Aspirin (Aspirin 81 Mg Chew) Confirm Administered Dose 81 mg .ROUTE .STK-MED ONE Stop: 03/26/25 13:11 Last Admin: 03/26/25 13:12 Dose: Not Given Documented By: LAKESHIA Aspirin (Aspirin 81 Mg Chew) 81 mg PO NOW STA Stop: 03/26/25 13:13 Last Admin: 03/26/25 13:16 Dose: 81 mg Documented By: LAKESHIA Clopidogrel Bisulfate (Clopidogrel Bisulfate 300 Mg Tab) 300 mg PO NOW STA Stop: 03/26/25 13:09 Last Admin: 03/26/25 13:16 Dose: 300 mg Documented By: LAKESHIA Ioversol (Optiray 320 125ml) 112 ml IV ONCE ONE Stop: 03/26/25 11:57 Last Admin: 03/26/25 11:56 Dose: 112 ml Documented By: TERRENCE Imaging Data Radiologist's Impression: Head CT 03/26/25 10:57 CT SCAN OF THE BRAIN WITHOUT IV CONTRAST CLINICAL HISTORY: Blurred vision. COMPARISON STUDY: MRI of the brain June 02, 2024. Head CT June 01, 2024. TECHNIQUE: Unenhanced axial CT scan of the brain was performed from the vertex to the skull base. A dose lowering technique was utilized adhering to the principles of ALARA. FINDINGS: Brain parenchyma: No acute intracranial hemorrhage, midline shift or mass effect is present. Ferreira-white matter differentiation is preserved. There are no extra- axial fluid collections. There are no findings to suggest acute dural sinus thrombosis or acute territorial infarct. Ventricles, sulci, cisterns: There is no hydrocephalus. The basal cisterns are patent. Calvarium: Unremarkable. Sinuses and mastoids: There is mild sinus mucosal thickening. The mastoid air cells are well pneumatized. Orbits: The bony orbits are grossly intact. IMPRESSION: No acute intracranial findings. ACT 112: Negative or not required by law. Electronically signed by: Carlos Jansen M.D. 03/26/2025 12:13 PM Head CTA 03/26/25 10:57 CTA ANGIOGRAPHY OF THE HEAD CLINICAL HISTORY: blurred vision COMPARISON STUDY: MRI of the brain June 02, 2024. Head CT June 01, 2024. TECHNIQUE: Helical axial images of the head were obtained following uneventful intravenous administration of 112 cc of Optiray. Sagittal and coronal reconstructions were viewed as well as maximal intensity projections on an independent 3-D workstation. Automated exposure control was utilized for the study. A dose lowering technique was utilized adhering to the principles of ALARA. CT DOSE: 1108.11 mGy.cm FINDINGS: Please note that the head CT will be reported separately. No acute intracranial hemorrhage, midline shift or mass effect is present. Ventricular system is normal. Basal cisterns are patent. There are no extra axial collections. There is moderate plaque within the right cavernous carotid without significant stenosis. The bilateral M1, M2, A1 and A2 segments are patent. There is no intracranial aneurysm. There is persistence of the bilateral posterior cerebral arteries. Note is made of occlusion of a distal portion of the right posterior cerebral artery on axial image 108 of 255. The left posterior shoulder artery is patent. The basilar artery is patent. IMPRESSION: 1. Occlusion of a distal right TAX COLLECTION COORDINATOR branch (P3/P4). This could be correlated with clinical evidence for an acute right TAX COLLECTION COORDINATOR infarct and MRI if indicated. 2. Otherwise, patent intracranial vessels. No intracranial aneurysm. ACT 112: Negative or not required by law. Electronically signed by: Carlos Jansen M.D. 03/26/2025 12:23 PM Neck CTA 03/26/25 10:57 CT ANGIOGRAPHY OF THE NECK WITH CONTRAST CLINICAL HISTORY: blurred vision COMPARISON STUDY: Cervical spine CT June 01, 2024. Technique: CT angiography of the carotid and vertebral arteries was obtained using Optiray and 3D reconstruction on an independent workstation. NASCET criteria was utilized. Automated exposure control was utilized for the study. A dose lowering technique was utilized adhering to the principles of ALARA. Findings: Visualized portions of the lung apices are unremarkable. There are no cervical spine fractures. There are postoperative findings consistent with C4-C6 anterior discectomy and fusion. There is moderate plaque within the proximal bilateral internal carotid arteries. There is no significant stenosis of the right internal carotid artery. There is 30% narrowing of the proximal left internal carotid artery. The vertebral arteries are patent. The right vertebral artery is dominant. There is no dissection or aneurysm within the neck. IMPRESSION: Moderate atherosclerotic plaque within the proximal bilateral internal carotid arteries which result in 30% stenosis of the proximal left internal carotid artery. No stenosis of the right internal carotid artery. ACT 112: Negative or not required by law. Electronically signed by: Carlos Jansen M.D. 03/26/2025 12:18 PM Discharge Plan Visit Data Chief Complaint: Visual Disturbance Stated Complaint: EYE FLOATER BOTH WORSE IN RIGHT ED Provider: Jovana Keller Discharge Problem: Acute CVA (cerebrovascular accident), Blurred vision Condition: Fair Forms Stand Alone Forms: My [facility] Prescriptions Prescriptions: No Action atorvastatin 20 mg tablet 20 mg PO HS Qty: 90 3RF fluticasone propionate 50 mcg/actuation spray,suspension 2 spray INTRANASAL DAILY Qty: 16 0RF levothyroxine 50 mcg tablet 50 mcg PO DAILYBB Qty: 90 3RF losartan 50 mg tablet 50 mg PO HS Qty: 90 3RF pantoprazole 40 mg tablet,delayed release (DR/EC) 40 mg PO DAILYBB Qty: 90 3RF azelastine 137 mcg (0.1 %) spray,non-aerosol 2 spray intranasal BID Qty: 30 0RF Rx Instructions: administer into each nostril quetiapine [Seroquel] 300 mg tablet 450 mg PO DAILY Belsomra 10 mg tablet 10 mg PO HS PRN (Reason: Sleep) naproxen 375 mg tablet 375 mg PO BID PRN (Reason: knee pain) acetaminophen 325 mg capsule 650 mg PO Q6H PRN (Reason: Pain) pseudoephedrine HCl [Sudogest] 60 mg tablet 120 mg PO Q12H PRN (Reason: Congestion) guaifenesin 400 mg tablet 400 mg PO Q4H PRN (Reason: Cough) diclofenac sodium [Arthritis Pain (diclofenac)] 1 % gel 2 g topical QID PRN (Reason: Pain) Rx Instructions: apply to single elbow, wrist or hand; for hand includes palm/fingers/back of hand folic acid 1 mg Tablet 1 mg PO QAM Qty: 30 0RF thiamine HCl (vitamin B1) 100 mg Tablet 100 mg PO QAM Qty: 30 0RF trazodone 100 mg tablet 200 mg PO HS Qty: 30 0RF latanoprost 0.005 % drops 1 drp ophthalmic (eye) HS Rx Instructions: INSTILL 1 DROP INTO EACH EYE AT BEDTIME FOR GLAUCOMA cetirizine 10 mg Tablet 10 mg PO DAILY ipratropium bromide 42 mcg (0.06 %) spray,non-aerosol 2 spray intranasal DAILY Rx Instructions: Use 2 spray(s) in each nostril once daily omega [id number]-fish oil [Fish Oil] 60-90-500 mg capsule 1 cap PO DAILY Referrals Referrals: Musa Hernandez DO [Primary Care Provider] -
[2025-03-26 11:49] LABS: INR 1.0 (0.9-1.1); Partial Thromboplastin Time 24 Seconds (21-31); Prothrombin Time 10.9 Seconds (9.0-12.0)
--- NOTE | 2025-03-26 11:55 | Electrocardiogram Report ---
Test Reason : Blood Pressure : */* mmHG Vent. Rate : 63 BPM Atrial Rate : 63 BPM P-R Int : 146 ms QRS Dur : 94 ms QT Int : 418 ms P-R-T Axes : 56 10 44 degrees QTcB Int : 427 ms Normal sinus rhythm Normal ECG When compared with ECG of 09-Jun-2024 18:04, No significant change was found Confirmed by Yony Rosas ([id number]) on 03/26/2025 11:55:27 AM Referred By: Confirmed By: Yony Rosas
[2025-03-26] MEDS: OPTIRAY 320 125ml IV ONE (11:56)
--- NOTE | 2025-03-26 12:15 | CT Scan Report ---
CT SCAN OF THE BRAIN WITHOUT IV CONTRAST CLINICAL HISTORY: Blurred vision. COMPARISON STUDY: MRI of the brain June 02, 2024. Head CT June 01, 2024. TECHNIQUE: Unenhanced axial CT scan of the brain was performed from the vertex to the skull base. A dose lowering technique was utilized adhering to the principles of ALARA. FINDINGS: Brain parenchyma: No acute intracranial hemorrhage, midline shift or mass effect is present. Ferreira-whi te matter differentiation is preserved. There are no extra-axial fluid collections. There are no find ings to suggest acute dural sinus thrombosis or acute territorial infarct. Ventricles, sulci, cisterns: There is no hydrocephalus. The basal cisterns are patent. Calvarium: Unremarkable. Sinuses and mastoids: There is mild sinus mucosal thickening. The mastoid air cells are well pneumati zed. Orbits: The bony orbits are grossly intact. IMPRESSION: No acute intracranial findings. ACT 112: Negative or not required by law. Electronically signed by: Carlos Jansen M.D. 03/26/2025 12:13 PM
--- NOTE | 2025-03-26 12:20 | CT Scan Report ---
CT ANGIOGRAPHY OF THE NECK WITH CONTRAST CLINICAL HISTORY: blurred vision COMPARISON STUDY: Cervical spine CT June 01, 2024. Technique: CT angiography of the carotid and vertebral arteries was obtained using Optiray and 3D rec onstruction on an independent workstation. NASCET criteria was utilized. Automated exposure control was utilized for the study. A dose lowering technique was utilized adhering to the principles of ALA RA. Findings: Visualized portions of the lung apices are unremarkable. There are no cervical spine fractu res. There are postoperative findings consistent with C4-C6 anterior discectomy and fusion. There is moderate plaque within the proximal bilateral internal carotid arteries. There is no significant sten osis of the right internal carotid artery. There is 30% narrowing of the proximal left internal carot id artery. The vertebral arteries are patent. The right vertebral artery is dominant. There is no dis section or aneurysm within the neck. IMPRESSION: Moderate atherosclerotic plaque within the proximal bilateral internal carotid arteries w hich result in 30% stenosis of the proximal left internal carotid artery. No stenosis of the right in ternal carotid artery. ACT 112: Negative or not required by law. Electronically signed by: Carlos Jansen M.D. 03/26/2025 12:18 PM
--- NOTE | 2025-03-26 12:25 | CT Scan Report ---
CTA ANGIOGRAPHY OF THE HEAD CLINICAL HISTORY: blurred vision COMPARISON STUDY: MRI of the brain June 02, 2024. Head CT June 01, 2024. TECHNIQUE: Helical axial images of the head were obtained following uneventful intravenous administr ation of 112 cc of Optiray. Sagittal and coronal reconstructions were viewed as well as maximal inten sity projections on an independent 3-D workstation. Automated exposure control was utilized for the study. A dose lowering technique was utilized adhering to the principles of ALARA. CT DOSE: 1108.11 mGy.cm FINDINGS: Please note that the head CT will be reported separately. No acute intracranial hemorrhage, midline shift or mass effect is present. Ventricular system is normal. Basal cisterns are patent. Th ere are no extra axial collections. There is moderate plaque within the right cavernous carotid witho ut significant stenosis. The bilateral M1, M2, A1 and A2 segments are patent. There is no intracrania l aneurysm. There is persistence of the bilateral posterior cerebral arteries. Note is made of occlusion of a distal portion of the right posterior cerebral artery on axial image 108 of 255. The l eft posterior shoulder artery is patent. The basilar artery is patent. IMPRESSION: 1. Occlusion of a distal right C[employer] branch (P3/P4). This could be correlated with clinical evidence fo r an acute right C[employer] infarct and MRI if indicated. 2. Otherwise, patent intracranial vessels. No intracranial aneurysm. ACT 112: Negative or not required by law. Electronically signed by: Carlos Jansen M.D. 03/26/2025 12:23 PM
[2025-03-26] MEDS: ASPIRIN 81 MG CHEW ONE (13:12)
[2025-03-26] MEDS: ASPIRIN CHEW 324 MG PO STA (13:14)
[2025-03-26] MEDS: ASPIRIN 81 MG CHEW PO STA (13:16)
[2025-03-26] MEDS: CLOPIDOGREL BISULFATE 300 MG TAB PO STA (13:16)
--- NOTE | 2025-03-26 13:35 | History & Physical Report ---
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 #Right distal Posterior Cerebral Artery occlusion #Ischemic stroke VSS, no focal deficits have been observed, no floaters, numbness/tingling, or blurriness subjectively, no focal weakness, no nystagmus or n/v CTA head showing occlusion of the distal half of the R [employer]ILITY MAINTENANCE WORKER; CTA neck showing atherosclerotic plaques of b/l ICAs but only 30% stenosis of L ICA. - CT head w/o con showing no acute intracranial pathology - Re-imaging ordered: MRI and MRA brain w/o contrast, and MRA neck w/ contrast - given aspirin 81mg and clopidogrel 300mg in ER; not a candidate for thrombolysis due to unknown last "normal" - continue DAPT daily: aspirin 81mg and clopidogrel 75mg qAM, continue for 3 weeks to reduce risk of recurrence - Continue monitoring VS and serial neuro checks - ordered TTE with bubble study to investigate for thromboembolic etiology, though less likely than atherosclerotic BP has been within normal limits with max systolic 145 while in ER - allowing for permissive hypertension; prn antihypertensive for BP >220/120 - May continue home losartan 50mg qHS #Dyslipidemia lipid panel 03/22/25 WNL, on atorvastatin 20mg at home Increased to high-intensity statin: atorvastatin 80mg due to stroke in the setting of atherosclerotic disease Chronic, stable: #Alcoholic dementia- continue quetiapine 450mg daily; continue abstaining from alcohol #HTN- continue losartan 50mg nightly #Pituitary adenoma w/ hypogonadism- low testosterone, currently not on HRT #GERD- continue protonix 40mg daily #glaucoma- continue latanoprost 1drp b/l qHS #hypothyroidism- continue levothyroxine 50mcg daily Code: conditional (no CPR; allowing intubation and artificial ventilation) FEN/GI: regular diet as tolerated VTE ppx: lovenox 40mg subQ daily Dispo: med/surg tele History of Present Illness Chief Complaint: blurriness, visual disturbance Primary Care Provider: Musa Hernandez DO Star is a 70yo male with PMHx HTN, chronic alcoholism with hospitalization in 2023 and component of alcoholic dementia, here for visual disturbance of transient "floaters" and subsequent blurry vision, found to have R [employer]ACILITY [employer]INTENANCE WORKER occlusion on imaging, admitted for acute R [employer]ACILITY MAINTENANCE WORKER stroke for vital sign monitoring, stroke workup, medical stabilization, and neuro checks. HPI: Endorses he had "floaters" in both of his eyes this morning for about 45min before going away on their own. Soon after, he started having blurry vision at close distances which he noticed when he was reading, denies any other symptoms at that time such as dizziness, nausea/vomiting, or pain. Also notes the blurriness was in both eyes equally. Denies any recent falls, trauma, recent alcohol use, or other substance use. Denies any recent illness, nausea/vomiting, dizziness, tingling/numbness, imbalance when walking, or difficulty eating/swallowing. ER course: given aspirin 81mg, clopidogrel 300mg - given diet, ate full lunch without issue Home situation: lives on his own in 1-floor house only with his pet dog. Denies any home health services or ambulation assistance. Allergies Allergy/AdvReac Type Severity Reaction Status Date / Time morphine Allergy Unknown Verified 01/17/25 13:57 Home Medications Medication Instructions Recorded Confirmed Type folic acid 1 mg tablet 1 mg PO QAM #30 tabs 06/23/24 03/26/25 Rx thiamine HCl (vitamin B1) 100 mg 100 mg PO QAM #30 tabs 06/23/24 03/26/25 Rx tablet trazodone 100 mg tablet 200 mg (2 x 100 mg) PO HS #30 tabs 06/23/24 03/26/25 Rx acetaminophen 325 mg capsule 650 mg PO Q6H PRN Pain 09/01/24 03/26/25 History naproxen 375 mg tablet 375 mg PO BID PRN knee pain 09/01/24 03/26/25 History pseudoephedrine HCl 60 mg tablet 120 mg PO Q12H PRN Congestion 10/06/24 03/26/25 History (Sudogest) suvorexant 10 mg tablet (Belsomra) 10 mg PO HS PRN Sleep 10/06/24 03/26/25 History atorvastatin 20 mg tablet 20 mg PO HS #90 tabs 11/14/24 03/26/25 Rx fluticasone propionate 50 2 spray intranasal DAILY #16 grams 11/14/24 03/26/25 Rx mcg/actuation nasal spray,suspension levothyroxine 50 mcg tablet 50 mcg PO DAILYBB #90 tabs 11/14/24 03/26/25 Rx losartan 50 mg tablet 50 mg PO HS #90 tabs 11/14/24 03/26/25 Rx pantoprazole 40 mg tablet,delayed 40 mg PO DAILYBB #90 tabs 11/14/24 03/26/25 Rx release diclofenac sodium 1 % topical gel 2 g topical QID PRN Pain 01/09/25 03/26/25 History (Arthritis Pain (diclofenac)) guaifenesin 400 mg tablet 400 mg PO Q4H PRN Cough 01/09/25 03/26/25 History quetiapine 300 mg tablet (Seroquel) 450 mg PO DAILY 01/11/25 03/26/25 History azelastine 137 mcg (0.1 %) nasal 2 spray intranasal BID #30 mL 02/17/25 03/26/25 Rx spray cetirizine 10 mg tablet 10 mg PO DAILY 03/26/25 03/26/25 History ipratropium bromide 42 mcg (0.06 2 spray intranasal DAILY 03/26/25 03/26/25 History %) nasal spray latanoprost 0.005 % eye drops 1 drp ophthalmic (eye) HS 03/26/25 03/26/25 History omega 4-bjc-gmf-fish oil 60 mg-90 1 cap PO DAILY 03/26/25 03/26/25 History mg-500 mg capsule (Fish Oil) Past Med/Surg History Problem List (Updated 03/26/25 @ 14:58 by Juan Jacome DO) Acute right arterial ischemic stroke, 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) Blurred vision (Acute) Acute CVA (cerebrovascular accident) (Acute) Nocturnal hypoxemia Anxiety and depression Dyslipidemia Alcohol related disease or syndrome Blurry vision Chronic sinusitis Paranoia Delusions Insomnia Mild cognitive impairment Hypogonadism male Fatigue Pituitary adenoma Medical History (Updated 03/26/25 @ 14:58 by Juan Jacome DO) Delirium Alcoholic dementia Wernickes encephalopathy Hypertension Elevated troponin History of alcohol abuse CHI (closed head injury) Obstructive sleep apnea Hypothyroidism Major neurocognitive disorder Surgical History (Updated 01/19/25 @ 08:26 by Montse Carlson PA-C) History of colonoscopy 03/25/2023, repeat due in 5 years S/P knee surgery R knee S/P carpal tunnel release bilateral S/P cataract surgery Family History Mother Dementia Father Lymphatic leukemia Denies family history of Ovarian cancer Prostate cancer Myocardial infarction Breast cancer Colorectal cancer Social History Smoking Status: Never smoker Second Hand Exposure: No; Do You Dip or Chew Tobacco: No; Hx Alcohol Use: Yes (no longer uses) Hx Substance Use: No Preferred Language: Hungarian Communication Ability: Effective Drosophere Operator Required: No Beliefs That Will Affect Care: None marital status: Current Living Situation: Alone current occupational status: retired Other Information That Helps Us Care for You: No Feels Safe at Home: Yes Safety Concerns: Feels Safe At This Time Childhood Exposure to Second-Hand Smoke: No Diet: regular Dental Care, Regularly: Yes Physical Activity Frequency: Daily Seatbelt Use: always Sunscreen Use: Yes Assistive Devices: Glasses and Hearing Aid - Bilateral Physical Exam Physical Exam: Gen: A&Ox3, no acute distress HEENT: NC/AT, EOM intact, PERRL b/l, no visual field deficits elicited CV: RRR, +s1/s2, no m/r/g Resp: clear to auscultation b/l GI/Abd: normoactive BS, abdomen soft, nontender to palpation MSK: 5/5 strength in b/l UE and LE Neuro: CN II-XII intact, no facial droop, speech intact, moves all extremities on command and spontaneously Psych: mood-affect congruence, good eye contact Results & Data Results & Data Vital Signs (Past 12 Hours) Vital Signs Temp Pulse Pulse Resp BP BP Pulse Ox 03/26/25 13:00 61 18 145/83 H 96 03/26/25 12:00 60 18 132/72 97 03/26/25 11:14 72 18 134/87 94 03/26/25 10:37 36.5 C 72 14 119/76 98 O2 Del Method 03/26/25 13:00 Room Air 03/26/25 12:00 Room Air 03/26/25 11:14 Room Air 03/26/25 10:37 Room Air Supervising Physician Co-Signing Physician Notes I personally examined the patient and verified all dodson points of history and exam, discussed case, and agree with decision making with Dr Jacome vision is better now. Was blurry, both eyes, for several hours, but now improving. No other neurologic deficits. Vitals noted, in general he is awake and alert pleasant no distress. HEENT normocephalic atraumatic mucous membranes moist. Breathing unlabored no accessory muscle use good effort. Neuro without focal deficits. Labs and diagnostics noted. Blurred visionseems consistent with FACILITY MAINTENANCE WORKER strokedual antiplatelets, escalate atorvastatin to 80 for now, probably 40 chronically for plaque stabilization but not necessarily hyper suppressing an already low LDL. Complete the stroke workup as ordered. Fortunately already recovering. Likely to be able to go home tomorrow. Follow blood pressure. He notes that he is generally in the 604721 systolic range at home. DVT proph - lovenox Resident Activity Tracking Resident Involvement: Resident Care Provided Care Provided: Adult Hospital Medicine (4) Alcoholic dementia Dementia behavioral or psychological symptom: with other behavioral disturbance Dementia severity: moderate Qualified Code(s): F10.27 - Alcohol dependence with alcohol-induced persisting dementia
[2025-03-26 15:43] VITALS: RESP 18
[2025-03-26] MEDS ORDERED: ACETAMINOPHEN 325 MG TAB PO PRN (15:54)
[2025-03-26] MEDS ORDERED: ONDANSETRON INJ 2 MG/ML 2 ML VIAL IV PRN (15:54)
[2025-03-26] MEDS ORDERED: DICLOFENAC SOD 1% GEL 100 GM TUBE EXT PRN (15:54)
[2025-03-26] MEDS ORDERED: PHARMACIST DISCHARGE MED REC CONSULT PRN (15:54)
[2025-03-26] MEDS: ENOXAPARIN INJ 40 MG/0.4 ML SYR SQ SCH (17:05)
--- NOTE | 2025-03-26 18:05 | Billing Data ---
Date of Service March 26, 2025 Coding Level of Care Code 01420 INT INP/OBS CARE
[2025-03-26] MEDS: GADOBUTROL 30ML VIAL IV ONE (18:34)
--- NOTE | 2025-03-26 19:55 | Pharmacy Report ---
- Date of Service March 26, 2025 - Pharmacy CVA/TIA Medication Review Medications to Prevent Stroke handout has been added to the patients discharge packet. Antiplatelet(s) * DAPT: Aspirin 81mg + Clopidogrel 75mg PO daily x3 weeks Cholesterol * High intensity statin: atorvastatin 80 mg daily DVT Prophylaxis * Enoxaparin SQ Therapeutic Anticoagulation * No history of Afib/Aflutter noted Type 2 Diabetes * Patient does not have T2DM
--- NOTE | 2025-03-26 19:57 | Magnetic Resonance Report ---
MRI BRAIN WITHOUT CONTRAST TECHNIQUE: An MRI examination of the brain was performed utilizing sagittal and axial T1-weighted images as well as axial T2-weighted, FLAIR, gradient echo and diffusion-weighted images. INDICATION: Vision problems COMPARISON: CT examinations from the same day FINDINGS: The ventricular, sulcal and cisternal spaces are normal in caliber. There is no evidence of intracranial mass lesion, hydrocephalus, infarct, extra-axial fluid collection, restricted diffusion or parenchymal hemorrhage. The cerebellar tonsils are normal in position. The pituitary gland is not enlarged. The major arterial vascular structures of the skull base are patent. No intraorbital soft tissue mass lesion is observed. Cataract surgeries bilaterally. Mild mucosal thickening of the visualized paranasal sinuses. The mastoid are aerated. IMPRESSION: Unremarkable noncontrast MRI examination of the brain. Electronically signed by Jose Sifuentes 03-26-2025 7:57 PM
--- NOTE | 2025-03-26 20:02 | Magnetic Resonance Report ---
MRA HEAD: INDICATION: Vision problems TECHNIQUE: 3D [id number] MR angiography of the intracranial arterial circulation was performed. Multi-oblique maximum intensity projection images were reviewed as well as the source images. FINDINGS: HEAD: Intracranial ICAs: No hemodynamically significant stenosis ACAs: No hemodynamically significant stenosis MCAs: No hemodynamically significant stenosis Intracranial vertebrobasilar system: IMPRESSION: No large vessel occlusion. There is no hemodynamically significant stenosis in the head. Electronically signed by Jose Sifuentes 03-26-2025 7:57 PM
[2025-03-26] MEDS ORDERED: Nursing to Pharmacy Communication SCH ×2 (20:30→21:30)
[2025-03-26] MEDS ORDERED: ATORVASTATIN 20 MG TAB PO SCH (21:00)
[2025-03-26] MEDS: ATORVASTATIN 40 MG TAB PO SCH (21:06)
[2025-03-26] MEDS: CETIRIZINE HCL 10 MG TABLET PO SCH (21:07)
[2025-03-26] MEDS: LOSARTAN POTASSIUM 50 MG TAB PO SCH (21:07)
[2025-03-26] MEDS: AZELASTINE HCL 0.1% NASAL 200 SPRAYS/27,400 MCG BTL SCH (21:11)
[2025-03-26] MEDS: LATANOPROST 0.005% OP SOLN 2.5 ML BTL OP SCH (21:12)
--- NOTE | 2025-03-26 21:33 | Magnetic Resonance Report ---
EXAM: MR angio neck wo/w con CLINICAL HISTORY: Cerebrovascular Accident. TECHNIQUE: Multiplanar, multi-echo MRI sequences were taken through the neck without intravenous contrast administration. COMPARISON: None. FINDINGS: Carotid Arteries: Common carotid arteries, internal carotid arteries, and external carotid arteries bilaterally are patent. No evidence of significant stenosis, occlusion, or aneurysm. No significant atherosclerotic changes. Vertebral Arteries: Vertebral arteries bilaterally are patent. No evidence of significant stenosis, occlusion, or aneurysm. No significant atherosclerotic changes. Subclavian Arteries: Subclavian arteries bilaterally are patent. No evidence of significant stenosis, occlusion, or aneurysm. Supraclavicular Regions: Both sides are occupied by fat with no evidence of encapsulated lesion, sizable mass lesion, or fluid collection. Thyroid: Normal MR appearance with no evidence of cysts or masses. Parotid and Submandibular Glands: Normal appearance on both sides. Larynx: Normal appearance of the cartilaginous framework with patent endo-laryngeal air column. Neck Compartments: Normal appearance of the lateral and posterior compartments. Lymph Nodes: No evidence of suspicious cervical or superior mediastinal adenopathy. IMPRESSION: Normal non-contrast MRI study of the head and neck. Electronically signed by Norm Irizarry 03-26-2025 9:32 PM
[2025-03-26] MEDS ORDERED: MELATONIN 3 MG TAB PO PRN (21:57)
[2025-03-26] MEDS: IPRATROPIUM BROMIDE NASAL SPRAY 0.06% 15ML SCH (22:14)
[2025-03-27 06:18] LABS: Hematocrit (blood only) 37.2 % (42.0-52.0); Hemoglobin 12.6 g/dl (14.0-18.0); Mean Corpuscular Hemoglobin 31.0 pg (25.0-34.0); Mean Corpuscular Volume 91.4 fL (80.0-100.0); Platelet Count 212 K/uL (130-400); RDW Standard Deviation 46.1 fL (36.4-46.3); Red Blood Count 4.07 M/uL (4.70-6.10); White Blood Count 6.13 K/ul (4.8-10.8)
[2025-03-27 06:33] LABS: Anion Gap 4.0 (3-11); Blood Urea Nitrogen 20.0 mg/dl (6-23); Calcium 9.2 mg/dl (8.6-10.3); Carbon Dioxide 28.0 mmol/L (21-32); Chloride 106.0 mmol/L (98-107); Creatinine Clr Calc Pharmacy 53.1 ml/min; Glucose 98.0 mg/dl (70-99(Fasting)); Potassium 4.0 mmol/L (3.5-5.1); Sodium 138.0 mmol/L (136-145)
[2025-03-27] MEDS: LEVOTHYROXINE SODIUM 50 MCG TABLET PO SCH (07:01)
[2025-03-27] MEDS: CLOPIDOGREL BISULFATE 75 MG TAB PO SCH (08:24)
[2025-03-27] MEDS: ASPIRIN 81 MG ECTAB PO SCH (08:24)
[2025-03-27] MEDS: FLUTICASONE PROPIONATE NA SPR 16 GM BTL SCH (08:25)
[2025-03-27] MEDS: FOLIC ACID 1 MG TAB PO SCH (08:25)
[2025-03-27] MEDS: THIAMINE HCL 100 MG TAB PO SCH (08:25)
[2025-03-27] MEDS ORDERED: IPRATROPIUM BROMIDE NASAL SPRAY 0.06% 15ML SCH (09:00)
[2025-03-27] MEDS ORDERED: ATORVASTATIN 40 MG TAB PO SCH (09:00)
[2025-03-27] MEDS ORDERED: CETIRIZINE HCL 10 MG TABLET PO SCH (09:00)
--- NOTE | 2025-03-27 10:15 | Hospitalist Progress Note ---
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 Patient reported he had seen "floaters" until 10AM on 03/26/25. Patient then had worsening blurry vision. Patient currently reports he has no blurry vision and is feeling well. #Right distal Posterior Cerebral Artery occlusion #Ischemic stroke VSS, no focal deficits have been observed, no floaters, blurriness subjectively, no focal weakness, no nystagmus or n/v CTA head showing occlusion of the distal half of the R [employer]NAGER OF MANU[employer]ING; CTA neck showing atherosclerotic plaques of b/l ICAs but only 30% stenosis of L ICA. However, MRI showed no evidence of stroke. Due to MRI showing no evidence, will use MRI to base medical treatment. ABCDD score is 3. - CT head w/o con showing no acute intracranial pathology - due to negative MRI and having a 3 on his ABCDD score, this is a low-risk TIA. Will discontinue - Continue monitoring VS and serial neuro checks - PT/OT to check for any potential weakness BP has been within normal limits with max systolic 145 while in ER - allowing for permissive hypertension; prn antihypertensive for BP >220/120 - May continue home losartan 50mg qHS #Dyslipidemia lipid panel 03/22/25 WNL, on atorvastatin 20mg at home -Continue with atorvastatin 80mg due to stroke in the setting of atherosclerotic disease Chronic, stable: #Alcoholic dementia- continue quetiapine 450mg daily; continue abstaining from alcohol -Cardiogram ordered to see for any a. fib due to alcohol #HTN- continue losartan 50mg nightly #GERD- continue protonix 40mg daily #glaucoma- continue latanoprost 1drp b/l qHS #hypothyroidism- continue levothyroxine 50mcg daily Code: conditional (no CPR; allowing intubation and artificial ventilation) FEN/GI: regular diet as tolerated VTE ppx: lovenox 40mg subQ daily Dispo: med/surg tele Admission and Anticipated Discharge Date Admission Date: March 26, 2025 Subjective Patient is a 70 year old male with history of hypertension, alcohol use disorder, and alcohol dementia, came into the ED due to blurry vision. Patient stated the floaters went away and his eyes were getting worsening blurriness. Patient then went to ED. Patient stated that today he is feeling good and has no blurry vision. Patient is eating and drinking okay. Patient answered questions appropriately. Review of Systems Constitutional: as per Subjective / HPI Eyes: as per Subjective / HPI Physical Exam Constitutional: WD/WN, vitals as above Respiratory: normal respiratory effort, lungs clear to auscultation Cardiovascular: RRR, no murmur, no edema Musculoskeletal: Extremities: strength 5/5 throughout (in arm flexion/extension and leg flexion. Outsole Splicer STR 5/5 B/L) Neurologic: Cranial Nerves: EOM intact bilaterally, able to elevate shoulders bilaterally and no nystagmus CN 3, 4, 5, 6, 7, 11, 12 grossly intact. Patient has hearing aids in ears B/L. Psychiatric: Orientation: alert and cooperative Eye Contact: good eye contact Results & Data Results & Data Vital Signs (Past 12 Hours) Vital Signs Temp Pulse Pulse Resp BP BP Pulse Ox 03/27/25 07:48 61 03/27/25 07:43 36.6 C 65 18 126/79 96 03/27/25 03:13 36.5 C 61 18 120/73 95 03/26/25 22:42 36.6 C 70 18 129/80 97 03/26/25 21:59 60 O2 Del Method 03/27/25 07:48 03/27/25 07:43 Room Air 03/27/25 03:13 Room Air 03/26/25 22:42 Room Air 03/26/25 21:59 (4) Alcoholic dementia Dementia behavioral or psychological symptom: with other behavioral disturbance Dementia severity: moderate Qualified Code(s): F10.27 - Alcohol dependence with alcohol-induced persisting dementia
[2025-03-27 11:28] VITALS: PULSE 69; TEMP 98.1; O2SAT 98
--- NOTE | 2025-03-27 13:00 | XCELERA ---
[id number]
[2025-03-27] MEDS ORDERED: STROKE PATIENT DISCHARGE STA (14:34)
--- NOTE | 2025-03-27 14:36 | Discharge Summary ---
Date of Service March 27, 2025 Admission HPI Per Admitting Provider Star is a 70yo male with PMHx HTN, chronic alcoholism with hospitalization in 2023 and component of alcoholic dementia, here for visual disturbance of transient "floaters" and subsequent blurry vision, found to have R HATCHERY WORKER occlusion on imaging, admitted for acute R HATCHERY WORKER stroke for vital sign monitoring, stroke workup, medical stabilization, and neuro checks. HPI: Endorses he had "floaters" in both of his eyes this morning for about 45min before going away on their own. Soon after, he started having blurry vision at close distances which he noticed when he was reading, denies any other symptoms at that time such as dizziness, nausea/vomiting, or pain. Also notes the blurriness was in both eyes equally. Denies any recent falls, trauma, recent alcohol use, or other substance use. Denies any recent illness, nausea/vomiting, dizziness, tingling/numbness, imbalance when walking, or difficulty eating/swallowing. ER course: given aspirin 81mg, clopidogrel 300mg - given diet, ate full lunch without issue Home situation: lives on his own in 1-floor house only with his pet dog. Denies any home health services or ambulation assistance. Admission Exam Per Admitting Provider Constitutional: Patient appears in no acute distress. HENT: Head: Normocephalic and atraumatic. Eyes: EOMI, PERRL Mouth/Throat: Mucous membranes moist. Neck: Trachea midline. Neck supple. Cardiovascular: RRR, No murmurs, rubs or gallops. Intact distal pulses. Pulmonary/Chest: No respiratory distress. Breath sounds clear and equal bilaterally. No wheezes or rales. Abdominal: Abdomen soft, no tenderness, rebound or guarding. Musculoskeletal: No edema, tenderness or deformity noted. Skin: Warm and dry. No rash, erythema, pallor or cyanosis Psychiatric: Appropriate mood and affect for situation. Neurological: Alert and keenly responsive. Facies symmetric. Able to raise eyebrows, close eyes, smile, puff mouth, stick out tongue, move tongue left and right and raise palate symmetrically. Able to shrug shoulders. PERRLA. SILT to forehead below eye and at jawline. Can hear soft noise bilaterally. Strength 5/5 in bilateral upper and lower extremities. SILT throughout bilateral upper and lower extremities. Principal Diagnosis TIA Discharge Exam Constitutional WD/WN, vitals as above Respiratory normal respiratory effort, lungs clear to auscultation Cardiovascular RRR, no murmur, no edema Musculoskeletal Extremities: strength 5/5 throughout (in arm flexion/extension and leg flexion. 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 5/5 B/L) Neurologic Cranial Nerves: EOM intact bilaterally, able to elevate shoulders bilaterally and no nystagmus Psychiatric Orientation: alert and cooperative Eye Contact: good eye contact Discharge Data Allergies Allergy/AdvReac Type Severity Reaction Status Date / Time morphine Allergy Unknown Verified 01/17/25 13:57 Consultations 03/26/25 13:20 ED Decision to Admit Stat Ordered Studies 03/26/25 10:57 CT angio head w con Stat CT angio neck with con Stat CT head/brain wo con Stat 03/26/25 15:54 MR angio head wo con Urgent MR angio neck wo/w con Routine MR brain wo con Routine Hospital Course (1) Acute right arterial ischemic stroke, HATCHERY WORKER (posterior cerebral artery): (2) Blurry vision: (3) History of alcohol abuse: (4) Alcoholic dementia: José Miguel Graves is a 70yo male with with PMH of hypertension, alcohol use disorder, and alcoholic dementia who presented into the ED with blurry vision. Patient reported he had seen "floaters" until 10AM on 03/26/25. Patient then had worsening blurry vision. Patient currently reports he has no blurry vision and is feeling well. #Right distal Posterior Cerebral Artery occlusion #Ischemic stroke VSS, no focal deficits have been observed, no floaters, blurriness subjectively, no focal weakness, no nystagmus or n/v CTA head showing occlusion of the distal half of the R HATCHERY WORKER; CTA neck showing atherosclerotic plaques of b/l ICAs but only 30% stenosis of L ICA. However, MRI showed no evidence of stroke. Due to MRI showing no evidence, will use MRI to base medical treatment. ABCDD score is 3. Due to ABCDD score is 3, patient has low-risk TIA. Will leave to outpatient provider to decrease antiplatelet medication if needed. - CT head w/o con showing no acute intracranial pathology - Continue aspirin 81mg and clopidogrel 75mg - Continue monitoring VS and serial neuro checks - PT/OT to check for any potential weakness BP has been within normal limits with max systolic 145 while in ER - allowing for permissive hypertension; prn antihypertensive for BP >220/120 - May continue home losartan 50mg qHS #Dyslipidemia lipid panel 03/22/25 WNL, on atorvastatin 20mg at home -Continue with atorvastatin 80mg due to stroke in the setting of atherosclerotic disease Chronic, stable: #Alcoholic dementia- continue quetiapine 450mg daily; continue abstaining from alcohol -Cardiogram ordered to see for any a. fib due to alcohol #HTN- continue losartan 50mg nightly #GERD- continue protonix 40mg daily #glaucoma- continue latanoprost 1drp b/l qHS #hypothyroidism- continue levothyroxine 50mcg daily Code: conditional (no CPR; allowing intubation and artificial ventilation) FEN/GI: regular diet as tolerated VTE ppx: lovenox 40mg subQ daily Dispo: med/surg tele Total Time Total Time Spent Total Time Spent (In Minutes): per attending Discharge Plan Discharge Items Patient Disposition: Home - Self-Care Reason For Visit: BLURRINESS, R HATCHERY WORKER STROKE Discharge Diagnosis: TIA Condition on Discharge: Fair Activity: Per Instructions section Non-emergency contact: Primary Care Provider Call non-emergency contact if: your symptoms worsen and your temperature is above 101.5 Follow-up/Referrals: Musa Hernandez DO [Primary Care Provider] - 04/03/25 9:30 am Diet: Regular Addtl Attending Provider Instructions: You were admitted after experiencing blurry vision and some spots in your vision. Since this is a symptoms that could be concerning for a stroke, we did head imaging (head CT), which showed a small clot that could suggest an acute stroke. However, we did additional imaging afterwards (MRI) that did not show any stroke. This could mean that what you experienced could have been either a stroke or what we call a "mini stroke", which is also known as a transient ischemic attack (TIA). We also had our speech therapist and physical therapist evaluate you to ensure you did not have any additional needs such as acute rehab placement to strengthen yourself. Given these imaging findings and that your symptoms resolved, we find you stable for discharge back home today with the following medication changes: - Aspirin 81 mg daily and Plavix 75 mg daily - Atorvastatin dose increase. Please take Atorvastatin 80 mg once daily Thank you for allowing us to participate in your care. Pending Studies at Discharge: No Stand-Alone Forms: [facility], Smoking Cessation, Medications to Prevent Stroke Medications and DC Order Prescriptions: New atorvastatin 40 mg Tablet 80 mg PO HS Qty: 30 0RF clopidogrel 75 mg Tablet 75 mg PO QAM Qty: 30 0RF aspirin 81 mg Tablet,Delayed Release (Dr/Ec) 81 mg PO QAM Qty: 30 0RF Continued fluticasone propionate 50 mcg/actuation spray,suspension 2 spray INTRANASAL DAILY Qty: 16 0RF levothyroxine 50 mcg tablet 50 mcg PO DAILYBB Qty: 90 3RF losartan 50 mg tablet 50 mg PO HS Qty: 90 3RF pantoprazole 40 mg tablet,delayed release (DR/EC) 40 mg PO DAILYBB Qty: 90 3RF azelastine 137 mcg (0.1 %) spray,non-aerosol 2 spray intranasal BID Qty: 30 0RF Rx Instructions: administer into each nostril quetiapine [Seroquel] 300 mg tablet 450 mg PO DAILY Belsomra 10 mg tablet 10 mg PO HS PRN (Reason: Sleep) naproxen 375 mg tablet 375 mg PO BID PRN (Reason: knee pain) acetaminophen 325 mg capsule 650 mg PO Q6H PRN (Reason: Pain) pseudoephedrine HCl [Sudogest] 60 mg tablet 120 mg PO Q12H PRN (Reason: Congestion) guaifenesin 400 mg tablet 400 mg PO Q4H PRN (Reason: Cough) diclofenac sodium [Arthritis Pain (diclofenac)] 1 % gel 2 g topical QID PRN (Reason: Pain) Rx Instructions: apply to single elbow, wrist or hand; for hand includes palm/fingers/back of hand folic acid 1 mg Tablet 1 mg PO QAM Qty: 30 0RF thiamine HCl (vitamin B1) 100 mg Tablet 100 mg PO QAM Qty: 30 0RF trazodone 100 mg tablet 200 mg PO HS Qty: 30 0RF latanoprost 0.005 % drops 1 drp ophthalmic (eye) HS Rx Instructions: INSTILL 1 DROP INTO EACH EYE AT BEDTIME FOR GLAUCOMA cetirizine 10 mg Tablet 10 mg PO DAILY ipratropium bromide 42 mcg (0.06 %) spray,non-aerosol 2 spray intranasal DAILY Rx Instructions: Use 2 spray(s) in each nostril once daily omega 5-yvg-ywx-fish oil [Fish Oil] 60-90-500 mg capsule 1 cap PO DAILY Discontinued atorvastatin 20 mg tablet 20 mg PO HS Qty: 90 3RF Discharge Orders: Discharge Order (Routine); Ordered 03/27/25 Ordered By: Juan Lieberman Admission Data Admit Date/Time: 03/26/25 14:34 Attending Provider: Jorge A Giles Admit Provider: Juan Jacome V. Primary Care Provider: Musa Hernandez Other Providers: Alec Javed Other Interventions: Discharge Summary Assessment (RN) Last Done: 03/27/25 14:47 Supervising Physician Co-Signing Physician Notes Attending attestation Pt seen and examined in concert with Dr. Liebreman. In agreement with the documented findings as noted in the resident documentation with any exceptions or additions as noted here. Patient reports return to symptomatic baseline and resolution of neurologic symptoms within 24 hours of presentation. Reviewed extensively per Dr. Lieberman's assessment re: ABCD2 and would warrant confirmation through PCP re: DAPT vs. aspirin monotherapy at that time. VS as noted. On examination, S1/S2 nl RRR no MCG. CTAB. Abd NT/ND BS+ve. CNII- XII grossly intact as tested. STR 5/5 bilateral UE and LE Ischemic CVA vs. TIA - MRI without findings of CVA, CT as noted. ABCD2 as noted w/ recommendation for monotherapy. Will continue DAPT at this time as well as atorvastatin 80mg and defer further adjustment after discussion w/ patient to PCP for most comprehensive understanding of history. Else see resident documentation as noted. Total attending physician time spent with this patient's care on the day of discharge: 42 minutes. Resident Activity Tracking Resident Involvement: Resident Care Provided Care Provided: Adult Hospital Medicine
[2025-03-27 14:48] VITALS: BP 126/79
--- NOTE | 2025-03-29 09:38 | Pharmacy Report ---
Pharmacist Stroke Counseling - Date of Service March 29, 2025 - Scope: Pharmacy has been consulted to provide medication discharge counseling for this patient admitted with transient ischemic attack as per the Pharmacist Discharge Counseling for Stroke Patients Protocol. - Medications on Discharge: Home Medications Medication Instructions Recorded Confirmed acetaminophen 325 mg capsule 650 mg PO Q6H PRN Pain 09/01/24 03/28/25 naproxen 375 mg tablet 375 mg PO BID PRN knee pain 09/01/24 03/28/25 pseudoephedrine HCl 60 mg tablet 120 mg PO Q12H PRN Congestion 10/06/24 03/28/25 (Sudogest) suvorexant 10 mg tablet (Belsomra) 10 mg PO HS PRN Sleep 10/06/24 03/28/25 diclofenac sodium 1 % topical gel 2 g topical QID PRN Pain 01/09/25 03/28/25 (Arthritis Pain (diclofenac)) guaifenesin 400 mg tablet 400 mg PO Q4H PRN Cough 01/09/25 03/28/25 quetiapine 300 mg tablet (Seroquel) 450 mg PO DAILY 01/11/25 03/28/25 cetirizine 10 mg tablet 10 mg PO DAILY 03/26/25 03/28/25 ipratropium bromide 42 mcg (0.06 2 spray intranasal DAILY 03/26/25 03/28/25 %) nasal spray latanoprost 0.005 % eye drops 1 drp ophthalmic (eye) HS 03/26/25 03/28/25 omega 2-uhh-oou-fish oil 60 mg-90 1 cap PO DAILY 03/26/25 03/28/25 mg-500 mg capsule (Fish Oil) Nasal Wash inhalation BID 03/28/25 03/28/25 tavaborole 5 % topical solution 1 applic topical DAILY 03/28/25 03/28/25 with applicator New Rx's Medication Instructions Recorded folic acid 1 mg tablet 1 mg PO QAM #30 tabs 06/23/24 thiamine HCl (vitamin B1) 100 mg 100 mg PO QAM #30 tabs 06/23/24 tablet trazodone 100 mg tablet 200 mg (2 x 100 mg) PO HS #30 tabs 06/23/24 fluticasone propionate 50 2 spray intranasal DAILY #16 grams 11/14/24 mcg/actuation nasal spray,suspension levothyroxine 50 mcg tablet 50 mcg PO DAILYBB #90 tabs 11/14/24 losartan 50 mg tablet 50 mg PO HS #90 tabs 11/14/24 pantoprazole 40 mg tablet,delayed 40 mg PO DAILYBB #90 tabs 11/14/24 release azelastine 137 mcg (0.1 %) nasal 2 spray intranasal BID #30 mL 02/17/25 spray aspirin 81 mg tablet,delayed 81 mg PO QAM #30 tabs 03/27/25 release atorvastatin 40 mg tablet 80 mg (2 x 40 mg) PO HS #30 tabs 03/27/25 clopidogrel 75 mg tablet 75 mg PO QAM #30 tabs 03/27/25 - Action: The above medications, specifically ones for stroke treatment/prophylaxis, have been reviewed in detail with the patient and/or patient market survey representative(s) prior to discharge. This includes indication, common adverse reactions, drug interactions, and medication administration. Medication counseling has been employed using the teach-back method to ensure understanding. - Outcome: The patient and/or patient market survey representative(s) have demonstrated understanding of the medications. Additional comments: Patient started on plavix + aspirin. Atorvastatin increased from 20mg to 80mg. Counseled patient on use/importance of continuing medications as prescribed. Side effects and when to contact his physician also reviewed. Patient had no questions or concerns and stated that his follow up appointment was already scheduled for next week. Thank you for allowing pharmacy to be involved in the care of this patient. Please call [phone] with any additional questions
--- NOTE | 2025-04-09 07:39 | Coding Query ---
CODING QUERY To promote full compliance with coding requirements relating to patient care, provider participation is requested in all cases of data coder operator uncertainty. Please assist us with the question(s) below: Coding Question(s): DS lists Primary dx and D/C dx as TIA. It also lists Hospital Course: Acute right arterial ischemic stroke, [employer]AD[employer] SOLUTION ARCHITECT (posterior cerebral artery) Please clarify if this is a TIA or the ischemic stroke, so that we may code correctly. Physician's Response(s): Thank you for reaching out! This was more complicated as the CT called one thing but the more specific MRI didn't show sign of CVA. Neurology agreed that it was likely a TIA and we managed it that way, so TIA please. - Kit Thank you Charlotte Irizarry Principal Diagnosis: "that condition established after study, to be chiefly responsible for occasioning the admission of the patient to the hospital for care." Co-Existing Principal Diagnosis: "when two or more diagnoses equally meet the criteria for principal diagnosis as determined by the circumstances of admission, diagnostic work up, and/or therapy provided, and the Alphabetic Index, Tabular List, or another coding guideline does not provide sequencing direction, any one of the diagnoses may be sequenced first." "When the physician has documented what appears to be a current diagnosis in the body of the record, but has not included the diagnosis in the final diagnostic statement, the physician should be asked whether the diagnosis should be added." (Source Coding [facility] 2 QTR90. p3-4) [email or web address]
== END 2025-03-27 15:49 | disposition home or self-care (01) | DRG 69 ==
LOC: ED 10:30 → SUATTDRO 14:34 → 2N 14:34